=== PATIENT | male | born 1945 | race Caucasian/White ===

== ENCOUNTER → 2019-05-20 12:19 | Outpatient (BNVA) | payer MEDICARE, OTHER, SELFPAY | PROVIDERS: Family Provider Physician Assistant; PCP Physician Assistant; Visit Provider Orthopaedic Surgery | DX: M11.262 Other chondrocalcinosis, left knee (principal); M25.562 Pain in left knee | CPT/HCPCS: 73560; 73565 ==

== ENCOUNTER 2019-05-29 08:54 | Outpatient (CLI) | payer MEDICARE, OTHER, SELFPAY ==
--- NOTE | 2019-05-29 09:30 | MR_ITS ---
WS: [id number] MRI LEFT KNEE NONCONTRAST TECHNIQUE: Axial PD, coronal PD fat sat, coronal PD, sagittal PD, and sagittal PD fat-sat images obta ined. CLINICAL INFORMATION: pain, positive Thesaley's exam COMPARISON: None. FINDINGS: Distal quadriceps and patella tendons are intact. Small amount of prepatellar soft tissue edema. Ante rior and posterior cruciate ligaments are intact. Acute appearing horizontal tear involving the poste rior horn medial meniscus extending to the articular surface. Anterior horn is better preserved. Norm al lateral meniscus. Mild chondromalacia patella. Medial and lateral patellar retinaculum are intact. Normal popliteal fos sa. Edema along the superficial fibers medial collateral ligament and patellar retinaculum consistent with ligamentous strain. MCL appears grossly intact. Normal lateral collateral ligament. Small amoun t of edema involving the posterior medial femoral condyle likely due to reactive edema or contusion. Mild chondromalacia involving the medial and lateral joint compartments. MR/MR knee LT wo con* [id number] IMPRESSION: 1. Acute appearing horizontal tear involving the posterior horn medial meniscu s extending to the articular surface. 2. Small amount of edema involving the medial femoral condyle along the outer margin articular surface. Adjacent edema in the overlying soft tissues. 3. Small amount of edema involving the proximal superficial fibers of the MCL insertion which appears grossly intact. Small amount of edema along the medial patellar retinaculum. 4. Anterior and posterior cruciate ligaments are intact. 5. Mild chondromalacia patella.
== END 2019-05-29 08:55 | disposition home or self-care (01) ==
LOC: RADSHAW 08:58
PROVIDERS: Family Provider Physician Assistant; PCP Physician Assistant; Visit Provider Orthopaedic Surgery
DX: S83.242A Other tear of medial meniscus, current injury, left knee, initial encounter (principal); M25.562 Pain in left knee; X58.XXXA Exposure to other specified factors, initial encounter; M22.42 Chondromalacia patellae, left knee; R60.1 Generalized edema
CPT/HCPCS: 73721

== ENCOUNTER 2019-06-04 10:19 | Day surgery (SDC) | payer MEDICARE, OTHER, SELFPAY ==
[2019-06-03 15:44] VITALS: BMI 25.5
[2019-06-04] VITALS (7 sets, daily range): BP systolic 139–168; BP diastolic 73–100; PULSE 65–93; RESP 16–18; TEMP 36.2–37; O2SAT 96–100
[2019-06-04] MEDS: sodium chloride 0.9% 1,000 ML 30 ML IV (10:59)
--- NOTE | 2019-06-04 11:12 | ANES.PREANES ---
Pre-Anesthetic Assessment Pre-Anesthetic Assessment: Height/Weight: Height 1.8 m Weight 83.007 kg Temp Pulse Resp BP Pulse Ox 98.6 F 93 18 163/100 98 06/04/19 10:46 06/04/19 10:46 06/04/19 10:46 06/04/19 10:46 06/04/19 10:46 Preop Diagnosis: left knee medial meniscal tear Proposed Procedure: Operation Date: 06/04/19 12:00 Proposed Procedures p Knee Arthroscopy with meniscectomy 40341 S83.207A(Left) - Singh Zabala DO Last intake: Intake Last Liquid Date 06/03/19 Last Liquid Time 18:00 Last Solid Date 06/03/19 Last Solid Time 18:00 Social: Packs per day: 1 Pack years: 4 Comment: quit 50 y Exam: Pre-Anes Outpt Exam: alert, oriented x 3, clear to auscultation bilaterally and regular rate & rhythm Airway: Submandibular: WNL Cervical ROM: Other MP: 2 CV/HEM: CV/HEM: HTN Comments: off meds 6y ago GI: Comments: s/p ulcerative colitis s/p colectomy Metabolic: Metabolic: DM Comments: off meds post 64# x 3 months Musc/skel: Musc/skel: Lower Back Pain Comments: nonradiculopahty Meds/Allergies Current Medications: Current Medications Generic Name Dose Route Start Last Admin Trade Name Freq PRN Reason Stop Dose Admin Sodium Chloride 1,000 mls @ 30 ml s/hr 06/04/19 10:45 06/04/19 10:59 Sodium Chloride 0.9% IV 06/05/19 10:44 30 mls/hr .Q24H SUNSHINE Administration PFSH Anesthesia PFSH: Family History (Updated 06/03/19 @ 15:42 by Chitra Levy) Other Diabetes Lung cancer Social History Smoking and tobacco status: never smoked Alcohol intake: never Data Anesthesia Cardiac Studies: No Data to Display
--- NOTE | 2019-06-04 12:38 | PM.HPUD ---
H&P update H&P Update: DATE OF SURGERY/PROCEDURE: 06/04/19 DATE H&P PERFORMED: 06/02/19 H&P UPDATE INFORMATION: H&P completed within last 30 days PREOP DIAGNOSIS: left knee medial meniscal tear PRIMARY INDICATION FOR PROCEDURE: left knee arthroscopy with med meniscectomy PLANNED PROCEDURE: Operation Date: 06/04/19 12:00 Proposed Procedures p Knee Arthroscopy with meniscectomy 27766 S83.207A(Left) - Singh Zabala, DO Full H&P Medications/Allergies: Current Medications: Current Medications Generic Name Dose Route Start Last Admin Trade Name Freq PRN Reason Stop Dose Admin Sodium Chloride 1,000 mls @ 30 ml s/hr 06/04/19 10:45 06/04/19 10:59 Sodium Chloride 0.9% IV 06/05/19 10:44 30 mls/hr .Q24H SUNSHINE Administration Perinent History: Family History: Family History (Updated 06/03/19 @ 15:42 by Chitra Levy) Other Diabetes Lung cancer Social History: Social History Smoking and tobacco status: never smoked Alcohol intake: never
[2019-06-04] MEDS: EPINEPHrine 1 mg/mL INJ 3 MG XX (13:06)
[2019-06-04] MEDS: neomycin-poly-bacitracin oint 28 gm 1 APPLIC TOPICAL (13:27)
[2019-06-04] MEDS: triamcinolone 40 mg/mL SDV IM (13:27)
--- NOTE | 2019-06-04 13:37 | P.OP_ITS ---
Operative Report Date of procedure: 06/04/19 Pre-op Diagnosis: left knee medial meniscal tear Post-op diagnosis: other Post-op Diagnosis: Left knee medial parapatellar plica Degenerative tear left lateral meniscus Procedure Done: Diagnostic arthroscopy of the left knee with resection of lateral meniscal tear and resection of medial parapatellar plica Implants: Not applicable Specimens removed/disposition: synovium, plica and lateral meniscus removed in operating room and disposed of in operating room Pathology: none sent Surgeon: Singh Zabala Anesthesia: General Estimated blood loss (mL): 5 Tourniquet time (min): 20 (At 300 mmHg pressure) Complications: None Findings: Mild chondromalacia patella No pathology noted in medial lateral gutters Thickened medial parapatellar plica with a flap of tissue that was displacing into the medial joint line. Changes suggestive of chondrocalcinosis in the m edial lateral compartments of the knee. No tearing of the medial meniscus noted Degenerative fraying with chondral calcinosis noted within the degenerative tearing areas of the lateral meniscus. Softening of the articular cartilage of the tibial plateau with early grade 2 changes. Anterior and posterior cruciate ligaments are intact both visually endoprobe Condition: stable Disposition: PACU Brief History: 73-year-old white male with persistent complaints of medial joint pain of the left knee. X-ray show mild interim changes but not [id number] changes. Findings suggestive of chondrocalcinosis. The patient underwent MRI examination which showed increased signal in the medial meniscus possibly suggestive of medial meniscal tear. Risk, benefits financial complications of surgery is cussed with the patient. Risks of surgery include are not limited to failure to relieve all pain, nerve/blood vessel/injury, infection. There is a potential he could require more surgery at a later date. Medical complications can include blood clots, heart attack, stroke risk up to including . All questions were answered patient was agreeable to proceed with surgery. Procedure: Patient identified. Surgical site was signed. Surgical permit was signed. The patient received 1.5 g of Zinacef intravenously for surgical prophylaxis. He was taken to the operating. He was placed supine on the operating room table. He was then placed under general anesthesia without difficulty. A tourniquet is placed about the upper aspect left thigh. The left lower extremities and sterilely prepped and draped in usual fashion. A timeout was performed. The operative limb was exsanguinated using Esmarch bandage tourniquet inflated to 300 mmHg pressure. Standard anteromedial anterolateral portals were made. The arthroscope was inserted through the anterolateral portal. The knee was distended using arthroscopic pump with sterile saline and dilute epinephrine solution. Arthroscopic probe was placed through the anteromedial portal. See the above findings. Using a motorized shaver resected the thickened plica band that was flipping into the medial joint. We visualize the lateral compartment using a meniscal biters motorized shaver resected the free edge fraying of the midportion to the anterior horn of the lateral meniscus. The knee was irrigated with sterile saline from the arthroscopic pump. The knee was injected with 10 cc of half percent ropivacaine and 40 mg of Kenalog. The 2 portal sites were closed with 4-0 nylon. Antibiotic ointment followed by sterile dressings and an Harpreet wrap from ankle to mid thigh was applied. Tourniquet was deflated during application of dressings. The patient was aroused from general anesthesia. He was taken to recovery. He tolerated surgery well. All counts are correct.
== END 2019-06-04 15:00 | disposition home or self-care (01) ==
PROVIDERS: Family Provider Physician Assistant; PCP Physician Assistant; Visit Provider Orthopaedic Surgery
PROC: (CPT 29870; principal; 2019-06-04 12:00)
DX: S83.242A Other tear of medial meniscus, current injury, left knee, initial encounter (principal); X58.XXXA Exposure to other specified factors, initial encounter; Z83.3 Family history of diabetes mellitus; I10 Essential (primary) hypertension; E11.9 Type 2 diabetes mellitus without complications; Z87.891 Personal history of nicotine dependence
CPT/HCPCS: 29881; 12345; 96365; J0171; J0697; J1885; J2001; J2250; J2704; J2795; J3010; J3301; J7030; J7050

== ENCOUNTER 2019-06-23 09:38 | Outpatient (CLI) | payer MEDICARE, OTHER, SELFPAY ==
[2019-06-23 10:37] LABS: Basophils % 0.5 %; Eosinophils # 0.1 10^3/uL (0.0-0.8); Eosinophils % 1.1 %; Hematocrit 38.3 % (42.0-52.0); Hemoglobin 12.4 g/dL (11.7-16.6); Lymphocytes # 0.9 10^3/uL (0.8-4.8); Lymphocytes % 16.7 %; Mean Corpuscular HGB Conc 32.4 g/dL (30.0-36.0); Mean Corpuscular Hemoglobin 30.5 pg (28.0-34.0); Mean Corpuscular Volume 94.3 fL (80-94); Mean Platelet Volume 9.1 fL (7.4-10.4); Monocytes # 0.7 10^3/uL (0.2-0.9); Monocytes % 11.6 %; Neutrophils # 3.9 10^3/uL (1.8-7.7); Neutrophils % 69.9 %; Nucleated Red Blood Cells % 0 %; Platelet Count 166 10^3/cmm (130-400); Red Blood Count 4.06 10^6/uL (4.1-5.3); Red Cell Distribution Width 14.1 % (12.1-15.1); White Blood Count 5.6 10^3/uL (4.0-10.0)
[2019-06-23 10:57] LABS: Alanine Aminotransferase 12 U/L (0-41); Albumin Level 3.9 g/dL (3.5-5.2); Alkaline Phosphatase 85 IU/L (40-130); Anion Gap 19.2 (5-19); Aspartate Amino Transferase 18 U/L (0-40); Blood Urea Nitrogen 16 mg/dL (8-23); Calcium 10.1 mg/dL (8.5-10.5); Carbon Dioxide 26 mmol/L (22-29); Chloride 102 mmol/L (98-107); Globulin 4.6 g/dL (1.3-4.6); Glucose 109 mg/dL (65-115); Potassium 4.2 mmol/L (3.5-5.1); Sodium 143 mmol/L (136-145); Total Bilirubin 0.4 mg/dL (0.15-1.2); Total Protein 8.5 g/dL (6.6-8.7)
[2019-06-23 11:25] LABS: Lactate Dehydrogenase 144 U/L (135-225)
[2019-06-23 11:32] LABS: Erythrocyte Sedimentation Rate 66 mm/hr (0-10)
== END 2019-06-23 09:39 | disposition home or self-care (01) ==
LOC: CT 09:39
PROVIDERS: Family Provider Physician Assistant; PCP Physician Assistant; Visit Provider Internal Medicine Medical Oncology
DX: R59.0 Localized enlarged lymph nodes (principal); K51.90 Ulcerative colitis, unspecified, without complications; R59.1 Generalized enlarged lymph nodes; I71.9 Aortic aneurysm of unspecified site, without rupture; R91.8 Other nonspecific abnormal finding of lung field
CPT/HCPCS: 36415; 80053; 83615; 85025; 85651; 86141

== ENCOUNTER 2019-06-23 09:40 | Outpatient (CLI) | payer MEDICARE, OTHER, SELFPAY ==
--- NOTE | 2019-06-23 10:00 | CT_ITS ---
WS: [id number] CT CHEST, ABDOMEN AND PELVIS WITH CONTRAST HISTORY: NODULE OF R LUNG/ LYMPHADENOPATHY TECHNIQUE: Contiguous 5 mm axial imaging performed through the chest, abdomen and pelvis with IV cont rast, oral contrast has been provided. Coronal and sagittal reformats chest. Coronal and sagittal ref ormats through the abdomen and pelvis. All CT scans at [facility] use at least one of the se dose optimization techniques: automated exposure control; mA and/or kV adjustment per patient size (includes targeted exams where dose is matched to clinical indication); or iterative reconstruction. CONTRAST: Omnipaque 300; 95 mL IV. DLP: 1605.74 mGy.cm COMPARISON: 02/27/2019, 12/19/2018 and 09/21/[address]: Lungs are well-aerated. No change in the RIGHT lower lobe 4 mm pulmonary nodule since 2018. New RIGHT middle lobe nodule measures 4.1 mm. There are several new ill-defined opacifications in the RIGHT middle lobe adjacent to the superior fissure which may be inflammatory. No pericardial o r pleural effusions. Mild atherosclerosis aorta. Normal size pulmonary artery. No adenopathy. Moderat e coronary artery calcifications. Small hiatal hernia. Abdomen CT: Liver, spleen and pancreas are negative. No acute process. Gallbladder is normally disten ded without adjacent inflammation. Normal adrenal glands. Mild perinephric stranding around each kidn ey with no obstruction. Dilatation of the mid infrarenal abdominal aorta with a maximum diameter of 3 .6 cm. Probably a saccular aneurysm with no change or increase. Calcification continues into the prox imal iliac arteries. Multiple lymph nodes are reidentified at the mesenteric root. Overall these lymp h nodes continue to decrease slightly in size since 02/27/2019. There are a few retroperitoneal lymph nodes which are stable. The largest lymph node anterior to the IVC below the duodenum measures 5.0 x 3.1 cm with slight decrease in size. Overall no new or increasing size of lymphadenopathy. No ascite s. Pelvic CT: No free fluid in the pelvis. Significant artifact through the pelvis secondary to patient' s bilateral hip prostheses. This is obscuring detail at the anastomotic site near the rectum. No recu rrent lesions are identified. No obstructive pattern. Biconcave L2 fracture is stable. Severe degenerative changes at L5-S1. Bilateral hip arthroplasties. CT/CT chest abd pel w con* IMPRESSION: 1. Prior colectomy. No obstructive pattern or new mass identified. 2. Mesenteric and retroperitoneal adenopathy is still identified but there has been a decrease in size of the lymph nodes overall with no new or increasing a denopathy. 3. Stable aortic aneurysm. 4. New RIGHT middle lobe nodules and probable postinflammatory opacifications. Recommend follow-up chest CT in 3 months.
[2019-06-23] MEDS: iohexol 300 mg/mL 100 mL Btl IV (12:01)
[2019-06-23] MEDS: iohexol 300 mg/mL 50 mL Btl PO (12:02)
== END 2019-06-23 09:41 | disposition home or self-care (01) ==
LOC: RAD 09:43
PROVIDERS: Family Provider Physician Assistant; PCP Physician Assistant; Visit Provider Physician Assistant
DX: R91.1 Solitary pulmonary nodule (principal); R59.9 Enlarged lymph nodes, unspecified; I71.9 Aortic aneurysm of unspecified site, without rupture; R91.8 Other nonspecific abnormal finding of lung field
CPT/HCPCS: 71260; 74177

== ENCOUNTER 2019-06-25 06:00 | Outpatient (CLI) | payer MEDICARE, OTHER, SELFPAY ==
--- NOTE | 2019-06-25 18:52 | ONC FU_ITS ---
Dr. Haq Patient Follow-Up Note Patient: Donta Gomes Unit #: [id number]: [id number] Dicatated By: Jason Haq M.D.Date of Visit:Jun 25, 2019 Onc Med Follow-up/Prog Note Chief Complaint: Lymphadenopathy. History of Present Illness: This is a 73 year-old man with retroperitoneal lymphadenopathy. He has a history of ulcerative colitis, initially diagnosed in 1991. He underwent total colectomy in 1994. He is currently not on any medication for it. He also has significant degenerative arthritis, for which he had undergone bilateral total hip arthroplasty. The procedure on the right was complicated by loosening of the femoral stem, requiring a revision procedure in August 2010. It was then further complicated by a periprosthetic right femur fracture which required bone grafting in March 2011. On 09/21/2018 he presented to the emergency room after he had fallen at home and injured his back. He apparently also sustained a head injury with loss of consciousness. His evaluation included a CT pulmonary angiogram, which showed no evidence for pulmonary embolus or other acute findings. There was evidence, though, of vangie hepatis and retroperitoneal lymphadenopathy, consisting of predominantly subcentimeter lymph nodes. He continued to have back pain, and the lumbar spine x-ray on 11/03/2018 showed evidence of a 25% anterior superior compression fracture at L2. Also noted were degenerative changes at L3-L4, L4-L5, and L5-S1. Further evaluation with CT abdomen/pelvis on 11/12/2018 showed lymphadenopathy around the celiac axis, retroperitoneum, and pancreatic head, with the largest soft tissue mass measuring 3.4 x 5.5 cm just inferior to the pancreatic head into the right of the midline. Numerous additional smaller lymph nodes were noted around the celiac axis, pancreas, and retroperitoneum. Also noted were right iliac lymph nodes, the largest measuring 1.5 cm. There was mild right-sided colonic wall thickening consistent with inflammatory or neoplastic change. There is age indeterminate compression fracture at L2. There were additional mixed lytic and sclerotic changes at L3 and L4. Head MRI showed no acute infarct, hemorrhage, or mass effect. A DEXA scan showed normal bone mineral density. On 12/19/[address] directed needle biopsy of the right retroperitoneal lymph node. The procedure was abandoned, as a safe window for the biopsy could not be identified. It was noted that the right retroperitoneal lymph node appeared stable from the November 2018 study, measuring 5.6 x 3.5 cm. I had seen him initially on 12/29/2018. He had limited activity due to his chronic right hip/femur issues, and he also reported having a long-standing problem with loose stools. He was otherwise not symptomatic. We discussed the fact that based on the size of the retroperitoneal lymph nodes, the CT findings were suspicious for a neoplastic process. However, as there has been no significant interval change between the November CT and the attempted needle biopsy procedure in December, he opted to just continue on close observation/expectant management. His medical illnesses, in addition to ulcerative colitis, include hypertension, hyperlipidemia, type II diabetes with peripheral neuropathy, chronic kidney disease, degenerative arthritis, benign prostatic hypertrophy, and macular degeneration. He also has vitamin B 12 deficiency. He has a history of smoking 1 pack of cigarettes daily, but only for 6 years. He quit smoking in 1972. He averages 1-2 alcoholic beverages 6 days a week. Interim History: Repeat CT abdomen/pelvis on 02/27/2019 showed stable retroperitoneal and mesenteric adenopathy since 11/12/2018. The largest lymph node on the right measured 5.4 x 3.6 cm. An abdominal aortic aneurysm appeared stable at 3.6 cm. In the absence of any evidence of disease progression, he continued on observation/expectant management. His CT scans of the chest, abdomen, and pelvis on 06/23/2019 showed no change in the right lower lobe pulmonary nodule measuring 4 mm. There is a new right middle lobe nodule measuring 4.1 mm. Also noted were several new ill-defined opacifications in the right middle lobe adjacent to the superior fissure, felt to be most likely inflammatory. There was mild perinephric stranding around each kidney, with no evidence of obstruction. The abdominal aortic aneurysm. Stable at 3.6 cm. Multiple lymph nodes at the mesenteric root continue to show slight decrease in size. A few retroperitoneal lymph nodes appeared stable. The largest node anterior to the IVC below the duodenum measured 5.0 x 3.1 cm with slight decrease in size. There was no new or increasing lymphadenopathy noted. He is seen for a followup visit. He has been feeling good generally. He says his energy is not bad. He had arthroscopic left knee surgery 3 weeks ago, and he still has somewhat restricted activity. He says he is walking, though. ECOG score is 1. He has good appetite. He has no fever or night sweats. He has no shortness of breath, cough, or chest pain. He has no GI or complaints. His left knee is still a little sore. He has no other joint or bone pain. He has neuropathy in his feet. Medications: Amoxicillin 1 Tablet (of 500 mg) Oral PRN, Aspirin 1 Tablet (of 81 mg) Oral daily, Atorvastatin Calcium 0.5 Tablet (of 80 mg) Oral at bedtime, B Complex 1 Tablet Oral daily, Flonase 1 spray(s) (of 50 mcg/act) Suspension Nasal at bedtime, Lomotil 2 Tablet (of 2.5-0.025 mg) Oral t.i.d. PRN, Norvasc 0.5 Tablet (of 10 mg) Oral daily Allergies: BRUCE Inhibitors, Lisinopril, and Morphine Sulfate. Review of Systems: Constitutional - He is feeling pretty good and he has good energy. He had arthroscopic surgery on his left knee about 3 weeks ago. His activity has declined somewhat. His appetite is good and his weight is up slightly. No fever, chills, hot flashes, or night sweats. ECOG score is 1, ENMT - No sinus congestion/drainage. No mouth sores. No sore throat or difficulty swallowing, Hematologic/Lymphatic - He bruises easily, Respiratory - No shortness of breath. No cough. No pleuritic pain or hemoptysis, Cardiovascular - No angina pain. No palpitations, Gastrointestinal - No nausea or vomiting. No heartburn or acid reflux. No diarrhea or constipation. No blood in the stool or black stools, Genitourinary (M) - No dysuria or hematuria. No urinary frequency. No urgency or incontinence, Musculoskeletal - His left knee is still sore from his surgery. He has no other joint or bone pain, Integumentary - No skin complications, Neurologic - No headache or dizziness. He has neuropathy in his feet, Psychiatric - No anxiety or depression. No insomnia. Vital Signs: Performed on Jun 25, 2019 08:57 Height - 71.00 in Weight - 193.2 lbs (HIGH) BSA - 2.08 sq.m BMI - 26.95 Temperature - 98.6 F Pulse - 93 /min Respiration - 20 /min BP - 150/80 mm(hg) (HIGH) O2 Sat - 96 % Pain - 2 Physical Examination: Constitutional - He looks good generally, Eyes - Sclerae nonicteric. Conjunctivae clear, ENMT - No lesions noted in the oral cavity, Hematologic/Lymphatic - No cervical, clavicular, or axillary adenopathy, Respiratory - Lungs are clear with good air movement bilaterally, Cardiovascular - Heart rhythm is regular. There is no murmur, gallop, or rub noted, Abdomen - Soft. Liver and spleen are not enlarged. There is no abdominal mass or ascites noted and there is no inguinal adenopathy, Extremities - No edema. Pedal pulses are palpable bilaterally, Neurologic - No focal neurologic deficits noted. Lab/Imaging: CBC shows hemoglobin 12.4 g, white blood cell count 5600,and platelet count 166,000. Sed rate is moderately elevated at 66 mm/hour. CRP is mildly elevated at 1.770 mg/dL. Comprehensive metabolic profile is unremarkable. Impression: 1. Patient with significant retroperitoneal lymphadenopathy, with the largest node just inferior to the pancreatic head into the right of the midline measuring 5.6 x 3.5 cm. By size criteria, it was suspected to be malignant. 2. CT directed needle biopsy was attempted 12/19/2018, but the procedure was abandoned for safety reasons. There was, however, no interval increase in the adenopathy compared to the prior CT scan from 11/12/2018. 3. He has had persistent low back pain following a fall and back injury in September 2018, presumably due to L2 vertebral compression fracture. 4. He has known history of ulcerative colitis, for which she underwent total colectomy 1994. He is currently not on medication for it. His other medical illnesses include: 5. Hypertension. 6. Hyperlipidemia. 7. Type II diabetes. 8. Chronic kidney disease. 9. Peripheral neuropathy. 10. Benign prostatic hypertrophy. 10. Degenerative arthritis/degenerative disease of the spine. 11. He had complications following previous right total hip arthroplasty resulting in periprosthetic fracture of the right femur and requiring bone grafting in March 2011. 12. He has B12 deficiency associated with the total colectomy. 13. He has macular degeneration of the right eye. Based on the size of the retroperitoneal lymph nodes, the CT findings were felt to be suspicious for a neoplastic process. However, he was not symptomatic with it, and thus far during followup there has been progression of the adenopathy or other fndings of malignancy. Plan: In the absence of any evidence of disease progression, he will continue on on observation/expectant management. I will see him again with a repeat CT scans in 3 months. If the findings are stable, I will then increase the interval of his surveillance to 6 months. Signed By: Jason Haq M.D. <<Signature on File>>
== END 2019-06-25 06:01 | disposition home or self-care (01) ==
LOC: ONCMED 15:13
PROVIDERS: Family Provider Physician Assistant; PCP Physician Assistant; Visit Provider Internal Medicine Medical Oncology
DX: R59.0 Localized enlarged lymph nodes (principal); E11.22 Type 2 diabetes mellitus with diabetic chronic kidney disease; I12.9 Hypertensive chronic kidney disease with stage 1 through stage 4 chronic kidney disease, or unspecified chronic kidney disease; N18.9 Chronic kidney disease, unspecified; E11.42 Type 2 diabetes mellitus with diabetic polyneuropathy; N40.0 Benign prostatic hyperplasia without lower urinary tract symptoms; M46.80 Other specified inflammatory spondylopathies, site unspecified; E53.8 Deficiency of other specified B group vitamins; Z90.49 Acquired absence of other specified parts of digestive tract
CPT/HCPCS: G0463

== ENCOUNTER 2019-09-29 07:33 | Outpatient (CLI) | payer MEDICARE, OTHER, SELFPAY ==
[2019-09-29 08:04] LABS: Basophils % 0.4 %; Eosinophils # 0.2 10^3/uL (0.0-0.8); Eosinophils % 2.2 %; Hematocrit 40.4 % (42.0-52.0); Hemoglobin 13.1 g/dL (11.7-16.6); Lymphocytes # 1.2 10^3/uL (0.8-4.8); Lymphocytes % 18.1 %; Mean Corpuscular HGB Conc 32.4 g/dL (30.0-36.0); Mean Corpuscular Volume 95.5 fL (80-94); Mean Platelet Volume 8.7 fL (7.4-10.4); Monocytes # 0.8 10^3/uL (0.2-0.9); Monocytes % 11.1 %; Neutrophils # 4.6 10^3/uL (1.8-7.7); Neutrophils % 67.9 %; Nucleated Red Blood Cells % 0 %; Platelet Count 205 10^3/cmm (130-400); Red Blood Count 4.23 10^6/uL (4.1-5.3); Red Cell Distribution Width 13.8 % (12.1-15.1); White Blood Count 6.7 10^3/uL (4.0-10.0)
--- NOTE | 2019-09-29 08:10 | CT_ITS ---
WS: [id number] CT CHEST, ABDOMEN, AND PELVIS TECHNIQUE: Contrast-enhanced CT of the chest, abdomen, and pelvis with coronal and sagittal reformatt ed images. CLINICAL INFORMATION: PULMONARY NODULE/LYMPHADENOPATHY COMPARISON: CT June 23, 2019, February 27, 2019, December 19, 2018, November 12, 2018. DLP: 1580.[address] scans at [facility] use at least one of these dose optimization techniques: automat ed exposure control; mA and/or kV adjustment per patient size (includes targeted exams where dose is matched to clinical indication); or iterative reconstruction. CT CHEST: Moderate chronic emphysematous changes. No acute pulmonary infiltrates. Slight bibasilar atelectasis. Stable noncalcified right lower lobe 4 mm pulmonary nodule. Stable right middle lobe 4 mm pulmonary nodule. No acute pulmonary infiltrates today. Coronary calcification. Small esophageal hiatal hernia. No mediastinal or hilar lymphadenopathy. No axillary lymphadenopathy. CT ABDOMEN AND PELVIS: Normal liver. Normal gallbladder. Normal spleen. Small esophageal hiatal herni a. Normal pancreas. Adrenal glands are normal. No hydronephrosis. Mild renal cortical atrophy. Stable shotty periaortic and retroperitoneal lymph nodes. These are stable in appearance since the prior ex amination.Largest lymph node in the aortocaval region and today measures 4.5 x 2.6 cm decrease in siz e from previous. Stable prominent lymph nodes along the mesenteric root. Stable infrarenal abdominal aortic aneurysm. This is unchanged in appearance. This measures 3.6 x 3.2 CM. Bilateral THAs degrade images in the pelvis. Postoperative changes prior colectomy. Stable saccular infrarenal abdominal aortic aneurysm measuring 3.6 CM by 3.2 cm. Moderate aortic athe romatous disease with biiliac calcification. CT/CT chest abd pel w con* IMPRESSION: 1. 1 or 2 stable tiny 4 mm noncalcified pulmonary nodules described above. No new pulmonary opacities. 2. Previously described nodular infiltrate in the right middle lobe has resolv ed. 3. No mediastinal or hilar lymphadenopathy. 4. No evidence of progressive disease in the abdomen or pelvis. 5. Improved aortocaval lymph node is decreased in size today measuring 4.5 x 2 .6 cm. 6. Stable shotty periaortic and retroperitoneal lymph nodes. Stable prominent lymph nodes along the mesenteric root. 7. Prior colectomy. 8. Bilateral THAs degrade images in the pelvis. 9. Stable abdominal aortic aneurysm measuring 3.6 x 3.2 CM. 10. Stable biconcave compression at L2.
[2019-09-29] MEDS: iohexol 300 mg/mL 50 mL Btl PO (08:12)
[2019-09-29 08:14] LABS: Alanine Aminotransferase 13 U/L (0-41); Albumin Level 4.2 g/dL (3.5-5.2); Alkaline Phosphatase 83 IU/L (40-130); Anion Gap 17.2 (5-19); Aspartate Amino Transferase 19 U/L (0-40); Blood Urea Nitrogen 13 mg/dL (8-23); Calcium 10.3 mg/dL (8.5-10.5); Carbon Dioxide 28 mmol/L (22-29); Chloride 100 mmol/L (98-107); Globulin 4.5 g/dL (1.3-4.6); Glucose 125 mg/dL (65-115); Lactate Dehydrogenase 121 U/L (135-225); Osmolality Calculated 290 mOsm/kg (285-295); Potassium 4.2 mmol/L (3.5-5.1); Sodium 141 mmol/L (136-145); Total Bilirubin 0.3 mg/dL (0.15-1.2); Total Protein 8.7 g/dL (6.6-8.7)
[2019-09-29 09:01] LABS: Erythrocyte Sedimentation Rate 57 mm/hr (0-10)
[2019-09-29] MEDS: iohexol 300 mg/mL 100 mL Btl IV (09:05)
== END 2019-09-29 07:34 | disposition home or self-care (01) ==
PROVIDERS: Family Provider Physician Assistant; PCP Physician Assistant; Visit Provider Internal Medicine Medical Oncology
DX: R91.8 Other nonspecific abnormal finding of lung field (principal); R59.1 Generalized enlarged lymph nodes; I71.4 Abdominal aortic aneurysm, without rupture; M48.56XA Collapsed vertebra, not elsewhere classified, lumbar region, initial encounter for fracture
CPT/HCPCS: 36415; 71260; 74177; 80053; 83615; 85025; 85651; 86141

== ENCOUNTER 2019-10-01 08:54 | Outpatient (CLI) | payer MEDICARE, OTHER, SELFPAY ==
--- NOTE | 2019-10-04 13:48 | ONC FU_ITS ---
Dr. Haq Patient Follow-Up Note Patient: Donta Gomes Unit #: [id number]: [id number] Dicatated By: Jason Haq M.D.Date of Visit:October 01, 2019 Onc Med Follow-up/Prog Note Chief Complaint: Lymphadenopathy. History of Present Illness: This is a 73 year-old man with retroperitoneal lymphadenopathy. He has a history of ulcerative colitis, initially diagnosed in 1991. He underwent total colectomy in 1994. He is currently not on any medication for it. He also has significant degenerative arthritis, for which he had undergone bilateral total hip arthroplasty. The procedure on the right was complicated by loosening of the femoral stem, requiring a revision procedure in August 2010. It was then further complicated by a periprosthetic right femur fracture which required bone grafting in March 2011. On 09/21/2018 he presented to the emergency room after he had fallen at home and injured his back. He apparently also sustained a head injury with loss of consciousness. His evaluation included a CT pulmonary angiogram, which showed no evidence for pulmonary embolus or other acute findings. There was evidence, though, of vangie hepatis and retroperitoneal lymphadenopathy, consisting of predominantly subcentimeter lymph nodes. He continued to have back pain, and the lumbar spine x-ray on 11/03/2018 showed evidence of a 25% anterior superior compression fracture at L2. Also noted were degenerative changes at L3-L4, L4-L5, and L5-S1. Further evaluation with CT abdomen/pelvis on 11/12/2018 showed lymphadenopathy around the celiac axis, retroperitoneum, and pancreatic head, with the largest soft tissue mass measuring 3.4 x 5.5 cm just inferior to the pancreatic head into the right of the midline. Numerous additional smaller lymph nodes were noted around the celiac axis, pancreas, and retroperitoneum. Also noted were right iliac lymph nodes, the largest measuring 1.5 cm. There was mild right-sided colonic wall thickening consistent with inflammatory or neoplastic change. There is age indeterminate compression fracture at L2. There were additional mixed lytic and sclerotic changes at L3 and L4. Head MRI showed no acute infarct, hemorrhage, or mass effect. A DEXA scan showed normal bone mineral density. On 12/19/[address] directed needle biopsy of the right retroperitoneal lymph node. The procedure was abandoned, as a safe window for the biopsy could not be identified. It was noted that the right retroperitoneal lymph node appeared stable from the November 2018 study, measuring 5.6 x 3.5 cm. I had seen him initially on 12/29/2018. He had limited activity due to his chronic right hip/femur issues, and he also reported having a long-standing problem with loose stools. He was otherwise not symptomatic. We discussed the fact that based on the size of the retroperitoneal lymph nodes, the CT findings were suspicious for a neoplastic process. However, as there has been no significant interval change between the November CT and the attempted needle biopsy procedure in December, he opted to just continue on close observation/expectant management. His medical illnesses, in addition to ulcerative colitis, include hypertension, hyperlipidemia, type II diabetes with peripheral neuropathy, chronic kidney disease, degenerative arthritis, benign prostatic hypertrophy, and macular degeneration. He also has vitamin B 12 deficiency. He has a history of smoking 1 pack of cigarettes daily, but only for 6 years. He quit smoking in 1972. He averages 1-2 alcoholic beverages 6 days a week. Interim History: Repeat CT abdomen/pelvis on 02/27/2019 showed stable retroperitoneal and mesenteric adenopathy since 11/12/2018. The largest lymph node on the right measured 5.4 x 3.6 cm. An abdominal aortic aneurysm appeared stable at 3.6 cm. In the absence of any evidence of disease progression, he continued on observation/expectant management. His CT scans of the chest, abdomen, and pelvis on 06/23/2019 showed no change in the right lower lobe pulmonary nodule measuring 4 mm. There is a new right middle lobe nodule measuring 4.1 mm. Also noted were several new ill-defined opacifications in the right middle lobe adjacent to the superior fissure, felt to be most likely inflammatory. There was mild perinephric stranding around each kidney, with no evidence of obstruction. The abdominal aortic aneurysm. Stable at 3.6 cm. Multiple lymph nodes at the mesenteric root continue to show slight decrease in size. A few retroperitoneal lymph nodes appeared stable. The largest node anterior to the IVC below the duodenum measured 5.0 x 3.1 cm with slight decrease in size. There was no new or increasing lymphadenopathy noted. With those findings he continued on observation/expectant. His repeat CT abdomen/pelvis on 09/29/2019 showed slight improvement in the aortocaval lymph node measuring 4.5 x 2.6 cm. Small noncalcified pulmonary nodules appeared stable. There was no mediastinal or hilar adenopathy noted. A previously described nodular infiltrate in the right middle lobe had resolved. Shotty periaortic and retroperitoneal lymph nodes appeared stable as did prominent lymph nodes along the mesenteric root. The abdominal aortic aneurysm appeared stable measuring 3.6 x 3.2 cm. He is seen for a followup visit. He has been feeling good generally. He has somewhat limited activity due to his leg muscles and to torn rotator cuffs. ECOG score is 1. He has good appetite. He has no fever or night sweats. He has no shortness of breath, cough, or chest pain. He has no GI or complaints other than he has been voiding a little more frequently. He has pain in his shoulders and back. He has neuropathy in his feet. His neuropathy pain, though, has improved somewhat with an [id number] preparation (Nerve Shield Plus). Medications: Amoxicillin 1 Tablet (of 500 mg) Oral PRN, Aspirin 1 Tablet (of 81 mg) Oral daily, Atorvastatin Calcium 0.5 Tablet (of 80 mg) Oral at bedtime, B Complex 1 Tablet Oral daily, Calcium 1 Tablet (of 500 mg) Oral daily, Cinnamon Bark 1 Capsule (of 2000 mg) daily, Flonase 1 spray(s) (of 50 mcg/act) Suspension Nasal at bedtime, Lomotil 2 Tablet (of 2.5-0.025 mg) Oral t.i.d. PRN, Norvasc 0.5 Tablet (of 10 mg) Oral daily, Vitamin D3 1 Capsule (of 1000 Units) Oral daily Allergies: BRUCE Inhibitors, Lisinopril, and Morphine Sulfate. Review of Systems: Constitutional - He has pretty good energy, but his activity is somewhat limited. His appetite is good. His weight is up a few pounds. No fever, chills, hot flashes, or night sweats. ECOG score is 1, ENMT - No sinus congestion/drainage. No mouth sores. No sore throat or difficulty swallowing, Hematologic/Lymphatic - He bruises easily, Respiratory - No shortness of breath. No cough. No pleuritic pain or hemoptysis, Cardiovascular - No angina pain. No palpitations, Gastrointestinal - No nausea or vomiting. No heartburn or acid reflux. No diarrhea or constipation. No blood in the stool or black stools, Genitourinary (M) - No dysuria or hematuria. He has been voiding more frequently. No urgency or incontinence, Musculoskeletal - He has pain in both shoulders due to rotator cuff injuries. He has pain in his leg muscles. He also has back pain, Integumentary - No skin complications, Neurologic - No headache or dizziness. He has neuropathy in his feet, Psychiatric - No anxiety or depression. No insomnia. Vital Signs: Performed on October 01, 2019 09:15 Height - 71.00 in Weight - 196.0 lbs (HIGH) BSA - 2.09 sq.m BMI - 27.34 Temperature - 98.5 F Pulse - 82 /min Respiration - 18 /min BP - 127/70 mm(hg) O2 Sat - 96 % Pain - 0 Physical Examination: Constitutional - He looks good generally, Eyes - Sclerae nonicteric. Conjunctivae clear, ENMT - No lesions noted in the oral cavity, Hematologic/Lymphatic - No cervical, clavicular, or axillary adenopathy, Respiratory - Lungs are clear with good air movement bilaterally, Cardiovascular - Heart rhythm is regular. There is no murmur, gallop, or rub noted, Abdomen - Soft. Liver and spleen are not enlarged. There is no abdominal mass or ascites noted and there is no inguinal adenopathy, Extremities - No edema. Dorsalis pedis pulses are palpable bilaterally, Neurologic - No focal neurologic deficits noted. Lab/Imaging: CBC shows hemoglobin 13.1 g, white blood cell count 6700, and platelet count 205,000. Comprehensive metabolic profile is unremarkable. LDH is normal at 121 U/L. Impression: 1. Patient with significant retroperitoneal lymphadenopathy, with the largest node just inferior to the pancreatic head into the right of the midline measuring 5.6 x 3.5 cm. By size criteria, it was suspected to be malignant. 2. CT directed needle biopsy was attempted 12/19/2018, but the procedure was abandoned for safety reasons. There was, however, no interval increase in the adenopathy compared to the prior CT scan from 11/12/2018. 3. He has had persistent low back pain following a fall and back injury in September 2018, presumably due to L2 vertebral compression fracture. 4. He has known history of ulcerative colitis, for which she underwent total colectomy 1994. He is currently not on medication for it. His other medical illnesses include: 5. Hypertension. 6. Hyperlipidemia. 7. Type II diabetes. 8. Chronic kidney disease. 9. Peripheral neuropathy. 10. Benign prostatic hypertrophy. 10. Degenerative arthritis/degenerative disease of the spine. 11. He had complications following previous right total hip arthroplasty resulting in periprosthetic fracture of the right femur and requiring bone grafting in March 2011. 12. He has B12 deficiency associated with the total colectomy. 13. He has macular degeneration of the right eye. Based on the size of the retroperitoneal lymph nodes, the CT findings were felt to be suspicious for a neoplastic process. However, he was not symptomatic with it, and thus far during followup there has been no progression of the adenopathy or other fndings of malignancy on surveillance CT scans. His overall clinical status also remained stable. Plan: He remains on observation/expectant management. Based on the size of the adenopathy, he will require ongoing surveillance, but I will now extend the interval of his CT scans to every 6 months for the next year. Signed By: Jason Haq M.D. <<Signature on File>>
== END 2019-10-01 08:55 | disposition home or self-care (01) ==
LOC: ONCMED 08:55
PROVIDERS: PCP Physician Assistant; Visit Provider Internal Medicine Medical Oncology
DX: R59.0 Localized enlarged lymph nodes (principal); M54.5 Low back pain; E78.5 Hyperlipidemia, unspecified; E11.22 Type 2 diabetes mellitus with diabetic chronic kidney disease; I12.9 Hypertensive chronic kidney disease with stage 1 through stage 4 chronic kidney disease, or unspecified chronic kidney disease; N18.9 Chronic kidney disease, unspecified; E11.42 Type 2 diabetes mellitus with diabetic polyneuropathy; N40.0 Benign prostatic hyperplasia without lower urinary tract symptoms; M19.90 Unspecified osteoarthritis, unspecified site; M48.9 Spondylopathy, unspecified; H35.30 Unspecified macular degeneration; E55.9 Vitamin D deficiency, unspecified; K51.90 Ulcerative colitis, unspecified, without complications; Z90.49 Acquired absence of other specified parts of digestive tract; Z96.641 Presence of right artificial hip joint
CPT/HCPCS: G0463

== ENCOUNTER 2020-04-12 09:19 | Outpatient (CLI) | payer MEDICARE, OTHER, SELFPAY ==
--- NOTE | 2020-04-12 09:36 | CT_ITS ---
WS: [id number] CT CHEST, ABDOMEN AND PELVIS WITH CONTRAST. HISTORY: LOCALIZED ENLARGED LYMPH NODES TECHNIQUE: Contiguous 5 mm axial imaging performed through the chest, abdomen and pelvis with IV cont rast, oral contrast has been provided. Coronal and sagittal reformats chest. Coronal and sagittal ref ormats through the abdomen and pelvis. All CT scans at [facility] use at least one of the se dose optimization techniques: automated exposure control; mA and/or kV adjustment per patient size (includes targeted exams where dose is matched to clinical indication); or iterative reconstruction. CONTRAST: Omnipaque 300; 95 mL IV. DLP: 2265.21 mGycm COMPARISON: 09/29/2019, 06/23/2019 and 02/27/[address]: Hyperinflated lungs from emphysema. No new nodules are identified. Small nodule along the d iaphragmatic surface of the LEFT lower lobe is stable and probably a scar. No pneumonia. No mediastin al or hilar lymph nodes. Very mild atherosclerosis aorta and [place] coronary arteries. Heart size is normal. No pericardial or pleural effusions. Pleural-based calcification RIGHT upper thorax is stable . Subcentimeter LEFT thyroid nodule. Mild straightening of the normal thoracic kyphosis. Abdomen CT: Liver, gallbladder, spleen and pancreas and adrenal glands are negative. No metastatic di sease. No renal mass or obstruction. Moderate atherosclerosis abdominal aorta. Abdominal aortic aneur ysm measures 3.7 cm and is stable. No ascites. GI tract demonstrates no obstruction or colitis. Anast omotic site to the sigmoid and rectum. Significant decrease in size of the largest mesenteric lymph node since 09/29/2019. Lymph node now mayank sures 14 x 29 mm as compared to 26 x 45 mm. There are additional small mesenteric and retroperitoneal lymph nodes. [place] of small bowel in the central abdomen. These loops are nondistended with ora l contrast but I believe these are small bowel loops and not lymph nodes. Pelvic CT: Surgical sutures are noted in the presacral fat. No recurrent adenopathy or mass identifie d. This area is obscured by artifact from the bilateral hip prostheses. Marked straightening of the normal lumbar lordosis. Biconcave compression fracture at L2. Severe disc space narrowing and desiccation at L5-S1. CT/CT chest abd pel w con* IMPRESSION: 1. Moderate improvement in the largest central mesenteric lymph node since 09/10. Lymph node has decreased from 26 x 45 mm to 14 x 29 mm. There are umer nued additional smaller mesenteric and retroperitoneal lymph nodes. 2. Stable saccular aneurysm infrarenal aorta 3.7 cm. 3. No metastatic disease to the lungs, adrenal glands or liver. 4. Stable anastomotic site near the sigmoid/rectum.
[2020-04-12] MEDS: iohexol 300 mg/mL 50 mL Btl PO (09:38)
[2020-04-12] MEDS: iohexol 300 mg/mL 100 mL Btl IV (11:10)
== END 2020-04-12 09:20 | disposition home or self-care (01) ==
LOC: RADWPI 09:26
PROVIDERS: PCP Physician Assistant; Visit Provider Internal Medicine Medical Oncology
DX: R59.0 Localized enlarged lymph nodes (principal); I71.9 Aortic aneurysm of unspecified site, without rupture
CPT/HCPCS: 71260; 74177; Q9967

== ENCOUNTER 2020-04-14 08:45 | Outpatient (CLI) | payer MEDICARE, OTHER, SELFPAY ==
--- NOTE | 2020-04-14 10:07 | ONC FU_ITS ---
Dr. Haq Patient Follow-Up Note Patient: Donta Gomes Unit #: [id number]: [id number] Dicatated By: Jason Haq M.D.Date of Visit:Apr 14, 2020 Onc Med Follow-up/Prog Note Chief Complaint: Lymphadenopathy. History of Present Illness: This is a 74 year-old man with retroperitoneal lymphadenopathy. He has a history of ulcerative colitis, initially diagnosed in 1991. He underwent total colectomy in 1994. He is currently not on any medication for it. He also has significant degenerative arthritis, for which he had undergone bilateral total hip arthroplasty. The procedure on the right was complicated by loosening of the femoral stem, requiring a revision procedure in August 2010. It was then further complicated by a periprosthetic right femur fracture which required bone grafting in March 2011. On 09/21/2018 he presented to the emergency room after he had fallen at home and injured his back. He apparently also sustained a head injury with loss of consciousness. His evaluation included a CT pulmonary angiogram, which showed no evidence for pulmonary embolus or other acute findings. There was evidence, though, of vangie hepatis and retroperitoneal lymphadenopathy, consisting of predominantly subcentimeter lymph nodes. He continued to have back pain, and the lumbar spine x-ray on 11/03/2018 showed evidence of a 25% anterior superior compression fracture at L2. Also noted were degenerative changes at L3-L4, L4-L5, and L5-S1. Further evaluation with CT abdomen/pelvis on 11/12/2018 showed lymphadenopathy around the celiac axis, retroperitoneum, and pancreatic head, with the largest soft tissue mass measuring 3.4 x 5.5 cm just inferior to the pancreatic head into the right of the midline. Numerous additional smaller lymph nodes were noted around the celiac axis, pancreas, and retroperitoneum. Also noted were right iliac lymph nodes, the largest measuring 1.5 cm. There was mild right-sided colonic wall thickening consistent with inflammatory or neoplastic change. There is age indeterminate compression fracture at L2. There were additional mixed lytic and sclerotic changes at L3 and L4. Head MRI showed no acute infarct, hemorrhage, or mass effect. A DEXA scan showed normal bone mineral density. On 12/19/[address] directed needle biopsy of the right retroperitoneal lymph node. The procedure was abandoned, as a safe window for the biopsy could not be identified. It was noted that the right retroperitoneal lymph node appeared stable from the November 2018 study, measuring 5.6 x 3.5 cm. I had seen him initially on 12/29/2018. He had limited activity due to his chronic right hip/femur issues, and he also reported having a long-standing problem with loose stools. He was otherwise not symptomatic. We discussed the fact that based on the size of the retroperitoneal lymph nodes, the CT findings were suspicious for a neoplastic process. However, as there has been no significant interval change between the November CT and the attempted needle biopsy procedure in December, he opted to just continue on close observation/expectant management. His medical illnesses, in addition to ulcerative colitis, include hypertension, hyperlipidemia, type II diabetes with peripheral neuropathy, chronic kidney disease, degenerative arthritis, benign prostatic hypertrophy, and macular degeneration. He also has vitamin B 12 deficiency. He has a history of smoking 1 pack of cigarettes daily, but only for 6 years. He quit smoking in 1972. He averages 1-2 alcoholic beverages 6 days a week. Interim History: Repeat CT abdomen/pelvis on 02/27/2019 showed stable retroperitoneal and mesenteric adenopathy since 11/12/2018. The largest lymph node on the right measured 5.4 x 3.6 cm. An abdominal aortic aneurysm appeared stable at 3.6 cm. In the absence of any evidence of disease progression, he continued on observation/expectant management. His CT scans of the chest, abdomen, and pelvis on 06/23/2019 showed no change in the right lower lobe pulmonary nodule measuring 4 mm. There is a new right middle lobe nodule measuring 4.1 mm. Also noted were several new ill-defined opacifications in the right middle lobe adjacent to the superior fissure, felt to be most likely inflammatory. There was mild perinephric stranding around each kidney, with no evidence of obstruction. The abdominal aortic aneurysm. Stable at 3.6 cm. Multiple lymph nodes at the mesenteric root continued to show slight decrease in size. A few retroperitoneal lymph nodes appeared stable. The largest node anterior to the IVC below the duodenum measured 5.0 x 3.1 cm with slight decrease in size. There was no new or increasing lymphadenopathy noted. His repeat CT abdomen/pelvis on 09/29/2019 showed slight improvement in the aortocaval lymph node measuring 4.5 x 2.6 cm. Small noncalcified pulmonary nodules appeared stable. There was no mediastinal or hilar adenopathy noted. A previously described nodular infiltrate in the right middle lobe had resolved. Shotty periaortic and retroperitoneal lymph nodes appeared stable as did prominent lymph nodes along the mesenteric root. The abdominal aortic aneurysm appeared stable measuring 3.6 x 3.2 cm. With those findings he continued on observation/expectant. His repeat CT scans of the chest, abdomen, and pelvis on 04/12/2020 showed stable left lower lobe pulmonary nodule along the diaphragmatic surface. There was no mediastinal or hilar adenopathy noted. There was significant decrease in the largest mesenteric lymph node measuring 14 x 29 mm compared to 26 x 45 mm on the September 2019 study. There were additional small mesenteric and retroperitoneal lymph nodes without evidence of progression. There were no other findings of metastatic disease. A saccular aneurysm of the infrarenal aorta appeared stable at 3.7 cm. He is seen for a followup visit. He has been feeling good generally. He has good energy and activity tolerance. ECOG score is 0. Appetite also is good. He has no fever or night sweats. He has arthritis pain, mainly in the hands, elbows and shoulders. He says it is a little worse, but still not bad. He also has some numbness/tingling in his feet. He has no other complaints at this time. Medications: Amoxicillin 1 Tablet (of 500 mg) Oral PRN, Aspirin 1 Tablet (of 81 mg) Oral daily, Atorvastatin Calcium 0.5 Tablet (of 80 mg) Oral at bedtime, B Complex 1 Tablet Oral daily, Calcium 1 Tablet (of 500 mg) Oral daily, Cinnamon Bark 1 Capsule (of 2000 mg) daily, Flonase 1 spray(s) (of 50 mcg/act) Suspension Nasal at bedtime, Lomotil 2 Tablet (of 2.5-0.025 mg) Oral t.i.d. PRN, Norvasc 0.5 Tablet (of 10 mg) Oral daily, Vitamin D3 1 Capsule (of 1000 Units) Oral daily, Zinc 1 Tablet (of 50 mg) Oral daily Allergies: BRUCE Inhibitors, Lisinopril, and Morphine Sulfate. Review of Systems: Constitutional - He has good energy and he has normal activity. Appetite is good and weight is stable. He has no fever or night sweats. ECOG score is 0, ENMT - No sinus congestion/drainage. No mouth sores. No sore throat or difficulty swallowing, Hematologic/Lymphatic - He has some bruising, Respiratory - No shortness of breath. No cough. No pleuritic pain or hemoptysis, Cardiovascular - No angina pain. No palpitations, Gastrointestinal - No nausea or vomiting. No heartburn or acid reflux. No diarrhea or constipation. No blood in the stool or black stools, Genitourinary (M) - No dysuria or hematuria. No urinary frequency. No urgency or incontinence, Musculoskeletal - He has arthritis pain, mainly in the hands, elbows, and shoulders. He feels like it is getting a little worse, but it still is not bad, Integumentary - No skin rash, Neurologic - No headache or dizziness. He has numbness/tingling in his feet. No other focal neurologic symptoms, Psychiatric - No anxiety or depression. No insomnia. Vital Signs: Performed on Apr 14, 2020 09:21 Height - 71.00 in Weight - 198.8 lbs (HIGH) BSA - 2.10 sq.m BMI - 27.73 Temperature - 98.6 F Pulse - 79 /min Respiration - 20 /min BP - 146/71 mm(hg) (HIGH) O2 Sat - 97 % Pain - 0 Physical Examination: Constitutional - He looks good generally, Eyes - Sclerae nonicteric. Conjunctivae clear, ENMT - No lesions noted in the oral cavity, Hematologic/Lymphatic - No cervical, clavicular, or axillary adenopathy, Respiratory - Lungs are clear with good air movement bilaterally, Cardiovascular - Heart rhythm is regular. There is no murmur, gallop, or rub noted, Abdomen - Soft. Liver and spleen are not enlarged. There is no abdominal mass or ascites noted and there is no inguinal adenopathy, Extremities - No edema. Pedal pulses are palpable bilaterally, Neurologic - No focal neurologic deficits noted. Impression: 1. Patient with significant retroperitoneal lymphadenopathy, with the largest node just inferior to the pancreatic head into the right of the midline measuring 5.6 x 3.5 cm. By size criteria, it was suspected to be malignant. 2. CT directed needle biopsy was attempted 12/19/2018, but the procedure was abandoned for safety reasons. There was, however, no interval increase in the adenopathy compared to the prior CT scan from 11/12/2018. 3. He has had persistent low back pain following a fall and back injury in September 2018, presumably due to L2 vertebral compression fracture. 4. He has known history of ulcerative colitis, for which he underwent total colectomy 1994. He is currently not on medication for it. His other medical illnesses include: 5. Hypertension. 6. Hyperlipidemia. 7. Type II diabetes. 8. Chronic kidney disease. 9. Peripheral neuropathy. 10. Benign prostatic hypertrophy. 10. Degenerative arthritis/degenerative disease of the spine. 11. He had complications following previous right total hip arthroplasty resulting in periprosthetic fracture of the right femur and requiring bone grafting in March 2011. 12. He has B12 deficiency associated with the total colectomy. 13. He has macular degeneration of the right eye. Based on the size of the retroperitoneal lymph nodes, the CT findings were felt to be suspicious for a neoplastic process. However, he was not symptomatic with it, and during initial followup there was no progression of the adenopathy or there were no other fndings of malignancy on repeat CT scans. As of September [address] scan did show some decrease in the largest mesenteric lymph node, and on the current study it has further decreased, now to 14 x 29 mm compared to 34 x 55 mm on the November 2018 study. He continues to do well clinically. Overall, it appears now that the likelihood of malignancy is very low. Plan: He remains on observation/expectant management. With continued decrease in the adenopathy, I am just going to see him again in 1 year. Signed By: Jason Haq M.D. <<Signature on File>>
== END 2020-04-14 08:46 | disposition home or self-care (01) ==
LOC: ONCMED 08:49
PROVIDERS: PCP Physician Assistant; Visit Provider Internal Medicine Medical Oncology
DX: R59.0 Localized enlarged lymph nodes (principal); M54.5 Low back pain; I10 Essential (primary) hypertension; E78.5 Hyperlipidemia, unspecified; E11.22 Type 2 diabetes mellitus with diabetic chronic kidney disease; N18.9 Chronic kidney disease, unspecified; E11.42 Type 2 diabetes mellitus with diabetic polyneuropathy; N40.0 Benign prostatic hyperplasia without lower urinary tract symptoms; M47.9 Spondylosis, unspecified; D51.9 Vitamin B12 deficiency anemia, unspecified; H35.30 Unspecified macular degeneration; Z79.899 Other long term (current) drug therapy
CPT/HCPCS: G0463

== ENCOUNTER 2020-10-26 13:37 | Outpatient (CLI) | payer MEDICARE, OTHER, SELFPAY ==
--- NOTE | 2020-10-26 13:40 | CT_ITS ---
WS: [id number] CT CHEST AND ABDOMEN WITH CONTRAST HISTORY: Mesenteric lymphadenopathy. TECHNIQUE: Axial imaging is performed through the chest and abdomen with IV and oral contrast.. Sagit rubina and coronal reformats. All CT scans at [facility] use at least one of these dose opti mization techniques: automated exposure control; mA and/or kV adjustment per patient size (includes t argeted exams where dose is matched to clinical indication); or iterative reconstruction. CONTRAST: Omnipaque 300; 95 mL IV. DLP: 2047.85 mGy-cm. COMPARISON: 04/12/[address]: Stable nodule along the LEFT inferior major fissure measures 8 mm. This nodule has been present since at least 2018. No new pulmonary nodules or pneumonia. Mild pleural thickening with focal calcified p laque in anterior RIGHT thorax. Normal-sized thoracic aorta. Pulmonary artery size is equal to the ao rta. No mediastinal or hilar adenopathy. Very mild LEFT heart enlargement. No hiatal hernia. No significant lymphadenopathy. Abdomen CT: Normal size liver and spleen. Gallbladder is contracted without adjacent inflammation. No pancreatic mass or inflammation. Moderate atherosclerosis of aorta. There is a saccular aneurysm in the level of the renal arteries with a maximum diameter of 3.9 cm. Very similar to the prior examination. Appeara nce of this aneurysm is similar over multiple prior years. Mild ectasia of the common iliac arteries. Several mesenteric lymph nodes are clustered within the RIGHT abdomen. The largest lymph node is ovoi d measuring 3.5 x 1.8 cm which is very similar to the prior examination. There are additional smaller adjacent lymph nodes within the mesentery. Celiac axis lymph node millimeters is stable. No obvious progression of adenopathy. Gastrointestinal tract: Visualized GI tract is negative for obstruction or inflammation. Osseous structures: Straightening of the normal thoracic kyphosis. Biconcave fracture involving L2. S chmorl's node at L3. Variable marrow signal within L4 and L5. These changes are stable since at least 11/12/2018. CT/CT chest abdomen w con* IMPRESSION: 1. No new or increasing size of pulmonary nodules or masses. No adenopathy. 2. Chronic emphysema. 3. 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 This abdominal aneurysm is been stable over multiple prior years. 4. Cluster of lymph nodes in the mesentery just to the RIGHT of midline with t he largest measuring 3.5 x 1.8 cm. No increase in size since the most recent ex amination of 04/12/2020. 5. Stable biconcave fracture L2.
[2020-10-26] MEDS: iohexol 300 mg/mL 50 mL Btl PO (13:59)
[2020-10-26] MEDS: iohexol 300 mg/mL 100 mL Btl IV (14:31)
== END 2020-10-26 13:38 | disposition home or self-care (01) ==
PROVIDERS: PCP Physician Assistant; Visit Provider Physician Assistant
DX: R59.0 Localized enlarged lymph nodes (principal); J43.9 Emphysema, unspecified; I71.4 Abdominal aortic aneurysm, without rupture; S32.028A Other fracture of second lumbar vertebra, initial encounter for closed fracture; X58.XXXA Exposure to other specified factors, initial encounter
CPT/HCPCS: 71260; 74160; Q9967

== ENCOUNTER 2020-10-27 08:38 | Outpatient (CLI) | payer MEDICARE, OTHER, SELFPAY ==
--- NOTE | 2020-10-27 08:47 | XR_ITS ---
WS: [id number] DEXA (DUAL ENERGY X-RAY ABSORPTIOMETRY) Bone mineral density was performed using a [employer] machine. HISTORY: SENIOR CARE USE OF SYSTEMIC STEROIDS COMPARISON: 12/03/2018 Lumbar spine BMD (L1-L4): 1.437 g/cm2 T score: 1.8 Z score: 2.1 Left forearm BMD: 0.924 g/cm2. T score: -0.7 Z score: 0.2 Compared to the prior study from 12/03/2018. Lumbar spine bone mineral density has increased by 2.9%. Bilateral hips bone mineral density has decreased by 3.1%. XR/XR DEXA axial skeleton* [id number] IMPRESSION: Normal bone mineral density. Significant decrease in bone mineral density withi n the LEFT forearm as compared to the prior study. Bone mineral density within the lumbar spine has increased.
== END 2020-10-27 08:39 | disposition home or self-care (01) ==
LOC: RADWPI 08:41
PROVIDERS: PCP Physician Assistant; Visit Provider Physician Assistant
DX: Z79.899 Other long term (current) drug therapy (principal); Z79.52 Long term (current) use of systemic steroids
CPT/HCPCS: 77080

== ENCOUNTER 2020-12-21 22:43 | Day surgery (SDC) | payer MEDICARE, OTHER, SELFPAY ==
[2020-12-21 22:50] VITALS: BP 128/72; PULSE 71; RESP 16; TEMP 36.6; O2SAT 96; BMI 26.4
--- NOTE | 2020-12-21 23:05 | ED_ITS ---
HPI - General Adult General: Chief complaint: Fall Stated complaint: LEFT SHOULDER PAIN POST FALL Time Seen by Provider: 12/21/20 22:45 History of Present Illness: HPI narrative: Patient is a 75-year-old male with history of bilateral prosthetic hips presenting to the emergency room after an episode of mechanical fall w/ complaints of L hip and L shoulder pain x 1 hr. Patient states that he was walking at home when he slipped and fell onto his left side. Denies any head injury, LOC, any use of anticoagulation. Patient complains of left-sided shoulder and left hip pain. Patient says that he has been unable to ambulate since the fall. Patient called EMS and was brought to the emergency room for evaluation. Patient reports that he is unable to range his left shoulder and L hip. He denies any other injuries today. Onset:1 hr ago Duration:1 hr Location:home Severity:moderate Review of Systems Narrative: Constitutional: No fever, no chills. HEENT: No vision changes CV: No chest pain, no palpitations PULM: no cough, no dyspnea. GI: No abdominal pain, no N/V/D. : No dysuria MSKEL: +L hip and +L shoulder pain SKIN: No new rashes, no lesions. NEURO: No headache, no focal weakness. 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, of the knee Diabetes High cholesterol Hypertension Surgical History H/O arthroscopic knee surgery Status post resection of medial plica and lateral meniscal tear History of total replacement of both hip joints Hx of arthroscopy of right knee Hx of shoulder surgery Family History Other Diabetes Lung cancer Social History Smoking and tobacco status: never smoked Alcohol intake: never Physical Exam Narrative: EXAM NARRATIVE: Head: Atraumatic Eyes: PERRL, conjunctiva without injection ENT: Mucous membrane moist NECK: Supple, ROM intact LUNGS: LCTAB, no crackles/rhonchi CV: RRR ABDOMEN: Soft, nontender in all quadrants EXTREMITY: Inability to range the left shoulder due to pain, no gross dislocation or deformity, ROM of the hip also limited by pain, no obvious signs of malrotation, displacement, or shortening of the hip. Patient over the median/radial/ulnar distribution of the left upper extremity intact. Patient is able to perform okay/thumbs up/scissor/fist sign with the left hand, 2+ radial pulses in the left hand, 2+DP/PT pulses in the LLE, cap refill in the LLE intact, L ankle/knee flexions and extensions 5/5 SKIN: No rash or erythema NEURO: Awake and alert, no focal motor deficits PSYCH: Normal mood and affect Procedures Procedural Sedation Indication: fracture/dislocation reduction ASA Class: II Time of Last PO Intake: 18:00 Preparation: library monitor applied Ketamine: IV Ketamine dose (mg): 130 IV Propofol dose (mg): 60 Patient Tolerated Procedure: well Complications: Respiratory Depression-Repositioning Required Interventions: oxygen applied and assist by BVM Course Vital Signs: Vital signs: Vital Signs Temperature 97.9 F 12/21/20 22:50 Pulse Rate 83 12/22/20 02:25 Respiratory Rate 16 12/22/20 02:25 Blood Pressure 127/75 12/22/20 02:25 Pulse Oximetry 98 12/22/20 02:25 MDM - General Adult MDM Narrative: Medical decision making narrative: 75-year-old male status post mechanical fall presenting to the emergency room with complaints of hip and left shoulder pain. X-rays consistent with L proximal humerus fracture and left prosthetic hip dislocation. Was discussed with Dr. Corona with recommendation for bedside reduction and sling for the left shoulder. Please refer to procedural sedation and hip reduction notes. However after 40 minutes of multiple attempts at hip reduction, we were unable to reduce the hip usccessfuly. Case was then discussed with Dr. Corona with plans for OR in the morning. Disposition: Admission for floor for elective OR in the AM. Discharge Plan Discharge Patient Disposition: Admitted As Inpatient Admit Provider: Suzette Wu Clinical Impression: Acute hip pain, Acute shoulder pain, Dislocation, hip, Proximal humeral fracture Condition: Stable Coding Level of Care Code ED Efficiency Engineer for Harris Terrell
--- NOTE | 2020-12-21 23:12 | XRR_ITS ---
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 Pain in left hip; Prior surgery; Surgery type: Bilateral hips TECHNIQUE: Imaging protocol: XR Left hip. Views: 2 or 3 views hip with pelvis when performed. COMPARISON: CT chest abd pel w con* 04/12/2020 11:06 AM FINDINGS: Bones/joints: Anterior dislocation of the left hip arthroplasty. Negative for acute periprosthetic fracture. Right hip arthroplasty alignment is unremarkable. Diffuse osseous demineralization. Soft tissues: Unremarkable. Intraperitoneal space: Numerous surgical clips within the pelvis. XR/XR hip LT 2-3V wo/w pel* [id number] IMPRESSION: Anterior left hip arthroplasty dislocation injury.
--- NOTE | 2020-12-21 23:12 | XRR_ITS ---
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 Views: 2 or more views. COMPARISON: [place] [id number] 12/21/2020 11:00 PM FINDINGS: Bones/joints: Comminuted fracture pattern in the proximal humeral neck. Significant displacement. Humeral head aligned with glenoid. Acromioclavicular alignment is unremarkable. Moderate severity joint space osteoarthritis. Surgical anchor within the proximal left humerus may represent prior rotator cuff repair. Soft tissues: Normal. XR/XR shoulder LT min 2V* [id number] IMPRESSION: Acute displaced left proximal humeral neck fracture.
--- NOTE | 2020-12-21 23:12 | XRR_ITS ---
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 Pain in left shoulder; Prior surgery; Surgery type: Rotator cuff surgery TECHNIQUE: Imaging protocol: XR Left humerus. Views: 2 or more views. COMPARISON: CT chest abdomen w con* 10/26/2020 2:27 PM FINDINGS: Bones/joints: Comminuted significantly displaced fracture lucencies in the proximal humeral neck. Moderate severity osteoarthritis of the joint spaces. Humeral head aligned with glenoid. Surgical anchor in the proximal humerus. Soft tissues: Unremarkable periarticular soft tissues. XR/[place] [id number] IMPRESSION: Acute proximal humeral neck fracture.
[2020-12-21] MEDS: fentaNYL 50 mcg/mL INJ 2mL IVP (23:45)
[2020-12-21 23:46] VITALS: BP 127/68; PULSE 80; RESP 18; O2SAT 96
[2020-12-22] VITALS (23 sets, daily range): BP systolic 114–181; BP diastolic 68–103; PULSE 74–160; RESP 14–22; TEMP 36.4–36.9; O2SAT 3–100
--- NOTE | 2020-12-22 | XR_ITS ---
WS: [id number] Left hip, C-arm fluoroscopy view, 12/22/2020 Clinical Data: DAVID PICS Comparison: Left hip, 12/22/2020. Findings: The left femoral head portion of the arthroplasty has been relocated into the acetabulum. XR/XR hip LT 2-3V wo/w pel* [id number] Impression: Relocation of left femoral head portion of the prosthesis into the acetabulum.
--- NOTE | 2020-12-22 | SCC_ITS ---
Procedure Done: Closed reduction left prosthetic hip dislocation 29.2 seconds of fluoroscopic guidance, for a cumulative dose of 11.25 mGy, was provided to Dr. Wu by the radiology department. C-arm images of the LEFT hip were saved for the patient's permanent record. GLORY
[2020-12-22] MEDS: propofol 10 mg/mL SDV 20 mL 40 MG IVP ×2 (00:40→01:00)
--- NOTE | 2020-12-22 01:19 | XRR_ITS ---
PROCEDURE INFORMATION: Exam: XR Left Hip Exam date and time: 12/22/2020 1:19 AM Age: 75 years old Clinical indication: Injury or trauma; Fall; Blunt trauma (contusions or hematomas); Left; Hip; Prior surgery; Surgery type: Thr; Patient HX: S/P attempted reduction. TECHNIQUE: Imaging protocol: XR Left hip. Views: 1 view hip with pelvis when performed. COMPARISON: CR (PELVIS, ) 12/21/2020 11:11 PM FINDINGS: Bones/joints: Persistent dislocation of the left hip arthroplasty. Negative for acute periprosthetic fracture. Soft tissues: Unremarkable. Intraperitoneal space: Surgical clips in the pelvis. XR/XR hip LT 1V wo/w pel [id number] IMPRESSION: Left hip arthroplasty remains dislocated.
[2020-12-22 03:36] LABS: SARS Covid-2 Antigen Negative (Negative)
--- NOTE | 2020-12-22 03:51 | PM.CONSULT ---
Providers/Reason For Consult Consulting Physician/Specialty*: Naomi Villalta MD/ Hospitalist Reason for Consult*: medical comorbidity management Attending Physician: Suzette Wu MD Primary Care Provider: Amirah Mckeon History of Present Illness History of Present Illness Donta Gomes is a 75 year old male With a past medical history of ulcerative colitis, not on any biologicals or steroids, hypertension, hyperlipidemia, type 2 diabetes, however not on any medication, reports this is well controlled, BPH, vitamin B12 deficiency presenting to the hospital today with a mechanical fall resulting in a humerus fracture and displacement at the hip joint. Patient is planned for OR tomorrow with Dr. Wu. Medicine service is consulted for management of medical comorbidities. Patient denies any complaints of fever, chest pain, dyspnea, palpitations, syncope, abdominal pain, nausea, vomiting, diarrhea. Denies any recent changes in exercise capacity. He is followed from oncology for history of retroperitoneal lymphadenopathy of uncertain significance, improving over several years, low suspicion for malignancy, followed annually. No past history of CAD or other cardiac history. Patient is alert awake oriented at the time of exam. He is afebrile, blood pressure is 127/85, heart rate 78, saturating 93% on room air. Review of Systems General: Reports: 10 or more systems reviewed and unremarkable except in HPI and below Const: Denies: fever(s), chills or body aches Eyes: Denies: change in vision, blurry vision or photophobia ENMT: Reports: hoarseness; Denies: throat pain, enlarged tonsils, odynophagia or nasal congestion Card: Denies: chest pain, palpitations, irregular heart rhythm, edema, swelling of feet/ankles, lightheadedness, pre-syncope, dyspnea on exertion or orthopnea Resp: Denies: dyspnea, productive cough, non-productive cough, wheezing, stridor, pain on inspiration, change in phlegm color, hemoptysis or chest congestion GI: Denies: abdominal pain, nausea, vomiting, hematemesis, coffee ground emesis, dysphagia, heartburn, diarrhea, constipation, GI cramping, change in stool character, hematochezia or melena : Denies: flank pain, dysuria, urinary frequency, urinary urgency, urinary hesitancy or hematuria Musc: Denies: neck pain, back pain, extremity pain, joint swelling, joint warmth or deformity Neuro: Denies: headache(s), numbness in extremities, weakness in extremities, sensory changes, difficulty walking, frequent falls, dizziness, vertigo, behavioral changes, Slurred speech present or seizure-like activity Psych: Denies: anxiety, depression, suicidal ideation or homicidal ideation Endo: Denies: polyuria, polydipsia, tired all the time, cold intolerance or hot flashes Roney/Lymph: Denies: easy bruising or easy bleeding Meds/Allergies Home Medications and Allergies Home Medications Medication Instructions Recorded Confirmed Last Taken Type aspirin 81 mg tablet,delayed 81 mg PO ONCE 05/20/19 09/27/20 06/02/19 History release atorvastatin 40 mg tablet 40 mg PO ONCE 05/20/19 09/27/20 1 Day Ago History ~06/03/19 calcium carbonate 500 mg calcium 500 mg PO ONCE tab 05/20/19 09/27/20 1 Day Ago History (1,250 mg) tablet ~06/03/19 cholecalciferol (vitamin D3) 25 1,000 unit PO ONCE 05/20/19 09/27/20 1 Day Ago History mcg (1,000 unit) capsule ~06/03/19 cinnamon bark 500 mg capsule 2,000 mg PO ONCE cap 05/20/19 09/27/20 1 Day Ago History ~06/03/19 cyanocobalamin (vitamin B-12) 1,000 mcg PO ONCE 05/20/19 09/27/20 1 Day Ago History 1,000 mcg capsule ~06/03/19 diphenoxylate-atropine 2.5 2 tab PO TID 05/20/19 09/27/20 06/04/19 09:00 History mg-0.025 mg tablet fluticasone propionate 50 1 spray INTRANASAL BID 05/20/19 09/27/20 1 Day Ago History mcg/actuation nasal ~06/03/19 spray,suspension multivitamin,lk-vmco-omzrnryd 1 tab PO ONCE 05/20/19 09/27/20 1 Day Ago History ~06/03/19 hydrocodone-acetaminophen 1 tab PO Q4H #30 tab 06/04/19 09/27/20 Unknown Rx nerve shield 1,000 mg PO 12/15/19 09/27/20 Unknown History zinc 50 mg tablet 50 mg PO DAILY 12/15/19 09/27/20 Unknown History Allergies Allergy/AdvReac Type Severity Reaction Status Date / Time lisinopril Allergy ALGY-Anaphy Verified 12/21/20 23:05 laxis metformin Allergy Unknown Verified 12/21/20 23:05 morphine Allergy ADR-Halluci Verified 12/21/20 23:05 nating PFSH Acute PFSH: Medical History 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, of the knee Diabetes High cholesterol Hypertension Surgical History H/O arthroscopic knee surgery Status post resection of medial plica and lateral meniscal tear History of total replacement of both hip joints Hx of arthroscopy of right knee Hx of shoulder surgery Family History Other Diabetes Lung cancer Social History Smoking and tobacco status: never smoked Alcohol intake: never Vitals/I&O/Wt Last Vital Signs Temp 97.9 F 12/21/20 22:50 Pulse 78 12/22/20 03:15 Resp 17 12/22/20 03:15 BP 127/75 12/22/20 03:15 Pulse Ox 92 12/22/20 03:15 Weight last 48 hrs Weight 86.183 kg A&P Assessment and plan (1) Dislocation, hip: Status: Acute (2) Proximal humeral fracture: Status: Acute Additional A&P Information Patient presenting today with mechanical fall resulting in hip dislocation and proximal humeral fracture. Surgical plan per orthopedics. Has a prior history of hypertension, however no antihypertensives on his home meds at this present time. Blood pressure is currently well controlled. Reports also a history of diabetes, controlled with lifestyle modification. Can check CBC, CMP including glucose. History of ulcerative colitis, not currently active, takes loperamide occasionally at home which can be continued in case of diarrhea. History of retroperitoneal lymphadenopathy followed by oncology, low suspicion for malignancy, only on observation, not currently an acute issue. No prior history of CAD or other cardiac abnormalities. Patient does not appear to be at higher risk for adverse cardiac events periprocedure. As such no contraindication to proceed with surgery from a medicine standpoint. We will follow peripherally in case of any acute medical issues should they arise during the hospitalization. Thank you for this consult Coding Level of Care Code Acute Sample Patternmaker for Harris Terrell Diagnoses Dislocation, hip S73.006A Proximal humeral fracture S42.209A
[2020-12-22 03:53] LABS: INR 0.93 (0.8-1.2)
[2020-12-22 03:57] LABS: Basophils % 0.4 %; Eosinophils % 0.3 %; Hematocrit 36.4 % (42.0-52.0); Hemoglobin 11.9 g/dL (11.7-16.6); Lymphocytes # 0.7 10^3/uL (0.8-4.8); Lymphocytes % 6.6 %; Mean Corpuscular HGB Conc 32.7 g/dL (30.0-36.0); Mean Corpuscular Volume 97.8 fL (80-94); Monocytes # 0.7 10^3/uL (0.2-0.9); Monocytes % 7.1 %; Neutrophils # 8.82 10^3/uL (1.8-7.7); Neutrophils % 85.3 %; Nucleated Red Blood Cells % 0 %; Platelet Count 177 10^3/cmm (130-400); Red Blood Count 3.72 10^6/uL (4.1-5.3); White Blood Count 10.3 10^3/uL (4.0-10.0)
[2020-12-22 04:05] LABS: Alanine Aminotransferase 15 U/L (0-41); Albumin Level 3.3 g/dL (3.5-5.2); Alkaline Phosphatase 84 IU/L (40-130); Anion Gap 17.4 (5-19); Aspartate Amino Transferase 16 U/L (0-40); Blood Urea Nitrogen 12 mg/dL (8-23); Calcium 8.3 mg/dL (8.5-10.5); Carbon Dioxide 20 mmol/L (22-29); Chloride 105 mmol/L (98-107); Globulin 3.6 g/dL (1.3-4.6); Glucose 127 mg/dL (65-115); Osmolality Calculated 289 mOsm/kg (285-295); Potassium 3.4 mmol/L (3.5-5.1); Sodium 139 mmol/L (136-145); Total Bilirubin 0.2 mg/dL (0.15-1.2); Total Protein 6.9 g/dL (6.6-8.7)
[2020-12-22] MEDS: sodium chloride 0.9% 1,000 ML 75 ML IV (04:52)
[2020-12-22] MEDS: HYDROcodone-acetaminophen 7.5-325 mg Tablet 1 TAB PO ×3 (04:52→15:39)
--- NOTE | 2020-12-22 10:24 | W.PM.OPSFHP ---
Same Day Surgery H&P Indication for Procedure/HPI DATE OF PROCEDURE: December 22, 2020 CHIEF COMPLAINT/INDICATIONFOR SURGICAL PROCEDURE: Dislocation left total hip arthroplasty, with associated left proximal humeral fracture through the surgical neck PREOP DIAGNOSIS: Left prosthetic hip dislocation PLANNED PROCEDRUE: Operation Date: 12/22/20 12:10 Proposed Procedures p Closed, possible open reduction, Hip(Left) - Suzette Wu MD This 75-year-old gentleman was in his usual state of health which includes a history of ulcerative colitis hypertension, hyperlipidemia, type 2 diabetes as well as a history of bilateral total hip arthroplasty. He describes a mechanical fall onto his left side when he tripped in his home. He lives there with his . He denied any other reason for his fall. Upon admission to the emergency department, the patient was found to have a humeral neck fracture as well as a prosthetic hip dislocation both on the left side. Medicine was consulted to optimize for surgery. The patient was deemed to be safe for general anesthetic and surgical intervention. He was scheduled for outpatient hip reduction. Medications/Allergies* Home Medications Medication Instructions Recorded Confirmed Type aspirin 81 mg tablet,delayed 81 mg PO DAILY 05/20/19 12/22/20 History release atorvastatin 40 mg tablet 40 mg PO DAILY 05/20/19 12/22/20 History calcium carbonate 500 mg calcium 500 mg PO DAILY tab 05/20/19 12/22/20 History (1,250 mg) tablet cholecalciferol (vitamin D3) 25 1,000 unit PO DAILY 05/20/19 12/22/20 History mcg (1,000 unit) capsule cinnamon bark 500 mg capsule 2,000 mg PO DAILY cap 05/20/19 12/22/20 History diphenoxylate-atropine 2.5 2 tab PO TID 05/20/19 12/22/20 History mg-0.025 mg tablet fluticasone propionate 50 1 spray INTRANASAL BID 05/20/19 12/22/20 History mcg/actuation nasal spray,suspension nerve shield 1,000 mg PO DAILY 12/15/19 12/22/20 History zinc 50 mg tablet 50 mg PO DAILY 12/15/19 12/22/20 History amlodipine [Norvasc] 5 mg PO DAILY 12/22/20 12/22/20 History cyanocobalamin (vitamin B-12) 1,000 mcg IM Q42D 12/22/20 12/22/20 History multivitamin 1 tab PO DAILY 12/22/20 12/22/20 History Allergies/Adverse Reactions Allergy/AdvReac Type Severity Reaction Status Date / Time lisinopril Allergy ALGY-Anaphy Verified 12/21/20 23:05 laxis metformin Allergy Unknown Verified 12/21/20 23:05 morphine Allergy ADR-Halluci Verified 12/21/20 23:05 nating Current Medications: Generic Name Dose Route Start Last Admin Trade Name Joselin PRN Reason Stop Dose Admin Hydrocodone Bitart/Acetaminophen 1 tab 12/22/20 04:00 12/22/20 09:19 Hydrocodone-Acetaminophen 7.5-325 Mg Tablet PO 1 tab Q4H SUNSHINE Administration Atorvastatin Calcium 40 mg 12/22/20 09:00 12/22/20 09:19 Atorvastatin 40 Mg Tablet PO Not Given DAILY SUNSHINE Sodium Chloride 1,000 mls @ 75 mls/hr 12/22/20 03:45 12/22/20 04:52 Sodium Chloride 0.9% IV 75 mls/hr .[id number] SUNSHINE Administration Pertinent History/Comorbid Conditions* Medical History (Updated 12/22/20 @ 03:06 by Shirley Pepe MD) 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, of the knee Diabetes High cholesterol Hypertension Surgical History (Updated 12/15/19 @ 09:45 by Tirso Love DPM) H/O arthroscopic knee surgery Status post resection of medial plica and lateral meniscal tear History of total replacement of both hip joints Hx of arthroscopy of right knee Hx of shoulder surgery Family History (Updated 06/03/19 @ 15:42 by Chitra Levy) Diabetes Lung cancer Social History Smoking and tobacco status: never smoked Alcohol intake: never Pertinent Exam Findings alert, oriented x 3, clear to auscultation bilaterally, regular rate & rhythm, operative site marked and procedure specific exam findings (Neuropathy left lower extremity, intact as is normal for patient) Related Problem List Diagnoses (1) Dislocation of internal left hip prosthesis, initial encounter: (2) Closed fracture of neck of left humerus: Qualifiers: Encounter type: initial encounter Qualified Code(s): S42.212A - Unspecified displaced fracture of surgical neck of left humerus, initial encounter for closed fracture Recommendations Surgery/Procedure today Coding Level of Care Code Acute Genetic Engineer for g Fwd Diagnoses Dislocation of internal left hip prosthesis, initial encounter T84.021A Closed fracture of neck of left humerus S42.212A Encounter type: initial encounter
--- NOTE | 2020-12-22 11:20 | PC.NURSE ---
Taken to pre op by JONI Wallace
[2020-12-22] MEDS: acetaminophen 1,000 MG/100 ML PIGGYBACK 400 MG IV (12:19)
[2020-12-22] MEDS: CELEcoxib 200 mg Capsule 400 MG PO (12:19)
--- NOTE | 2020-12-22 12:26 | ANES.PREANE2 ---
Pre-Anesthetic Assessment Pre-Anesthetic Assessment: Height/Weight: Height 1.8 m Weight 86.183 kg Temp Pulse Resp BP Pulse Ox 97.8 F 92 18 164/85 94 12/22/20 12:00 12/22/20 12:00 12/22/20 12:00 12/22/20 12:00 12/22/20 12:00 Preop Diagnosis: Left prosthetic hip dislocation Proposed Procedure: Operation Date: 12/22/20 12:10 Proposed Procedures p Closed Reduction Hip(Left) - Suzette Wu MD Was Beta Ke taken within 24 hours: N/A Was Clonidine taken within 24 hours: N/A Social: Social History: No alcohol and No tobacco Exam: Pre-Anes Outpt Exam: alert, oriented x 3, clear to auscultation bilaterally and regular rate & rhythm Airway: Submandibular: WNL Cervical ROM: WNL MP: 2 Dentition: Chipped CV/HEM: CV/HEM: HTN Metabolic: Metabolic: DM and Hyperlipidemia Musc/skel: Musc/skel: OA/DJD Anesthetic Plan: ASA status: 3 Anesthesia: General Risk of > 500 ml blood loss (7ml/kg in children): No Meds/Allergies Current Medications: Current Medications Generic Name Dose Route Start Last Admin Trade Name Freq PRN Reason Stop Dose Admin Hydrocodone Bitart /Acetaminophen 1 tab 12/22/20 04:00 12/22/20 09:19 Hydrocodone-Acet aminophen 7.5-325 Mg Tablet PO 1 tab Q4H SUNSHINE Administration Atorvastatin Calci um 40 mg 12/22/20 09:00 12/22/20 09:19 Atorvastatin 40 Mg Tablet PO Not Given DAILY SUNSHINE Sodium Chloride 1,000 mls @ 75 ml s/hr 12/22/20 03:45 12/22/20 04:52 Sodium Chloride 0.9% IV 75 mls/hr .[id number] SUNSHINE Administration Acetaminophen 1,000 mg in 100 m ls @ 400 mls/hr 12/22/20 12:15 12/22/20 12:19 Acetaminophen IV 12/22/20 12:29 400 mls/hr ONCE ONE Administration PFSH Anesthesia PFSH: Medical History (Updated 12/22/20 @ 10:30 by Suzette Wu MD) 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, of the knee Diabetes High cholesterol Hypertension Surgical History H/O arthroscopic knee surgery Status post resection of medial plica and lateral meniscal tear History of total replacement of both hip joints Hx of arthroscopy of right knee Hx of shoulder surgery Family History Other Diabetes Lung cancer Social History Smoking and tobacco status: never smoked Alcohol intake: never Data Anesthesia CBC & Chem 7: 12/22/20 03:22 12/22/20 03:22 Other Labs: Laboratory Results - last 48 hr 12/22/20 12/22/20 12/22/20 03:00 03:22 03:22 WBC RBC Hgb Hct MCV MCH MCHC RDW Plt Count MPV Neut % (Auto) Lymph % (Auto) [place] % (Auto) Eos % (Auto) Baso % (Auto) Neut # (Auto) Lymph # (Auto) [place] # (Auto) Eos # (Auto) Baso # (Auto) Nucleated RBC % (auto) Nucleated RBCs # PT 12.80 INR 0.93 APTT Sodium Potassium Chloride Carbon Dioxide Anion Gap BUN Creatinine GFR Calculation Glucose Calculated Osmolality Calcium Total Bilirubin AST ALT Alkaline Phosphatase Total Protein Albumin Globulin SARS-CoV-2 Ag (Rapid) Negative Blood Type A Positive Rho(D) Type Positive / 4+ Antibody Screen Negative 12/22/20 12/22/20 12/22/20 03:22 03:22 03:22 WBC 10.3 H RBC 3.72 L Hgb 11.9 Hct 36.4 L MCV 97.8 H MCH 32.0 MCHC 32.7 RDW 14.0 Plt Count 177 MPV 9.0 Neut % (Auto) 85.3 Lymph % (Auto) 6.6 [place] % (Auto) 7.1 Eos % (Auto) 0.3 Baso % (Auto) 0.4 Neut # (Auto) 8.82 H Lymph # (Auto) 0.7 L [place] # (Auto) 0.7 Eos # (Auto) 0.0 Baso # (Auto) 0.0 Nucleated RBC % (auto) 0 Nucleated RBCs # 0.0 PT INR APTT 27.0 Sodium 139 Potassium 3.4 L Chloride 105 Carbon Dioxide 20 L Anion Gap 17.4 BUN 12 Creatinine 0.9 GFR Calculation Not Reportable Glucose 127 H Calculated Osmolality 289 Calcium 8.3 L Total Bilirubin 0.2 AST 16 ALT 15 Alkaline Phosphatase 84 Total Protein 6.9 Albumin 3.3 L Globulin 3.6 SARS-CoV-2 Ag (Rapid) Blood Type Rho(D) Type Antibody Screen Cardiac Studies: No Data to Display
[2020-12-22] MEDS: clindamycin 600 MG/50 ML PREMIX 100 MG IV (12:45)
--- NOTE | 2020-12-22 13:30 | PM.OP ---
Operative Report Date of procedure: December 22, 2020 Pre-op Diagnosis: Left prosthetic hip dislocation Post-op diagnosis: same Procedure Done: Closed reduction left prosthetic hip dislocation Implants: None Specimens removed/disposition: None Pathology: none sent Surgeon: Suzette Wu Anesthesia: General (Intubated, ASA 3) Estimated blood loss (mL): 0 IV fluids (mL): 200 Urine output (mL): 0 Complications: None Condition: stable Disposition: PACU (Then to floor for subsequent discharge to home) Brief History: This 75-year-old gentleman was in his usual state of health when he tripped in his home and fell onto his left side. This fall resulted in a proximal humerus fracture through the surgical neck as well as a dislocation of the patient's prosthetic hip replacement. The patient denies any other previous issues with this hip and has not had prior dislocation. After discussion, we elected to take him to the operating room as it was unable to be reduced in the emergency department by the emergency room physician. Risks and complications were discussed, and consents were signed. Procedure: Patient is brought to the operating theater. After undergoing adequate general anesthesia with intubation, ASA 3, the patient was transferred to the [place] table, positioned on the table and fluoroscopic guidance obtained throughout the surgical procedure. Prior to the commencement of the surgical procedure, a surgical pause was performed. At the time of the surgical pause, we confirmed the site and side of surgery as well as preoperative surgical markings and appropriate and timely administration of IV antibiotics, clindamycin 600 mg. Fluoroscopy was used throughout the surgical procedure during the closed reduction. Traction was placed and manipulation was accomplished. Fluoroscopy was used to confirm that the dislocation was reduced. We visualized AP and frog-lateral. There were no specimens obtained. After reduction, the patient was transferred back to his bed and returned to the recovery room. The patient will be discharged to the floor for pending discharge to home. He will follow up with me as scheduled. In the recovery room, x-rays were obtained of the shoulder fracture, and it was an improved position from preop. He was in an immobilizer. There were no specimens obtained. Associated Problem List Diagnoses (1) Dislocation of internal left hip prosthesis, initial encounter: (2) Closed fracture of neck of left humerus: Qualifiers: Encounter type: initial encounter Qualified Code(s): S42.212A - Unspecified displaced fracture of surgical neck of left humerus, initial encounter for closed fracture
--- NOTE | 2020-12-22 13:41 | XR_ITS ---
WS: [id number] Left shoulder, 3 views, 12/22/2020 Clinical Data: Fracture Comparison: Left shoulder, 12/21/2020 Findings: The comminuted fracture of the left humeral head with impaction of the left humeral shaft remains the same. There is an orthopedic anchor in the humeral head. The AC joint shows mild osteoarthritis. The adjacent left ribs and left scapular are unremarkable. XR/XR shoulder LT min 2V* [id number] Impression: No change in comminuted fracture of left humeral head with impaction of the lef t humeral shaft.
--- NOTE | 2020-12-22 14:28 | PM.MISC ---
Miscellaneous Note Purpose of Documentation: Postop Note: Patient was admitted as outpatient in a bed. He came to surgery had his hip reduced and returns to the floor for discharge to home from there. There were no complications and the patient was more comfortable in the recovery room.
--- NOTE | 2020-12-22 14:42 | ANE.PACU2 ---
Inpatient post-anesthesia follow up: Airway intact: Yes Vital signs: Temperature 98.5 F Pulse Rate [Left R adial] 71 Pulse Rate 77 Respiratory Rate 17 Blood Pressure [Ri ght Arm] 128/72 Blood Pressure 114/68 Pulse Oximetry 95 Oxygen Delivery Me thod Room Air Oxygen Flow Rate 3 Fraction of Inspir ed Oxygen Hydration adequate: Yes Nausea and vomiting: No Pain level: 2 Mental status: Baseline
[2020-12-22] MEDS: diphenoxylate/atropine Tablet 2 TAB PO (15:39)
[2020-12-22 15:47] LABS: Coronavirus Test Green County Not Detected
== END 2020-12-22 16:00 | disposition home or self-care (01) ==
LOC: ER 12-22 01:33 → MEDSURG 12-22 02:58 → ER 12-30 08:52 → OPS 12-30 09:59 → CSU 12-30 10:00
PROVIDERS: Student in an Organized Health Care Education/Training Program; Emergency Provider Emergency Medicine; PCP Physician Assistant; Visit Provider Specialist
PROC: (CPT 27266; principal; 2020-12-22 12:00)
DX: T84.021A Dislocation of internal left hip prosthesis, initial encounter (principal); S42.212A Unspecified displaced fracture of surgical neck of left humerus, initial encounter for closed fracture; W01.0XXA Fall on same level from slipping, tripping and stumbling without subsequent striking against object, initial encounter; I10 Essential (primary) hypertension; E11.9 Type 2 diabetes mellitus without complications; E78.5 Hyperlipidemia, unspecified; M19.90 Unspecified osteoarthritis, unspecified site; Z79.84 Long term (current) use of oral hypoglycemic drugs
CPT/HCPCS: 27266; 27250; 73030; 73060; 73501; 73502; 76000; 80053; 85025; 85610; 85730; 86850; 86900; 87426; 87635; 96365; 96375; 97165; J2704; J3010; J3490; J7030; L3670

== ENCOUNTER → 2021-01-11 09:12 | Outpatient (BNVA) | payer MEDICARE, OTHER, SELFPAY | PROVIDERS: PCP Physician Assistant; Visit Provider Specialist | DX: S42.212A Unspecified displaced fracture of surgical neck of left humerus, initial encounter for closed fracture (principal); T84.021A Dislocation of internal left hip prosthesis, initial encounter; X58.XXXA Exposure to other specified factors, initial encounter; Z96.642 Presence of left artificial hip joint; Y79.2 Prosthetic and other implants, materials and accessory orthopedic devices associated with adverse incidents | CPT/HCPCS: 73030; 73502 ==

== ENCOUNTER 2021-01-18 06:00 | Outpatient (RCR) | payer MEDICARE, OTHER, SELFPAY | END 2021-02-01 23:59 | disposition home or self-care (01) | LOC: SPT 06:00 | PROVIDERS: PCP Physician Assistant; Referring Provider Specialist; Visit Provider Specialist | DX: T84.021D Dislocation of internal left hip prosthesis, subsequent encounter (principal); X58.XXXD Exposure to other specified factors, subsequent encounter; Z96.641 Presence of right artificial hip joint; Y79.2 Prosthetic and other implants, materials and accessory orthopedic devices associated with adverse incidents | CPT/HCPCS: 97110; 97161 ==

== ENCOUNTER → 2021-02-22 09:42 | Outpatient (BNVA) | payer MEDICARE, OTHER, SELFPAY | PROVIDERS: PCP Physician Assistant; Visit Provider Specialist | DX: S42.212A Unspecified displaced fracture of surgical neck of left humerus, initial encounter for closed fracture (principal); Z98.890 Other specified postprocedural states; M11.269 Other chondrocalcinosis, unspecified knee; T84.021A Dislocation of internal left hip prosthesis, initial encounter; X58.XXXA Exposure to other specified factors, initial encounter | CPT/HCPCS: 73030; 73502 ==

== ENCOUNTER 2021-04-11 08:19 | Outpatient (CLI) | payer MEDICARE, OTHER, SELFPAY ==
--- NOTE | 2021-04-11 | CT_ITS ---
WS: [id number] CT CHEST, ABDOMEN AND PELVIS WITH CONTRAST HISTORY: LYMPH NODE ENLARGEMENT TECHNIQUE: Contiguous 5 mm axial imaging performed through the chest, abdomen and pelvis with IV cont rast, oral contrast has been provided. Coronal and sagittal reformats chest. Coronal and sagittal ref ormats through the abdomen and pelvis. All CT scans at [facility] use at least one of these d ose optimization techniques: automated exposure control; mA and/or kV adjustment per patient size (in cludes targeted exams where dose is matched to clinical indication); or iterative reconstruction. CONTRAST: Omnipaque 300; 95 mL IV. DLP: 2616.14 mGycm COMPARISON: 10/26/2020 and 04/12/[address]: No new or increasing size of pulmonary nodules. There are very small pulmonary nodules with mild dependent changes posteriorly in the lower lung donnelly. No pneumonia. Stable pleural thickening adjacent to the inferior LEFT major fissure. No pericardial or pleural effusions. Mild atheroscleros is aorta. Normal size pulmonary artery. Mild enlargement of the LEFT heart chambers. No enlarging or new mediastinal or hilar lymph nodes. Small hiatal hernia. Abdomen CT: Mild hepatic steatosis. Liver is mildly enlarged. Normal gallbladder. Normal size spleen. No adrenal mass. Kidneys are normal size bilaterally with no obstruction. Normal pancreas. Abdominal aorta: Moderate calcification is noted throughout the abdominal aorta. There is a lobulated dilatation of the infrarenal aorta with a maximum diameter 4.2 cm x 2.7 cm. Aneurysmal dilatation messina s been previously described. There are some concerning features of this aneurysm. Extending beyond th e calcification of the wall is enhancement within the thrombus. Discontinuity within the calcificatio n. There is additional calcification developing within the wall of the aneurysmal dilatation. This an eurysm is saccular in appearance and has slightly increased in size since 2019. Dilatation continues into the RIGHT iliac artery. Ectatic RIGHT common iliac artery measures up to 18 mm in diameter. Lymph nodes: New 0.8 cm retrocrural lymph node at the GE junction. Several small lymph nodes are note d near the celiac axis. Enlarging lymph nodes within the mesentery just to the RIGHT of midline. Ther e is a lymph node measuring 2.6 x 2.7 cm. There is an additional lymph node measuring 3.8 x 1.8 cm. L EFT periaortic lymph node measures 3.0 x 2.1 cm and has increased in size. There are additional small er subcentimeter lymph nodes in the retroperitoneum. Several small but increasing lymph nodes are not ed along the RIGHT common iliac artery. No GI tract obstruction. Mild fluid distention of the small bowel. Patient is status post colectomy. Anastomotic site at the rectum is difficult to visualize as there is extensive edema hardening artifa ct from patient's bilateral hip prostheses. Near the anastomosis within the pelvis there is enhanceme nt and hyperemia and luminal narrowing involving the distal segment of the small bowel prior to the a nastomosis. Proximal to this small bowel thickening is moderate fluid distention. Similar pattern was seen on prior studies. Pelvic CT: There is a large amount of artifact through the pelvis and the bilateral hip prostheses. T he anastomotic site is very difficult to visualize that is deep within the pelvis. Biconcave fracture at L2. Schmorl's nodes at L3 and L4. CT/CT chest abd pel w con* IMPRESSION: 1. Moderate progression in size and number of the mediastinal and retroperiton eal lymph nodes as described above. Additional retrocrural lymph node at the GE junction is new. 2. Mild fluid distention of the small bowel with a focal area of narrowing and hyperemia involving the distal small bowel just proximal to the anastomosis de ep within the pelvis. 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 3. Increase in size of the saccular abdominal aortic aneurysm. There is also m ild enhancement beyond the central calcification. 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 Due to its slight increase in size and concerning features of possible pseudoa neurysm consider follow-up with cardiovascular surgery for possible repair. 4. No suspicious pulmonary mass or nodule.
[2021-04-11 10:04] LABS: Blood Urea Nitrogen 19 mg/dL (8-23)
[2021-04-11] MEDS: iohexol 300 mg/mL 100 mL Btl IV (10:33)
[2021-04-11] MEDS: iohexol 300 mg/mL 50 mL Btl PO (10:33)
== END 2021-04-11 08:20 | disposition home or self-care (01) ==
PROVIDERS: Radiology Diagnostic Radiology; PCP Physician Assistant; Visit Provider Internal Medicine Medical Oncology
DX: R59.0 Localized enlarged lymph nodes (principal)
CPT/HCPCS: 71260; 74177; 82565; 84520; Q9967

== ENCOUNTER 2021-04-14 08:52 | Outpatient (CLI) | payer MEDICARE, OTHER, SELFPAY ==
--- NOTE | 2021-04-19 13:06 | ONC FU_ITS ---
Dr. Haq Patient Follow-Up Note Patient: Donta Gomes Unit #: [id number]: [id number] Dicatated By: Jason Haq M.D.Date of Visit:Apr 14, 2021 Onc Med Follow-up/Prog Note Chief Complaint: Lymphadenopathy. History of Present Illness: This is a 75 year-old man with retroperitoneal lymphadenopathy. He has a history of ulcerative colitis, initially diagnosed in 1991. He underwent total colectomy in 1994. He is currently not on any medication for it. He also has significant degenerative arthritis, for which he had undergone bilateral total hip arthroplasty. The procedure on the right was complicated by loosening of the femoral stem, requiring a revision procedure in August 2010. It was then further complicated by a periprosthetic right femur fracture which required bone grafting in March 2011. On 09/21/2018 he presented to the emergency room after he had fallen at home and injured his back. He apparently also sustained a head injury with loss of consciousness. His evaluation included a CT pulmonary angiogram, which showed no evidence for pulmonary embolus or other acute findings. There was evidence, though, of vangie hepatis and retroperitoneal lymphadenopathy, consisting of predominantly subcentimeter lymph nodes. He continued to have back pain, and the lumbar spine x-ray on 11/03/2018 showed evidence of a 25% anterior superior compression fracture at L2. Also noted were degenerative changes at L3-L4, L4-L5, and L5-S1. Further evaluation with CT abdomen/pelvis on 11/12/2018 showed lymphadenopathy around the celiac axis, retroperitoneum, and pancreatic head, with the largest soft tissue mass measuring 3.4 x 5.5 cm just inferior to the pancreatic head into the right of the midline. Numerous additional smaller lymph nodes were noted around the celiac axis, pancreas, and retroperitoneum. Also noted were right iliac lymph nodes, the largest measuring 1.5 cm. There was mild right-sided colonic wall thickening consistent with inflammatory or neoplastic change. There is age indeterminate compression fracture at L2. There were additional mixed lytic and sclerotic changes at L3 and L4. Head MRI showed no acute infarct, hemorrhage, or mass effect. A DEXA scan showed normal bone mineral density. On 12/19/[address] directed needle biopsy of the right retroperitoneal lymph node. The procedure was abandoned, as a safe window for the biopsy could not be identified. It was noted that the right retroperitoneal lymph node appeared stable from the November 2018 study, measuring 5.6 x 3.5 cm. I had seen him initially on 12/29/2018. He had limited activity due to his chronic right hip/femur issues, and he also reported having a long-standing problem with loose stools. He was otherwise not symptomatic. We discussed the fact that based on the size of the retroperitoneal lymph nodes, the CT findings were suspicious for a neoplastic process. However, as there has been no significant interval change between the November CT and the attempted needle biopsy procedure in December, he opted to just continue on close observation/expectant management. His medical illnesses, in addition to ulcerative colitis, include hypertension, hyperlipidemia, type II diabetes with peripheral neuropathy, chronic kidney disease, degenerative arthritis, benign prostatic hypertrophy, and macular degeneration. He also has vitamin B 12 deficiency. He has a history of smoking 1 pack of cigarettes daily, but only for 6 years. He quit smoking in 1972. He averages 1-2 alcoholic beverages 6 days a week. Interim History: Repeat CT abdomen/pelvis on 02/27/2019 showed stable retroperitoneal and mesenteric adenopathy since 11/12/2018. The largest lymph node on the right measured 5.4 x 3.6 cm. An abdominal aortic aneurysm appeared stable at 3.6 cm. In the absence of any evidence of disease progression, he continued on observation/expectant management. His CT scans of the chest, abdomen, and pelvis on 06/23/2019 showed no change in the right lower lobe pulmonary nodule measuring 4 mm. There is a new right middle lobe nodule measuring 4.1 mm. Also noted were several new ill-defined opacifications in the right middle lobe adjacent to the superior fissure, felt to be most likely inflammatory. There was mild perinephric stranding around each kidney, with no evidence of obstruction. The abdominal aortic aneurysm. Stable at 3.6 cm. Multiple lymph nodes at the mesenteric root continued to show slight decrease in size. A few retroperitoneal lymph nodes appeared stable. The largest node anterior to the IVC below the duodenum measured 5.0 x 3.1 cm with slight decrease in size. There was no new or increasing lymphadenopathy noted. CT abdomen/pelvis on 09/29/2019 showed slight improvement in the aortocaval lymph node measuring 4.5 x 2.6 cm. Small noncalcified pulmonary nodules appeared stable. There was no mediastinal or hilar adenopathy noted. A previously described nodular infiltrate in the right middle lobe had resolved. Shotty periaortic and retroperitoneal lymph nodes appeared stable as did prominent lymph nodes along the mesenteric root. The abdominal aortic aneurysm appeared stable measuring 3.6 x 3.[address] scans of the chest, abdomen, and pelvis on 04/12/2020 showed stable left lower lobe pulmonary nodule along the diaphragmatic surface. There was no mediastinal or hilar adenopathy noted. There was significant decrease in the largest mesenteric lymph node measuring 14 x 29 mm compared to 26 x 45 mm on the September 2019 study. There were additional small mesenteric and retroperitoneal lymph nodes without evidence of progression. There were no other findings of metastatic disease. A saccular aneurysm of the infrarenal aorta appeared stable at 3.7 cm. He continued expectant management. Repeat CT scans on 04/11/2021 showed no new or increasing size of pulmonary nodules. There was mild hepatic steatosis, the liver was noted to be mildly enlarged. Spleen was normal size. A new 0.8 cm retrocrural lymph node was noted at the GE junction. Several small nodes were noted near the celiac axis. Enlarging lymph nodes were noted within the mesentery just to the right of the midline, one measuring 2.6 x 2.7 cm and another measuring 3.8 x 1.8 cm. A left periaortic lymph node measured 3.0 x 2.1 cm, and it was noted to have increased in size. Additional smaller subcentimeter nodes were noted in the retroperitoneum and several small but increasing lymph nodes were noted along the right common iliac artery. Overall, there was felt to be moderate progression in size and number of mediastinal and retroperitoneal lymph nodes and an additional retrocrural lymph node at the GE junction was new. Also noted on that study was increased in size of the saccular abdominal aortic aneurysm measuring 4.2 x 2.7 cm. Dilatation was noted to continue into the right iliac artery. In addition, mild enhancement was noted beyond the central calcification, possibly representing pseudoaneurysm. He is seen for a followup visit. He has been feeling good generally. He has good energy and he has normal activity. ECOG score is 0. Appetite also is good. He has no fever or night sweats. He has not had sore mouth or throat. He does not complain of cough, and he has not been having shortness of breath or chest pain. He has no GI/ complaints other than loose stools, which is chronic, and occasional pain in the left lower quadrant area. He has joint pain, mainly in his wrists and hands, and also sometimes in the right elbow. He does not complain of headache or dizziness. He has some numbness/tingling in his feet. Medications: Amoxicillin 1 Tablet (of 500 mg) Oral PRN, Aspirin 1 Tablet (of 81 mg) Oral daily, Atorvastatin Calcium 0.5 Tablet (of 80 mg) Oral at bedtime, B-12 1 Tablet (of 1000 mcg) Capsule Oral daily, Calcium 1 Tablet (of 500 mg) Oral daily, Cinnamon Bark 1 Capsule (of 2000 mg) daily, Daily Vitamin 1 Tablet Oral daily, Flonase 1 spray(s) (of 50 mcg/act) Suspension Nasal at bedtime, Lomotil 2 Tablet (of 2.5-0.025 mg) Oral t.i.d. PRN, nerve shield 1 Tablet daily, Norvasc 0.5 Tablet (of 10 mg) Oral daily, Vitamin D3 1 Capsule (of 1000 Units) Oral daily, Zinc 1 Tablet (of 50 mg) Oral daily Allergies: BRUCE Inhibitors, Lisinopril, and Morphine Sulfate. Vital Signs: Performed on Apr 14, 2021 11:14 Height - 71.00 in Weight - 204.2 lbs (HIGH) BSA - 2.13 sq.m BMI - 28.48 Temperature - 97.9 F (LOW) Pulse - 85 /min Respiration - 18 /min BP - 138/77 mm(hg) O2 Sat - 96 % Pain - 0 Fatigue - 2 Physical Examination: Constitutional - He looks good generally, Eyes - Sclerae nonicteric. Conjunctivae clear, ENMT - No lesions noted in the oral cavity, Hematologic/Lymphatic - No cervical, clavicular, or axillary adenopathy, Respiratory - Lungs are clear with good air movement bilaterally, Cardiovascular - Heart rhythm is regular. There is no murmur, gallop, or rub noted, Abdomen - Soft. Liver and spleen are not enlarged. There is no abdominal mass or ascites noted and there is no inguinal adenopathy, Extremities - No edema, Neurologic - No focal neurologic deficits noted. Lab/Imaging: CBC shows hemoglobin 13.4 g, white blood cell count 6900, and platelet count 196,000. Comprehensive metabolic profile shows stable renal function with BUN 20 and creatinine 1.2 mg/dL. Bilirubin and liver enzymes are normal. The LDH is normal at 107 U/L. Problem List: 1. Patient with CT evidence of retroperitoneal lymphadenopathy, with the largest node just inferior to the pancreatic head into the right of the midline measuring 5.6 x 3.5 cm. By size criteria, it was suspected to be malignant. 2. He has known history of ulcerative colitis, for which he underwent total colectomy 1994. 3. Hypertension. 4. Hyperlipidemia. 5. Type II diabetes, diet controlled. 6. Chronic kidney disease. 7. Peripheral neuropathy. 8. Benign prostatic hypertrophy. 9. Degenerative arthritis/degenerative disease of the spine. 10. He had complications following previous right total hip arthroplasty resulting in periprosthetic fracture of the right femur and requiring bone grafting in March 2011. 11. He has B12 deficiency associated with the total colectomy. 12. He has macular degeneration of the right eye. Problems Addressed with this Encounter and Plan: 1. Patient with significant retroperitoneal lymphadenopathy, with the largest node just inferior to the pancreatic head into the right of the midline measuring 5.6 x 3.5 cm. By size criteria, it was suspected to be malignant. CT directed needle biopsy was attempted 12/19/2018, but the procedure was abandoned for safety reasons. There was, however, no interval increase in the adenopathy compared to the prior CT scan from 11/12/2018. As such, he opted to manage it expectantly. During follow-up, there was gradual decrease in the retroperitoneal lymphadenopathy, and he continued expectant management. His current CT does show some increase in mediastinal and retroperitoneal adenopathy and there was noted to be a new retrocrural lymph node measuring 0.8 cm. Given the increase in size, low-grade malignancy, in particular a low-grade lymphoma cannot be excluded. However, as the largest nodes are still decreased in size compared to the initial studies from 2019 and he is not overtly symptomatic, he will continue on expectant management. I will plan to see him again with repeat CT scans in 6 months. 2. There is also CT evidence of a saccular infrarenal abdominal aortic aneurysm. The current CT shows a slight increase in size compared to October 2020. As such, I will arrange for referral to Dr. Bryan. Signed By: Jason Haq M.D. <<Signature on File>>
== END 2021-04-14 08:53 | disposition home or self-care (01) ==
LOC: ONCMED 04-19 08:52
PROVIDERS: PCP Physician Assistant; Visit Provider Internal Medicine Medical Oncology
DX: R59.0 Localized enlarged lymph nodes (principal); I71.4 Abdominal aortic aneurysm, without rupture; I12.9 Hypertensive chronic kidney disease with stage 1 through stage 4 chronic kidney disease, or unspecified chronic kidney disease; E11.22 Type 2 diabetes mellitus with diabetic chronic kidney disease; N18.9 Chronic kidney disease, unspecified; E11.42 Type 2 diabetes mellitus with diabetic polyneuropathy; E53.8 Deficiency of other specified B group vitamins; E78.5 Hyperlipidemia, unspecified; N40.0 Benign prostatic hyperplasia without lower urinary tract symptoms; Z79.82 Long term (current) use of aspirin; Z87.891 Personal history of nicotine dependence
CPT/HCPCS: 99214

== ENCOUNTER 2021-07-04 08:21 | Outpatient (CLI) | payer MEDICARE, OTHER, SELFPAY ==
--- NOTE | 2021-07-04 09:00 | CT_ITS ---
WS: [id number] CTA ABDOMEN TECHNIQUE: Noncontrast plus contrast enhanced CTA of the abdominal aorta with coronal and sagittal re formatted images and additional MIP Images. CLINICAL INFORMATION: I71.4 - Abdominal aortic aneurysm, without rupture COMPARISON: CT 04/11/2021 and 10/26/2020 DLP: 1034.[address] scans at [facility] use at least one of these dose optimization techniques: automated e xposure control; mA and/or kV adjustment per patient size (includes targeted exams where dose is matc hed to clinical indication); or iterative reconstruction. FINDINGS: Again seen is the infrarenal abdominal aortic aneurysm with irregular surrounding neural thrombus. In frarenal abdominal aortic aneurysm measures approximately 3.0 x 4.0 cm not significantly changed from previous. Small lobulated pseudoaneurysm is similar in appearance measuring 1.2 CCM. Mild stenosis at the celiac origin. Moderate stenosis at the SMA origin which remains patent. Moderat e bilateral renal ostial narrowing with calcification. Renal arteries are patent. Normal renal parenc hymal enhancement. Mild renal cortical atrophy. No hydronephrosis. Bibasilar atelectasis. Small subpl eural opacity in the lingula is stable measuring 5 mm. Noncalcified nodule or opacity along the LEFT fissure measuring 8 mm is stable. Bibasilar atelectasis. Previously described central mesenteric and periaortic lymphadenopathy is stable. LEFT periaortic lym ph node measuring 2.1 CM. Central mesenteric lymph node 2.6 cm. RIGHT pericentral mesenteric lymphade nopathy measuring 2.4 cm stable. Additional prominent peripancreatic and upper abdominal lymph nodes. Stable prominent lymph nodes along the RIGHT iliac chain. Mild hepatomegaly. Gallbladder is contract ed. Normal spleen. Adrenal glands are normal. Normal renal parenchymal enhancement. No hydronephrosis. Bilateral THAs de grade images in the pelvis. Prior colectomy with rectal anastomosis. Prior sigmoid anastomosis. Addit ional small bowel anastomosis is similar in appearance. Tiny fat-containing umbilical hernia. Advance d spondylitic changes lumbar spine. Stable biconcave compression at L2. CT/CT angio abdomen pelvis [id number] IMPRESSION: 1. Stable lobulated infrarenal abdominal aortic aneurysm measuring 3.0 x 4.0 C M. 2. 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 3. Mild to moderate stenosis at the celiac and SMA origins which remain patent . Moderate bilateral renal artery stenosis which remain patent. DAVE is patent. 4. Slightly aneurysmal RIGHT common iliac artery measuring 1.8 cm is unchanged . 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 5. Prior colectomy with rectal anastomosis. Small bowel anastomosis is similar to previous. No evidence of high-grade small bowel obstruction. 6. Stable peripancreatic, central mesenteric, and LEFT periaortic lymphadenopa thy unchanged from previous.
[2021-07-04 09:30] LABS: Blood Urea Nitrogen 13 mg/dL (8-23)
[2021-07-04] MEDS: iohexol 350 mg/mL 100 mL Btl IV (09:51)
== END 2021-07-04 08:22 | disposition home or self-care (01) ==
PROVIDERS: PCP Physician Assistant; Visit Provider Thoracic Surgery (Cardiothoracic Vascular Surgery)
DX: I71.4 Abdominal aortic aneurysm, without rupture (principal); I70.8 Atherosclerosis of other arteries; K63.89 Other specified diseases of intestine; R59.1 Generalized enlarged lymph nodes; Z90.49 Acquired absence of other specified parts of digestive tract
CPT/HCPCS: 74174; 82565; 84520

== ENCOUNTER → 2021-07-21 09:20 | Outpatient (BNVA) | payer MEDICARE, OTHER, SELFPAY | PROVIDERS: PCP Physician Assistant; Visit Provider Thoracic Surgery (Cardiothoracic Vascular Surgery) | DX: I71.4 Abdominal aortic aneurysm, without rupture (principal); Z87.891 Personal history of nicotine dependence ==

== ENCOUNTER → 2021-08-29 08:13 | Outpatient (BNVA) | payer MEDICARE, OTHER, SELFPAY | PROVIDERS: PCP Physician Assistant; Referring Provider Physician Assistant; Visit Provider Orthopaedic Surgery | DX: M48.062 Spinal stenosis, lumbar region with neurogenic claudication (principal) | CPT/HCPCS: 72100; 99204 ==

== ENCOUNTER 2021-09-04 06:00 | Outpatient (RCR) | payer MEDICARE, OTHER, SELFPAY | END 2021-09-09 23:59 | disposition home or self-care (01) | LOC: SPT 06:00 | PROVIDERS: PCP Physician Assistant; Referring Provider Orthopaedic Surgery; Visit Provider Orthopaedic Surgery | DX: M54.50 Low back pain, unspecified (principal); M48.061 Spinal stenosis, lumbar region without neurogenic claudication | CPT/HCPCS: 97110; 97161; G0283 ==

== ENCOUNTER 2021-09-10 06:00 | Outpatient (RCR) | payer MEDICARE, OTHER, SELFPAY | END 2021-09-21 23:59 | disposition home or self-care (01) | LOC: SPT 06:00 | PROVIDERS: PCP Physician Assistant; Referring Provider Orthopaedic Surgery; Visit Provider Orthopaedic Surgery | DX: M54.50 Low back pain, unspecified (principal); M48.061 Spinal stenosis, lumbar region without neurogenic claudication | CPT/HCPCS: 97110; G0283 ==

== ENCOUNTER 2021-10-12 09:24 | Outpatient (CLI) | payer MEDICARE, OTHER, SELFPAY ==
--- NOTE | 2021-10-12 09:30 | MR_ITS ---
WS: [id number] MRI LUMBAR SPINE NONCONTRAST TECHNIQUE: Sagittal T1, T2 and STIR imaging. Axial T1 and T2 imaging. CLINICAL INFORMATION: pain COMPARISON: August 29, 2021 radiograph FINDINGS: Mild lumbar curve. Chronic appearing biconcave compression of the L2 vertebral body. Mild retropulsio n posterior superior cortex with moderate central canal stenosis. Diffuse edema involving the L4 inferior endplate and L5 superior endplates with T2 signal abnormality in the disc space. Small amount paravertebral edema. Differential considerations include discitis ve rsus inflammatory degenerative changes. Recommend clinical correlation for infection. No evidence of epidural or paravertebral abscess. L1-L2: Mild disc bulging with osteophytic ridging. Slight effacement of ventral thecal sac. Moderate central canal stenosis. Slight impingement subarticular recess bilaterally. Mild bilateral foraminal narrowing RIGHT greater than LEFT. Moderate facet arthropathy. L2-L3: Mild disc bulging with slight effacement of ventral thecal sac. Moderate facet arthropathy. Sp inal canal and foramen are patent. L3-L4: Shallow central disc protrusion with mild central canal stenosis. Slight impingement traversin g L4 nerve roots bilaterally. Moderate facet arthropathy. Mild RIGHT greater than LEFT foraminal narr owing. Moderate facet arthropathy. L4-L5: Mild disc bulging with osteophytic ridging. Moderate central canal stenosis. Impingement trave rsing L5 nerve roots bilaterally. Moderate LEFT and mild RIGHT foraminal narrowing. L5-S1: Disc desiccation. Mild disc bulging with osteophytic ridging. Tiny central protrusion. Mild fa cet arthropathy. Mild LEFT greater than RIGHT bony foraminal narrowing. Mild facet arthropathy. Lobulated infrarenal abdominal aortic aneurysm is stable since July 04, 2021.Enlarged LEFT retrop eritoneal lymph nodes also similar in appearance to the prior CT. MR/MR lumbar spine wo con* [id number] IMPRESSION: 1. Chronic biconcave compression L2 vertebral body with mild chronic retropuls ion posterior superior cortex. This results in moderate central canal stenosis with impingement subarticular recess. 2. Diffuse edema involving the inferior L4 and superior L5 abutting endplates with T2 signal in the disc space. Paravertebral edema. Differential considerati ons include discitis versus inflammatory degenerative changes. Recommend correl ation for infection. 3. No evidence of paravertebral abscess or epidural abscess. 4. Mild central canal stenosis L3-L4 with a small central protrusion. Impingem ent traversing L4 nerve roots bilaterally. 5. Moderate central canal stenosis L4-L5 with impingement traversing L5 nerve roots. 6. Multilevel foraminal narrowing described above worse at LEFT L4-L5. 7. Lobulated infrarenal abdominal aortic aneurysm is stable since July 04, 2021. 8. Enlarged LEFT retroperitoneal lymph nodes also similar in appearance to the prior CT.
== END 2021-10-12 09:25 | disposition home or self-care (01) ==
LOC: RAD 09:25
PROVIDERS: PCP Physician Assistant; Visit Provider Orthopaedic Surgery
DX: M54.50 Low back pain, unspecified (principal)
CPT/HCPCS: 72148

== ENCOUNTER → 2021-10-31 08:10 | Outpatient (BNVA) | payer MEDICARE, OTHER, SELFPAY | PROVIDERS: PCP Physician Assistant; Visit Provider Orthopaedic Surgery | DX: M48.062 Spinal stenosis, lumbar region with neurogenic claudication (principal) | CPT/HCPCS: 99213; 99214 ==

== ENCOUNTER 2021-11-16 09:10 | Outpatient (CLI) | payer MEDICARE, OTHER, SELFPAY ==
--- NOTE | 2021-11-16 11:00 | CT_ITS ---
WS: [id number] CT CHEST, ABDOMEN AND PELVIS WITH CONTRAST HISTORY: lymphadenopathy TECHNIQUE: Contiguous 5 mm axial imaging performed through the chest, abdomen and pelvis with IV cont rast, oral contrast has been provided. Coronal and sagittal reformats chest. Coronal and sagittal ref ormats through the abdomen and pelvis. All CT scans at [facility] use at least one of these d ose optimization techniques: automated exposure control; mA and/or kV adjustment per patient size (in cludes targeted exams where dose is matched to clinical indication); or iterative reconstruction. CONTRAST: Omnipaque 350; 95 mL IV. DLP: 1777.01 mGy.cm COMPARISON: 07/04/2021, 04/11/2021 and 10/26/[address]: Lungs are clear. No pulmonary nodule or mass. No pericardial or pleural effusion. Cardiac c hambers are normal size. Mild atherosclerotic plaque throughout the aorta. There is also pleural plaq ue in the anterior RIGHT upper thorax. Normal size pulmonary artery. No mediastinal or hilar lymphade nopathy. Small hiatal hernia. Abdomen CT: Normal size liver and spleen. Normally enhancing portal vein. Normal gallbladder and panc reas. No adrenal mass. Normal size kidneys bilaterally. No obstruction or mass. Abdominal aorta: Again noted is the infrarenal abdominal aortic aneurysmal dilatation measuring 3.3 x 4.2 cm with very slight increase in size. Saccular versus pseudoaneurysm. Of concern is contrast ext ending beyond the calcified lumen into the thrombus the surrounds the plaque. This was identified on prior studies and may represent an ulcerated plaque. No significant increase in size. This has been p reviously described and evaluated. Atherosclerotic plaque continues into the iliac arteries. Densely calcified plaque at the origins of the celiac axis and SMA and renal arteries. No occlusions. No ascites. Small lymph nodes around the celiac axis and pancreas and SMA are stable. No increase in size of lymp hadenopathy. Mesenteric lymph node just to the RIGHT of midline measures 1.8 cm. There is an addition al LEFT retroperitoneal lymph node just below the level of the renal artery measuring 2.3 cm. No new or increasing size of lymph nodes. No GI tract obstruction. Partial colectomy. Anastomosis at the rectum is reidentified. There is no ob struction at the anastomosis. There is some very mild wall thickening with submucosal edema noted inv olving the distal small bowel in the RIGHT lower quadrant. Probably also present on the prior study b ut better seen today. There is mild wall thickening. No obstruction. Pelvic CT: Moderately distended urinary bladder. No adenopathy the pelvis. Portions of the pelvis are being obscured by the patient's bilateral hip prostheses. L2 biconcave compression fracture. Advanced degenerative changes and spondylosis. CT/CT chest abd pel w con* IMPRESSION: 1. Continued improvement in the size and number of the mesenteric and LEFT ret roperitoneal lymph nodes. Largest lymph node within the LEFT retroperitoneal me asuring 2.3 cm. Significant improvement. Largest lymph node 2.3 cm LEFT retrope ritoneum. 2. No mediastinal or hilar adenopathy. 3. Status post near complete colectomy with anastomotic sutures near the rectu m. Distal anastomotic small bowel loop is thickened with a luminal narrowing bu t no obstruction. Suspect involvement with ulcerative colitis. 4. Aneurysmal dilatation of the infrarenal aorta with minimal progression. Ane urysm measures 3.3 x 4.2 cm. Contrast extends beyond the calcified wall of the aneurysm into the mural thrombus. This is probably a focal ulceration. Seen on the prior studies. 5. Moderate atherosclerotic changes at the origin of the great vessels and lico al arteries.
[2021-11-16 11:14] LABS: Blood Urea Nitrogen 13 mg/dL (8-23)
[2021-11-16] MEDS: iohexol 350 mg/mL 100 mL Btl IV (11:41)
[2021-11-16] MEDS: barium sulfate 450 mL Oral Susp PO (11:42)
== END 2021-11-16 09:11 | disposition home or self-care (01) ==
PROVIDERS: Radiology Diagnostic Radiology; PCP Physician Assistant; Visit Provider Nurse Practitioner
DX: R59.1 Generalized enlarged lymph nodes (principal)
CPT/HCPCS: 71260; 74177; 82565; 84520

== ENCOUNTER 2021-11-21 12:19 | Oncology outpatient (recurring) (ONCR) | payer MEDICARE, OTHER, SELFPAY | END 2021-11-21 23:59 | disposition home or self-care (01) | PROVIDERS: PCP Physician Assistant; Visit Provider Internal Medicine Medical Oncology | DX: R59.0 Localized enlarged lymph nodes (principal); I71.4 Abdominal aortic aneurysm, without rupture | CPT/HCPCS: 99214; G0463 ==

== ENCOUNTER → 2021-11-27 08:11 | Outpatient (BNVA) | payer MEDICARE, OTHER, SELFPAY | PROVIDERS: PCP Physician Assistant; Visit Provider Anesthesiology Pain Medicine | DX: M48.062 Spinal stenosis, lumbar region with neurogenic claudication (principal); M47.816 Spondylosis without myelopathy or radiculopathy, lumbar region; M51.36 Other intervertebral disc degeneration, lumbar region; M51.16 Intervertebral disc disorders with radiculopathy, lumbar region; M79.604 Pain in right leg; M79.605 Pain in left leg; Z87.891 Personal history of nicotine dependence | CPT/HCPCS: 99204 ==

== ENCOUNTER → 2021-12-13 12:50 | Outpatient (BNVA) | payer MEDICARE, OTHER, SELFPAY | PROVIDERS: PCP Physician Assistant; Visit Provider Anesthesiology Pain Medicine | DX: Z87.891 Personal history of nicotine dependence (principal); M47.816 Spondylosis without myelopathy or radiculopathy, lumbar region; M48.062 Spinal stenosis, lumbar region with neurogenic claudication | CPT/HCPCS: 64493; 64494; 64495; J3490 ==

== ENCOUNTER → 2021-12-27 09:40 | Outpatient (BNVA) | payer MEDICARE, OTHER, SELFPAY | PROVIDERS: PCP Physician Assistant; Visit Provider Anesthesiology Pain Medicine | DX: M79.604 Pain in right leg (principal); M79.605 Pain in left leg; Z87.891 Personal history of nicotine dependence; M48.062 Spinal stenosis, lumbar region with neurogenic claudication; M47.816 Spondylosis without myelopathy or radiculopathy, lumbar region; M51.36 Other intervertebral disc degeneration, lumbar region; M51.16 Intervertebral disc disorders with radiculopathy, lumbar region | CPT/HCPCS: 99214 ==

== ENCOUNTER → 2022-01-09 13:32 | Outpatient (BNVA) | payer MEDICARE, OTHER, SELFPAY | PROVIDERS: PCP Physician Assistant; Visit Provider Anesthesiology Pain Medicine | DX: M47.816 Spondylosis without myelopathy or radiculopathy, lumbar region (principal); E11.9 Type 2 diabetes mellitus without complications; M48.062 Spinal stenosis, lumbar region with neurogenic claudication | CPT/HCPCS: 36416; 64635; 64636; 82962; J1030 ==

== ENCOUNTER → 2022-01-24 09:32 | Outpatient (BNVA) | payer MEDICARE, OTHER, SELFPAY | PROVIDERS: PCP Physician Assistant; Visit Provider Anesthesiology Pain Medicine | DX: M48.062 Spinal stenosis, lumbar region with neurogenic claudication (principal); M47.816 Spondylosis without myelopathy or radiculopathy, lumbar region; M51.36 Other intervertebral disc degeneration, lumbar region; M51.16 Intervertebral disc disorders with radiculopathy, lumbar region; M79.604 Pain in right leg; M79.605 Pain in left leg; Z87.891 Personal history of nicotine dependence | CPT/HCPCS: 99213 ==

== ENCOUNTER → 2022-03-07 13:45 | Outpatient (BNVA) | payer MEDICARE, OTHER, SELFPAY | PROVIDERS: PCP Physician Assistant; Visit Provider Anesthesiology Pain Medicine | DX: M48.062 Spinal stenosis, lumbar region with neurogenic claudication (principal); M47.816 Spondylosis without myelopathy or radiculopathy, lumbar region; M51.36 Other intervertebral disc degeneration, lumbar region; M51.16 Intervertebral disc disorders with radiculopathy, lumbar region; M79.604 Pain in right leg; M79.605 Pain in left leg; Z87.891 Personal history of nicotine dependence | CPT/HCPCS: 99214 ==

== ENCOUNTER → 2022-03-26 14:22 | Outpatient (BNVA) | payer MEDICARE, OTHER, SELFPAY | PROVIDERS: PCP Physician Assistant; Visit Provider Anesthesiology Pain Medicine | DX: M54.16 Radiculopathy, lumbar region (principal); E11.9 Type 2 diabetes mellitus without complications | CPT/HCPCS: 36416; 62323; 82962; J1030; J3490 ==

== ENCOUNTER 2022-04-04 22:28 | Emergency (ER) | payer MEDICARE, OTHER, SELFPAY ==
[2022-04-04] VITALS (8 sets, daily range): BP systolic 91–134; BP diastolic 46–79; PULSE 62–78; RESP 14–28; TEMP 36.3–36.9; O2SAT 93–99; BMI 25.7
--- NOTE | 2022-04-04 22:30 | XRR_ITS ---
PROCEDURE INFORMATION: Exam: XR Left Hip Exam date and time: 04/04/2022 11:55 PM Age: 76 years old Clinical indication: Hip pain; Left hip; Prior surgery; Surgery date: 6+ months; Additional info: Injury TECHNIQUE: Imaging protocol: Radiologic exam of the Left hip. Views: 2 or 3 views hip with pelvis when performed. COMPARISON: CT chest abd pel w con* 11/16/2021 11:18 AM FINDINGS: Bones/joints: There is a left total hip arthroplasty without signs of loosening or fracture. There is a anterior superior dislocation of the femoral component from the acetabular component with lateral rotation. Soft tissues: Unremarkable. Intraperitoneal space: Surgical clips throughout the pelvis. XR/XR hip LT 2-3V wo/w pel* [id number] IMPRESSION: Dislocation of left total hip arthroplasty. No fractures.
--- NOTE | 2022-04-04 22:38 | ED_ITS ---
HPI - Extremity Problem General: Chief complaint: Extremity Injury, Lower Stated complaint: LEFT HIP PAIN Time Seen by Provider: 04/04/22 22:29 Source: patient and EMS Mode of arrival: EMS Limitations: no limitations History of Present Illness: 76-year-old male states he has has a history of a hip replacement to the left side. He states that he is standing in his bathroom and felt a sudden pop in his left hip and fell to the ground. He states he is not tempted to stand since and has been having left hip pain especially range of motion he rates his pain a 3 out of 10 currently denies any other injuries. Denies any radiation of his pain. Associated symptoms: Deny chest pain, fever(s) or rash Review of Systems Const: Denies: fever(s), chills, body aches or change in appetite Eyes: Denies: blurry vision or eye discomfort ENMT: Denies: throat pain or dental pain Card: Denies: chest pain Resp: Denies: dyspnea GI: Denies: abdominal pain, nausea, vomiting or diarrhea : Denies: dysuria Musc: Reports: extremity pain; Denies: neck pain or back pain Skin/Breast: Denies: rash Neuro: Denies: headache(s) Psych: Denies: depression Roney/Lymph: Denies: easy bruising All/Imm: Denies: urticaria PFSH ED PFSH: Medical History AAA (abdominal aortic aneurysm) Benign prostatic hyperplasia 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, of the knee Chronic kidney disease Degenerative arthritis Hyperlipidemia Hypertension Lumbar stenosis with neurogenic claudication Macular degeneration Peripheral neuropathy Retroperitoneal lymphadenopathy Type 2 diabetes mellitus Ulcerative colitis Vitamin B12 deficiency Surgical History History of arthroscopic knee surgery History of revision of total replacement of hip joint Revision of right total hip arthroplasty History of total colectomy History of total replacement of both hip joints Hx of arthroscopy of right knee Hx of shoulder surgery Arthroscopic right shoulder surgery Hx of tonsillectomy Family History Other Diabetes Lung cancer Social History Smoking and tobacco status: former smoker Quit status (tobacco): has quit using tobacco Year quit tobacco: 1972 Former quit date comment: 1 pack per day for 5 years Alcohol intake: never Lives independently: Yes Household members: spouse Marital status: Number of children: 3 Pets and animals: No Physical Exam Const: COMMON NORMALS: no acute distress, patient oriented x3 and healthy appearing HENMT: COMMON NORMALS: normocephalic and atraumatic HEAD & SCALP: normocephalic and atraumatic Eye: COMMON NORMALS: Equal, round and reactive pupils present and EOMs intact bilaterally PUPIL: Yes Equal, round and reactive pupils present Neck/C-Spine: COMMON NORMALS: full ROM and supple Chest: COMMONS NORMALS: normal inspection of the chest and normal palpation of entire chest wall Resp: COMMON NORMALS: normal respiratory effort, No retractions, No use of accessory muscles and clear to auscultation bilaterally AUSCULTATION: clear to auscultation bilaterally Cardio: COMMON NORMALS: regular rate, regular rhythm and No murmurs present (Cardio) RATE: regular rate RHYTHM: regular rhythm GI: COMMON NORMALS: Normal to inspection, nondistended, normoactive bowel sounds present, Soft to palpation, non-tender and no masses PALPATION: Yes Soft to palpation Extremity: NARRATIVE EXTREMITY EXAM: Some slight tenderness to left hip along with pain with range of motion distal pulses intact no obvious deformity Neuro: COMMON NORMALS: patient oriented x3, moves all extremities and no focal motor deficits Psych: COMMON NORMALS: mental status grossly normal, Normal thought process present and cooperative THOUGHT PROCESS: Normal thought process present Skin: COMMON NORMALS: no rashes or lesions noted and no wounds GENERAL SKIN EXAM: no rashes or lesions noted Procedures Orthopedic Joint Reduction Joint #1: Time Out Performed: Yes Side: left Joint Reduction Location: hip Analgesia: procedural sedation Technique used: traction/counter-traction Post-reduction neuro exam: intact Post-reduction vascular: intact Post Reduction X-Ray Obtained: Yes Post Reduction X-Ray Results: reduced Splint Applied: Yes Patient Tolerated Procedure: well Procedural Sedation Indication: fracture/dislocation reduction ASA Class: I Time of Last PO Intake: 14:00 Preparation: air sampling and monitoring applied and pulse oximeter IV Propofol dose (mg): 100 Patient Tolerated Procedure: well Complications: none Course Vital Signs: Vital signs: Vital Signs Temperature 98.5 F 04/04/22 22:56 Pulse Rate 63 04/05/22 00:00 Respiratory Rate 15 04/05/22 00:00 Blood Pressure 106/60 04/05/22 00:00 Pulse Oximetry 97 04/05/22 00:00 Oxygen Delivery Me thod 04/05/22 00:00 Oxygen Flow Rate 2 04/05/22 00:00 MDM - Extremity (Nontraumatic) Medical Decision Making Patient presents here with left hip dislocation was able to reduce it here in the ER he is now awake and alert he stable for discharge he is to follow-up orthopedics he is return if worsening he understands agrees to plan. Lab Data Radiology Impressions Hip/Pelvis X-Ray 04/04/22 22:30 IMPRESSION: Dislocation of left total hip arthroplasty. No fractures. Discharge Plan Discharge Patient Disposition: Home Clinical Impression: Dislocation, hip Qualifiers: Encounter type: initial encounter Laterality: left Qualified Code(s): S73.005A - Unspecified dislocation of left hip, initial encounter Condition: Stable Prescriptions: No Action diphenoxylate-atropine [Lomotil] 2.5-0.025 mg tablet 2 tab PO TID atorvastatin 40 mg tablet 40 mg PO DAILY aspirin [Adult Low Dose Aspirin] 81 mg tablet,delayed release (DR/EC) 81 mg PO DAILY fluticasone propionate [Flonase Allergy Relief] 50 mcg/actuation spray,suspension 1 spray INTRANASAL BID cinnamon bark [Cinnamon] 500 mg capsule 2,000 mg PO DAILY calcium carbonate [Calcium 500] 500 mg calcium (1,250 mg) tablet 500 mg PO DAILY cholecalciferol (vitamin D3) 1,000 unit capsule 1,000 unit PO DAILY zinc 50 mg tablet 50 mg PO DAILY amlodipine [Norvasc] 5 mg tablet 5 mg PO DAILY methylprednisolone acetate [Depo-Medrol] 40 mg/mL suspension 40 mg Infiltration ONCE Qty: 1 0RF methylprednisolone acetate [Depo-Medrol] 80 mg/mL suspension 80 mg Infiltration ONCE Qty: 1 0RF bupivacaine (PF) 0.25 % (2.5 mg/mL) solution 2 ml Infiltration ONCE Qty: 1 0RF multivitamin Tablet 1 tab PO DAILY cyanocobalamin (vitamin B-12) 1,000 mcg/mL solution 1,000 mcg IM Q42D Rx Instructions: 1 ml IM every 6 weeks Discharge Orders: Discharge ED (Routine); Ordered 04/05/22 Ordered By: Venus Chapman Referrals: Suzette Wu MD [Physician] - 1-3 days Amirah Mckeon PA [Primary Care Provider] - Discharge Diet: Advance as tolerated Discharge Activity: Increase activity as tolerated Patient Instructions: Hip Dislocation (ED) Coding Level of Care Code ED Silverware Cleaner for Chg Fwd Exam Comprehensive
[2022-04-04] MEDS: HYDROcodone-acetaminophen 5-325 mg Tablet 1 TAB PO (23:18)
[2022-04-04] MEDS: propofol 10 mg/mL SDV 20 mL 100 MG IVP (23:35)
--- NOTE | 2022-04-04 23:41 | XRR_ITS ---
PROCEDURE INFORMATION: Exam: XR Left Hip Exam date and time: 04/05/2022 12:35 AM Age: 76 years old Clinical indication: Injury or trauma; Fall; Dislocation; Hip; Prior surgery; Surgery type: Left krissy; Patient HX: Check S/P reduction; Additional info: Post reduction TECHNIQUE: Imaging protocol: Radiologic exam of the Left hip. Views: 1 view hip with pelvis when performed. COMPARISON: CR (PELVIS, ) 04/04/2022 11:55 PM FINDINGS: Bones/joints: There has been reduction of the previous dislocation of the left total hip arthroplasty. Alignment is anatomic. No fractures. Soft tissues: Unremarkable. Intraperitoneal space: There are surgical clips throughout the pelvis. XR/XR hip LT 1V wo/w pel [id number] IMPRESSION: Reduction of previously seen dislocation of the left total hip arthroplasty.
[2022-04-05] VITALS: BP 106/60; PULSE 63; RESP 15; O2SAT 97
[2022-04-05 02:22] VITALS: BP 106/60; PULSE 63; RESP 15; O2SAT 97
--- NOTE | 2022-04-05 04:57 | DCPLANNER ---
Addendum entered by Mirian Chaidez 04/26/22 15:09: residential mortgage manager received the following message from the ortho clinic regarding follow up appointment: attempt made to contact patient - left vm and will mail letter. pt will be scheduled with Dr. Wu as she did his previous surgery. per dr wu can schedule within the next couple weeks. Original Note: residential mortgage manager had message to schedule a follow up appointment for patient with ortho. residential mortgage manager sent patients information to the front office staff at ortho. Patients information will be printed and reviewed. Clinic will call patient with appointment information.
== END 2022-04-05 01:37 | disposition home or self-care (01) ==
PROVIDERS: Emergency Provider Emergency Medicine; PCP Physician Assistant
DX: T84.021A Dislocation of internal left hip prosthesis, initial encounter (principal); Z79.82 Long term (current) use of aspirin; E78.5 Hyperlipidemia, unspecified; I10 Essential (primary) hypertension; H35.30 Unspecified macular degeneration; E11.9 Type 2 diabetes mellitus without complications; Z87.891 Personal history of nicotine dependence; Z96.642 Presence of left artificial hip joint
CPT/HCPCS: 27265; 73501; 73502; 99285; J2704

== ENCOUNTER → 2022-04-25 09:45 | Outpatient (BNVA) | payer MEDICARE, OTHER, SELFPAY | PROVIDERS: PCP Physician Assistant; Visit Provider Anesthesiology Pain Medicine | DX: M48.062 Spinal stenosis, lumbar region with neurogenic claudication (principal); M47.816 Spondylosis without myelopathy or radiculopathy, lumbar region; M51.36 Other intervertebral disc degeneration, lumbar region; M51.16 Intervertebral disc disorders with radiculopathy, lumbar region; M79.604 Pain in right leg; M79.605 Pain in left leg | CPT/HCPCS: 99212 ==

== ENCOUNTER → 2022-06-04 07:34 | Outpatient (BNVA) | payer MEDICARE, SELFPAY | PROVIDERS: PCP Physician Assistant; Visit Provider Student in an Organized Health Care Education/Training Program | DX: M18.11 Unilateral primary osteoarthritis of first carpometacarpal joint, right hand (principal) | CPT/HCPCS: 20550; 73130; 99204; J3301 ==

== ENCOUNTER → 2022-06-19 07:57 | Outpatient (BNVA) | payer MEDICARE, SELFPAY | PROVIDERS: PCP Physician Assistant; Visit Provider Podiatrist Foot & Ankle Surgery | DX: E11.8 Type 2 diabetes mellitus with unspecified complications (principal); E11.42 Type 2 diabetes mellitus with diabetic polyneuropathy; L60.3 Nail dystrophy; L84 Corns and callosities; I73.9 Peripheral vascular disease, unspecified | CPT/HCPCS: 11056; 11721 ==

== ENCOUNTER 2022-07-11 06:38 | Outpatient (CLI) | payer MEDICARE, SELFPAY ==
--- NOTE | 2022-07-11 07:00 | USCV_ITS ---
Donta Gomes Age: 76 Gender: M : 1945 Exam Date: 07/11/2022 07:07 Ordering Phys: Nathan Bryan MD (Andy) ([email or web address]) Technologist: VALENTIN [place] [facility] [place]: F/U KNOWN AAA SEEN ON CT HISTORY: Diameter (cm) AP x Transverse x Length Velocity (cm/s) Waveform Prox Aorta: 2.43 x 2.43 x 68.00 Triphasic Mid Aorta: 2.23 x 1.88 x 71.00 Triphasic Distal Aorta: 3.00 x 3.97 x 70.40 Triphasic Right Iliac Prox: 1.31 x 1.31 x 136.40 Triphasic Left Iliac Prox: 1.22 x 1.08 x 93.50 Stent Prox Landing x x Aneurysmal Sac Max x x Lt Lat Sac Dim Rt Lat Sac Dim Stent Dist Landing x x Right Iliac Stent x x Left Iliac Stent x x Right Renal Art Left Renal Art FINDINGS: Comparison: CT 11/16/21. The abdominal aorta could not be adequately visualized. A complete assessment of the abdominal aorta was not possible. Known AAA since on prior CT. This AAA is heavily calcified therefore assessment by ultrasound is very limited the exact measurement is difficult to obtain due to shadowing. There is evidence of atherosclerotic plaque no significan stenosis in the right common iliac artery. There is evidence of atherosclerotic plaque no significan stenosis in the left common iliac artery. CONCLUSIONS Very limited evaluation of the known AAA by ultrasound due to body habitus and heavy calcification in the AAA seen on the CT. For accurate evaluation of AAA CTA should be obtained. Dr. Nelly Bishop DO (Electronically Signed) Final Date: 11 July 2022 09:48 S
== END 2022-07-11 06:39 | disposition home or self-care (01) ==
LOC: RAD 06:40
PROVIDERS: PCP Physician Assistant; Visit Provider Thoracic Surgery (Cardiothoracic Vascular Surgery)
DX: I71.40 Abdominal aortic aneurysm, without rupture, unspecified (principal)
CPT/HCPCS: 93978

== ENCOUNTER → 2022-07-30 08:19 | Outpatient (BNVA) | payer MEDICARE, SELFPAY | PROVIDERS: PCP Physician Assistant; Visit Provider Student in an Organized Health Care Education/Training Program | DX: M18.11 Unilateral primary osteoarthritis of first carpometacarpal joint, right hand (principal) | CPT/HCPCS: 99213 ==

== ENCOUNTER → 2022-08-01 08:47 | Outpatient (BNVA) | payer MEDICARE, SELFPAY | PROVIDERS: PCP Physician Assistant; Visit Provider Anesthesiology Pain Medicine | DX: M48.062 Spinal stenosis, lumbar region with neurogenic claudication (principal); M47.816 Spondylosis without myelopathy or radiculopathy, lumbar region; M51.36 Other intervertebral disc degeneration, lumbar region; M51.16 Intervertebral disc disorders with radiculopathy, lumbar region | CPT/HCPCS: 99214 ==

== ENCOUNTER → 2022-08-16 10:16 | Outpatient (BNVA) | payer MEDICARE, SELFPAY | PROVIDERS: PCP Physician Assistant; Visit Provider Thoracic Surgery (Cardiothoracic Vascular Surgery) | DX: I71.43 Infrarenal abdominal aortic aneurysm, without rupture (principal); Z87.891 Personal history of nicotine dependence; Z79.82 Long term (current) use of aspirin | CPT/HCPCS: 99213 ==

== ENCOUNTER → 2022-09-20 07:50 | Outpatient (BNVA) | payer MEDICARE, SELFPAY | PROVIDERS: PCP Physician Assistant; Visit Provider Podiatrist Foot & Ankle Surgery | DX: E11.8 Type 2 diabetes mellitus with unspecified complications (principal); E11.42 Type 2 diabetes mellitus with diabetic polyneuropathy; L60.3 Nail dystrophy; L84 Corns and callosities; I73.9 Peripheral vascular disease, unspecified | CPT/HCPCS: 11055; 11721 ==

== ENCOUNTER → 2022-11-01 09:10 | Outpatient (BNVA) | payer MEDICARE, SELFPAY | PROVIDERS: PCP Physician Assistant; Visit Provider Anesthesiology Pain Medicine | DX: M48.062 Spinal stenosis, lumbar region with neurogenic claudication (principal); M47.816 Spondylosis without myelopathy or radiculopathy, lumbar region; M51.36 Other intervertebral disc degeneration, lumbar region; M51.16 Intervertebral disc disorders with radiculopathy, lumbar region | CPT/HCPCS: 99214 ==

== ENCOUNTER → 2022-11-27 07:53 | Outpatient (BNVA) | payer MEDICARE, SELFPAY | PROVIDERS: PCP Physician Assistant; Visit Provider Podiatrist Foot & Ankle Surgery | DX: E11.42 Type 2 diabetes mellitus with diabetic polyneuropathy (principal); L60.3 Nail dystrophy; L84 Corns and callosities; I73.9 Peripheral vascular disease, unspecified | CPT/HCPCS: 11056; 11721 ==

== ENCOUNTER → 2022-12-12 13:25 | Outpatient (BNVA) | payer MEDICARE, SELFPAY | PROVIDERS: PCP Physician Assistant; Visit Provider Anesthesiology Pain Medicine | DX: M47.816 Spondylosis without myelopathy or radiculopathy, lumbar region (principal); M48.062 Spinal stenosis, lumbar region with neurogenic claudication | CPT/HCPCS: 64493; 64494; 64495; J1040; J3490 ==

== ENCOUNTER → 2022-12-26 09:48 | Outpatient (BNVA) | payer MEDICARE, SELFPAY | PROVIDERS: PCP Physician Assistant; Visit Provider Anesthesiology Pain Medicine | DX: M48.062 Spinal stenosis, lumbar region with neurogenic claudication (principal) | CPT/HCPCS: 99214 ==

== ENCOUNTER → 2023-02-26 07:54 | Outpatient (BNVA) | payer MEDICARE, SELFPAY | PROVIDERS: PCP Physician Assistant; Visit Provider Podiatrist Foot & Ankle Surgery | DX: E11.42 Type 2 diabetes mellitus with diabetic polyneuropathy (principal); L60.3 Nail dystrophy; I73.9 Peripheral vascular disease, unspecified | CPT/HCPCS: 11721 ==

== ENCOUNTER → 2023-06-04 08:15 | Outpatient (BNVA) | payer MEDICARE, SELFPAY | PROVIDERS: PCP Physician Assistant; Visit Provider Podiatrist Foot & Ankle Surgery | DX: E11.42 Type 2 diabetes mellitus with diabetic polyneuropathy (principal); L60.3 Nail dystrophy; I73.9 Peripheral vascular disease, unspecified | CPT/HCPCS: 11721 ==

== ENCOUNTER 2023-07-17 07:07 | Outpatient (CLI) | payer MEDICARE, SELFPAY ==
--- NOTE | 2023-07-17 07:30 | USCV_ITS ---
Donta Gomes Age: 77 Gender: M : 1945 Exam Date: 07/17/2023 07:21 Ordering Phys: Nathan Bryan MD (Andy[email or web address] Technologist: BJ [place] [facility] [place]: AAA HISTORY: Diameter (cm) AP x Transverse x Length Velocity (cm/s) Waveform Prox Aorta: 1.78 x 2.05 x 73.40 Triphasic Mid Aorta: 1.73 x 1.76 x 75.60 Triphasic Distal Aorta: 3.86 x 4.48 x 86.60 Triphasic Right Iliac Prox: 1.03 x 1.17 x 112.50 Triphasic Left Iliac Prox: 0.90 x 1.24 x 106.70 Triphasic Stent Prox Landing x x Aneurysmal Sac Max x x Lt Lat Sac Dim Rt Lat Sac Dim Stent Dist Landing x x Right Iliac Stent x x Left Iliac Stent x x Right Renal Art Left Renal Art FINDINGS: CONCLUSIONS Distal AAA measuring 3.8 x 4.4cm with eccentric calcified ulcerated plaque. Recommend CTA in further evaluation for better anatomic detail. This measures larger today compared to previous 07/11/22 Normal iliac arteries Michael Lee MD (Electronically Signed) Final Date: 17 July 2023 09:05 S
== END 2023-07-17 07:08 | disposition home or self-care (01) ==
LOC: RAD 07:08
PROVIDERS: PCP Physician Assistant; Visit Provider Thoracic Surgery (Cardiothoracic Vascular Surgery)
DX: I71.40 Abdominal aortic aneurysm, without rupture, unspecified (principal)
CPT/HCPCS: 93978

== ENCOUNTER → 2023-09-02 14:15 | Outpatient (BNVA) | payer MEDICARE, SELFPAY | PROVIDERS: PCP Physician Assistant; Visit Provider Thoracic Surgery (Cardiothoracic Vascular Surgery) | DX: I71.43 Infrarenal abdominal aortic aneurysm, without rupture (principal) | CPT/HCPCS: 99213 ==

== ENCOUNTER → 2023-09-03 07:46 | Outpatient (BNVA) | payer MEDICARE, SELFPAY | PROVIDERS: PCP Physician Assistant; Visit Provider Podiatrist Foot & Ankle Surgery | DX: E11.42 Type 2 diabetes mellitus with diabetic polyneuropathy (principal); L60.3 Nail dystrophy; I73.9 Peripheral vascular disease, unspecified | CPT/HCPCS: 11721 ==

== ENCOUNTER 2023-10-01 07:43 | Outpatient (CLI) | payer MEDICARE, SELFPAY ==
--- NOTE | 2023-10-01 08:00 | CT_ITS ---
WS: [id number] CT ANGIOGRAPHY abdomen and pelvis HISTORY: AAA TECHNIQUE: CT angiogram is performed during IV injection. Reformation images reviewed. All CT scans a [facility] use at least one of these dose optimization techniques: automated exposure contro l; mA and/or kV adjustment per patient size (includes targeted exams where dose is matched to clinica l indication); or iterative reconstruction. CONTRAST: Omnipaque 350; 100 mL IV. DLP: 620.60 mGy.cm COMPARISON: 11/16/2021, 07/04/2021 and 04/11/2021 Chronic emphysematous changes and pleural thickening at the lung bases. Heart size is normal. Abdominal aorta: Good contrast opacification of the abdominal aorta. There is moderate calcification increasing towards the bifurcation. 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 Maximal transverse diameter of the aneurysm is 4.4 cm. There is a l arge focal ulcerated plaque versus pseudoaneurysm containing contrast extending anteriorly within the saccular aneurysm. This ulceration was been present on prior recent CT of 07/04/2021 with no change. Ulceration measures 1.3 x 1.2 cm. Aneurysm tapers to the bifurcation. Mild dilatation of the RIGHT co mmon iliac artery to 1.8 cm. Mildly ectatic but not aneurysmal LEFT common iliac artery. Calcified pl aque continues into the femoral arteries. No occlusions. Mild stenosis proximal celiac axis. Moderate stenosis SMA. No occlusions. Single RIGHT renal artery. Single LEFT renal artery with mild plaque. Early contrast opacification of the organs demonstrates no significant abnormalities. The liver and s pleen are negative. Gallbladder is contracted. Normal pancreas. No adrenal mass. Kidneys are normal s ize. Patient has retroperitoneal mesenteric lymph nodes that were described on 11/16/2021. There is a lymph node in the LEFT retroperitoneum just below the level of the LEFT renal artery which is in a slightly different location than the one previously described. This lymph node measures 1.9 x 2.4 cm. Cannot confirm this is the same lymph node previously described due to slightly different location and abutt ing the psoas muscle. Patient is status post near complete colectomy. Pelvis is difficult to evaluate accurately due to the significant beam hardening artifact from bilateral hip arthroplasties. Small umbilical hernia contai ns fat. Extensive degenerative changes in the lumbar spine as seen on 07/04/2021 also. L2 biconcave compressio n fracture. CT/CT angio abdomen pelvis [id number] IMPRESSION: 1. No significant change in the infrarenal saccular aneurysm since 11/16/2021. M aximum transverse diameter of 4.4 cm. Pseudoaneurysm versus ulcerated plaque is reidentified. 2. There are several mesenteric and retroperitoneal lymph nodes. These lymph n odes have been previously described. There is 1 single lymph node in the LEFT p eriaortic retroperitoneum that appears in a slightly different position than th e previously described on 11/16/2021. This may be a new lymph node measuring 1.9 x 2.4 cm. The position of this lymph node is slightly different than the lymph node described previously. Consider PET/CT imaging. Recurrent colon cancer elena ld be considered. 3. Mild RIGHT common iliac artery dilatation to 1.8 cm.
[2023-10-01 08:19] LABS: Blood Urea Nitrogen 11 mg/dL (8-23)
[2023-10-01] MEDS: iohexol 350 mg/mL 500 mL Btl (per mL) IV (08:28)
== END 2023-10-01 07:44 | disposition home or self-care (01) ==
LOC: RAD 07:43
PROVIDERS: PCP Physician Assistant; Visit Provider Thoracic Surgery (Cardiothoracic Vascular Surgery)
DX: I71.40 Abdominal aortic aneurysm, without rupture, unspecified (principal); J92.9 Pleural plaque without asbestos; J98.4 Other disorders of lung; I72.3 Aneurysm of iliac artery; I77.4 Celiac artery compression syndrome; I77.1 Stricture of artery; M48.56XA Collapsed vertebra, not elsewhere classified, lumbar region, initial encounter for fracture
CPT/HCPCS: 74174; 82565; 84520; Q9967

== ENCOUNTER 2023-11-07 23:24 | Emergency (ER) | payer MEDICARE, SELFPAY ==
--- NOTE | 2023-11-07 23:25 | CTR_ITS ---
PROCEDURE INFORMATION: Exam: CT Head Without Contrast Exam date and time: 11/07/2023 11:28 PM Age: 77 years old Clinical indication: Injury or trauma TECHNIQUE: Imaging protocol: Computed tomography of the head without contrast. Radiation optimization: All CT scans at this facility use at least one of these dose optimization techniques: automated exposure control; mA and/or kV adjustment per patient size (includes targeted exams where dose is matched to clinical indication); or iterative reconstruction. COMPARISON: MR head wo con* [id number] 11/12/2018 2:07 PM RADIATION DOSE METRICS: Total DLP (mGy-cm): 1128.7 FINDINGS: Brain: Moderate diffuse white matter disease likely reflecting chronic microvascular ischemic changes. Cerebral ventricles: No ventriculomegaly. Paranasal sinuses: Visualized sinuses are unremarkable. No fluid levels. Mastoid air cells: Visualized mastoid air cells are well aerated. Bones: Unremarkable. No acute fracture. Soft tissues: Unremarkable. CT/CT head wo con* [id number] IMPRESSION: 1. Negative for intracranial hemorrhage or mass effect. 2. Moderate diffuse white matter disease likely reflecting chronic microvascular ischemic changes.
--- NOTE | 2023-11-07 23:25 | CTR_ITS ---
PROCEDURE INFORMATION: Exam: CT Cervical Spine Without Contrast Exam date and time: 11/07/2023 11:28 PM Age: 77 years old Clinical indication: Injury or trauma; Fall TECHNIQUE: Imaging protocol: Computed tomography of the cervical spine without contrast. Radiation optimization: All CT scans at this facility use at least one of these dose optimization techniques: automated exposure control; mA and/or kV adjustment per patient size (includes targeted exams where dose is matched to clinical indication); or iterative reconstruction. COMPARISON: CT head wo con* [id number] 11/07/2023 11:28 PM RADIATION DOSE METRICS: Total DLP (mGy-cm): 696.4 FINDINGS: Bones/joints: Multilevel mid to lower cervical spine moderate to severe disc space narrowing. Grade 1 anterolisthesis of C3 relative to C4 of 2.5 mm. C2-C3: No significant disc bulge or herniation. No severe spinal canal stenosis. No significant neural foraminal narrowing. C3-C4: No significant disc bulge or herniation. No severe spinal canal stenosis. No significant neural foraminal narrowing. C4-C5: No significant disc bulge or herniation. No severe spinal canal stenosis. No significant neural foraminal narrowing. C5-C6: No significant disc bulge or herniation. No severe spinal canal stenosis. No significant neural foraminal narrowing. C6-C7: No significant disc bulge or herniation. No severe spinal canal stenosis. No significant neural foraminal narrowing. C7-T1: No significant disc bulge or herniation. No severe spinal canal stenosis. No significant neural foraminal narrowing. Lungs: Lung apices are normal. Vasculature: Carotid artery atherosclerotic disease. Soft tissues: Unremarkable. CT/CT cervical spin wo con* [id number] IMPRESSION: 1. Negative for fracture or dislocation. 2. Multilevel mid to lower cervical spine moderate to severe disc space narrowing. 3. Grade 1 anterolisthesis of C3 relative to C4 of 2.5 mm. 4. Carotid artery atherosclerotic disease.
--- NOTE | 2023-11-07 23:27 | XRR_ITS ---
PROCEDURE INFORMATION: Exam: XR Chest Exam date and time: 11/07/2023 11:51 PM Age: 77 years old Clinical indication: Injury or trauma; Fall; Other: Pain TECHNIQUE: Imaging protocol: Radiologic exam of the chest. Views: 1 view. COMPARISON: CT chest abdpel w/*[id number] 11/16/2021 11:18 AM FINDINGS: Lungs: Emphysematous changes. Left lower lobe atelectasis. Pleural spaces: Unremarkable. No pleural effusion. No pneumothorax. Heart/Mediastinum: Cardiomegaly. Bones/joints: Unremarkable. XR/XR chest 1V portable [id number] IMPRESSION: 1. Cardiomegaly. 2. Emphysematous changes. 3. Left lower lobe atelectasis.
--- NOTE | 2023-11-07 23:28 | ECG_ITS ---
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 Measurements Intervals Adams Rate: 66 P: -55 MO: 276 QRS: 26 QRSD: 118 T: 49 QT: 429 QTc: 452 Interpretive Statements SINUS RHYTHM WITH FIRST DEGREE AV BLOCK MODERATE INTRAVENTRICULAR CONDUCTION DELAY [110+ ms QRS DURATION] Compared to ECG 09/21/2018 11:22:14 First degree AV block now present Intraventricular conduction delay now present Electronically Signed On 11-08-2023 20:37:58 CDT by Elis Banuelos M.D. [id number]
--- NOTE | 2023-11-07 23:37 | ED_ITS ---
HPI - Fall 2 General: Chief Complaint: Fall Stated Complaint: AMS/ Fall Time Seen by Provider: 11/07/23 23:27 History of Present Illness: Patient presents to the ER after having a fall. This fall was about at 930 tonight in his bathroom. Patient does not remember the fall and claims to have no head pain or pain anywhere other than his left elbow. He does have some skin tears on his left elbow but he has good range of motion. Patient is alert and oriented but is unsure sure of the actual year otherwise alert coherent and can answer questions appropriately. 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, of the knee Surgical History History of revision of total replacement of hip joint Revision of right total hip arthroplasty History of arthroscopic knee surgery Hx of tonsillectomy History of total colectomy History of total replacement of both hip joints Hx of shoulder surgery Arthroscopic right shoulder surgery Hx of arthroscopy of right knee Family History Other Diabetes Lung cancer Social History Smoking and tobacco/nicotine status: former use of tobacco/nicotine Quit status (tobacco/nicotine): has quit using Year quit tobacco: 1972 Former quit date comment: 1 pack per day for 5 years Alcohol intake: never Substance/Drug Use: never Lives independently: Yes Household members: spouse Marital status: Number of children: 3 Pets and animals: No Physical Exam 2 Const: COMMON NORMALS: no acute distress, average body habitus, no limitations, healthy appearing, alert and well nourished HENMT: COMMON NORMALS: normocephalic, atraumatic, hearing grossly normal bilaterally, external ears normal, Normal external nose present and moist oral mucous membranes HEAD & SCALP: normocephalic and atraumatic NOSE: Normal external nose present EXTERNAL EAR: Yes external ears normal Eye: COMMON NORMALS: Equal, round and reactive pupils present, EOMs intact bilaterally, conjunctivae normal and no scleral icterus CONJUNCTIVA: Yes conjunctivae normal PUPIL: Yes Equal, round and reactive pupils present Neck/C-Spine: COMMON NORMALS: full ROM, no lymphadenopathy, supple, no meningeal signs, no JVD and Thyroid normal THYROID: Thyroid normal Chest: COMMONS NORMALS: normal inspection of the chest and normal palpation of entire chest wall Resp: COMMON NORMALS: normal respiratory effort, No retractions, No use of accessory muscles and clear to auscultation bilaterally AUSCULTATION: clear to auscultation bilaterally Cardio: COMMON NORMALS: no JVD, regular rate, regular rhythm, S1 normal heart sound present, S2 normal heart sound present, No gallops present (Cardio), No clicks present (Cardio), No murmurs present (Cardio) and No rub (Cardio) R ATE: regular rate RHYTHM: regular rhythm HEART SOUNDS: S1 normal heart sound present and S2 normal heart sound present GI: COMMON NORMALS: Normal to inspection, nondistended, normoactive bowel sounds present, Soft to palpation, non-tender, No hepatosplenomegaly present and no masses PALPATION: Yes Soft to palpation and Yes No hepatosplenomegaly present Neuro: SENSORIUM/ORIENTATION: Yes alert MENINGEAL SIGNS: Yes no meningeal signs Skin: NARRATIVE SKIN EXAM: Multiple superficial skin tears on left elbow region Course 2 Vital Signs: Vital signs: Vital Signs Pulse Rate 62 11/08/23 01:27 Respiratory Rate 16 11/08/23 01:27 Blood Pressure 104/61 11/08/23 01:27 Pulse Oximetry 90 11/08/23 01:27 Oxygen Delivery Me thod Room Air 11/08/23 01:27 MDM - Fall Medical Decision Making CT of cervical spine, head and left elbow was obtained, no fractures chest x-ray was negative for acute changes, lab work was positive for ethanol of 332, potassium 3.2, otherwise unremarkable. Patient's presented to the bedside patient stated he is ready to go home. These findings were discussed with him and patient be discharged home. Medical Records I reviewed the patient's medical records. Lab Data I reviewed the patient's lab results. 11/07/23 23:40 11/07/23 23:40 Radiology Impressions Cervical Spine CT 11/07/23 23:25 IMPRESSION: 1. Negative for fracture or dislocation. 2. Multilevel mid to lower cervical spine moderate to severe disc space narrowing. 3. Grade 1 anterolisthesis of C3 relative to C4 of 2.5 mm. 4. Carotid artery atherosclerotic disease. Head CT 11/07/23 23:25 IMPRESSION: 1. Negative for intracranial hemorrhage or mass effect. 2. Moderate diffuse white matter disease likely reflecting chronic microvascular ischemic changes. Chest X-Ray 11/07/23 23:27 IMPRESSION: 1. Cardiomegaly. 2. Emphysematous changes. 3. Left lower lobe atelectasis. Elbow X-Ray 11/07/23 23:38 IMPRESSION: 1. Small joint effusion with a suspected lateral radial head fracture, CT could further characterize this. 2. Severe tricompartmental osteoarthritis of the elbow. 3. Distal triceps tendon degenerative calcification. Elbow CT 11/08/23 00:06 IMPRESSION: 1. Negative for fracture or dislocation, suspected fracture on comparison elbow radiograph reflects productive degenerative changes. 2. Moderate to severe osteoarthritis of the elbow. Laboratory Results WBC 5.82 10^3/uL (3.29-11.43) 11/07/23 23:40 RBC 3.77 10^6/uL (3.85-5.65) L 11/07/23 23:40 Hgb 12.10 g/dL (11.27-16.99) 11/07/23 23:40 Hct 36.2 % (37-53) L 11/07/23 23:40 MCV 96.0 fl (82-101) 11/07/23 23:40 MCH 32.1 pg (27-33) 11/07/23 23:40 MCHC 33.4 g/dL (30-55) 11/07/23 23:40 RDW 13.7 % (12.1-15.1) 11/07/23 23:40 Plt Count 145 10^3/cmm (157-399) L 11/07/23 23:40 MPV 8.9 fL (7.4-10.4) 11/07/23 23:40 Neut % (Auto) 56.8 % 11/07/23 23:40 Lymph % (Auto) 29.0 % 11/07/23 23:40 Maries % (Auto) 11.5 % 11/07/23 23:40 Eos % (Auto) 1.9 % 11/07/23 23:40 Baso % (Auto) 0.5 % 11/07/23 23:40 Neut # (Auto) 3.30 10^3/uL (1.8-7.7) 11/07/23 23:40 Lymph # (Auto) 1.7 10^3/uL (0.8-4.8) 11/07/23 23:40 Maries # (Auto) 0.7 10^3/uL (0.2-0.9) 11/07/23 23:40 Eos # (Auto) 0.1 10^3/uL (0.0-0.8) 11/07/23 23:40 Baso # (Auto) 0.0 10^3/uL (0.0-0.1) 11/07/23 23:40 Nucleated RBC % (auto) 0 % 11/07/23 23:40 Nucleated RBCs # 0.0 /100WBC 11/07/23 23:40 Sodium 142 mmol/L (136-145) 11/07/23 23:40 Potassium 3.2 mmol/L (3.5-5.1) L 11/07/23 23:40 Chloride 102 mmol/L (98-107) 11/07/23 23:40 Carbon Dioxide 23 mmol/L (22-29) 11/07/23 23:40 Anion Gap 20.2 (5-19) H 11/07/23 23:40 BUN 15 mg/dL (8-23) 11/07/23 23:40 Creatinine 1.0 mg/dL (0.7-1.2) 11/07/23 23:40 GFR Calculation Not Reportable 11/07/23 23:40 Glucose 113 mg/dL (65-115) 11/07/23 23:40 Calculated Osmolality 296 mOsm/kg (285-295) H 11/07/23 23:40 Calcium 8.5 mg/dL (8.5-10.5) 11/07/23 23:40 Total Bilirubin 0.2 mg/dL (0.15-1.2) 11/07/23 23:40 AST 21 U/L (0-40) 11/07/23 23:40 ALT 16 U/L (0-41) 11/07/23 23:40 Alkaline Phosphatase 70 U/L (40-130) 11/07/23 23:40 Troponin T Baseline 26 ng/L (0-15) H 11/07/23 23:40 Troponin T 120 Minute 24.07 ng/L (0-15) H 11/08/23 01:24 Delta Troponin T -1.93 ABS# (0-10) L 11/08/23 01:24 Total Protein 6.7 g/dL (6.6-8.7) 11/07/23 23:40 Albumin 3.8 g/dL (3.5-5.2) 11/07/23 23:40 Globulin 2.9 g/dL (1.3-4.6) 11/07/23 23:40 Urine Color Yellow (Yellow) 11/08/23 00:56 Urine Appearance Clear (CLEAR) 11/08/23 00:56 Urine pH 5 (5-7) 11/08/23 00:56 Ur Specific [place] 1.005 (1.005-1.030) 11/08/23 00:56 Urine Protein Neg (Negative) 11/08/23 00:56 Urine Glucose (UA) Norm (Normal) 11/08/23 00:56 Urine Ketones Negative (Negative) 11/08/23 00:56 Urine Blood Neg (Negative) 11/08/23 00:56 Urine Nitrate Negative 11/08/23 00:56 Urine Bilirubin Neg (Negative) 11/08/23 00:56 Urine Urobilinogen Neg mg/dL (Negative) 11/08/23 00:56 Ur Leukocyte Esterase Negative (Negative) 11/08/23 00:56 Urine Opiates Screen Negative ng/mL (Negative) 11/08/23 00:56 Ur Barbiturates Screen Negative ng/mL (Negative) 11/08/23 00:56 Ur Phencyclidine Scrn Negative ng/mL (Negative) 11/08/23 00:56 Ur Amphetamines Screen Negative ng/mL (Negative) 11/08/23 00:56 U Benzodiazepines Scrn Negative ng/mL (Negative) 11/08/23 00:56 Urine Cocaine Screen Negative ng/mL (Negative) 11/08/23 00:56 U Marijuana (THC) Screen Negative ng/mL (Negative) 11/08/23 00:56 Ethyl Alcohol 332 mg/dL (0-10) H* 11/07/23 23:40 All radiology interpretation(s) finalized by discharge Discharge Plan Discharge Patient Disposition: Home Clinical Impression: Alcohol intoxication, Fall, Contusion of elbow, left, Skin tear of left upper extremity Condition: Stable Prescriptions: No Action diphenoxylate-atropine [Lomotil] 2.5-0.025 mg tablet 2 tab PO TID atorvastatin 40 mg tablet 40 mg PO DAILY aspirin [Adult Low Dose Aspirin] 81 mg tablet,delayed release (DR/EC) 81 mg PO DAILY fluticasone propionate [Flonase Allergy Relief] 50 mcg/actuation spray,suspension 1 spray INTRANASAL BID cinnamon bark [Cinnamon] 500 mg capsule 2,000 mg PO DAILY calcium carbonate [Calcium 500] 500 mg calcium (1,250 mg) tablet 500 mg PO DAILY cholecalciferol (vitamin D3) 1,000 unit capsule 1,000 unit PO DAILY zinc 50 mg tablet 50 mg PO DAILY amlodipine [Norvasc] 5 mg tablet 7.5 mg PO DAILY methylprednisolone acetate [Depo-Medrol] 40 mg/mL suspension 40 mg Infiltration ONCE Qty: 1 0RF methylprednisolone acetate [Depo-Medrol] 80 mg/mL suspension 80 mg Infiltration ONCE Qty: 1 0RF bupivacaine (PF) 0.25 % (2.5 mg/mL) solution 2 ml Infiltration ONCE Qty: 1 0RF (DME) right cmc brace See Rx Instructions .Route .MEDSUPPLY Qty: 1 0RF Rx Instructions: As directed celecoxib [Celebrex] 200 mg capsule 200 mg PO DAILY PRN (Reason: pain) Qty: 30 0RF multivitamin Tablet 1 tab PO DAILY cyanocobalamin (vitamin B-12) 1,000 mcg/mL solution 1,000 mcg IM Q42D Rx Instructions: 1 ml IM every 6 weeks Discharge Orders: Discharge ED (Routine); Ordered 11/08/23 Ordered By: Manjinder Louis Referrals: Amirah Mckeon PA [Primary Care Provider] - 1 week Patient Instructions: Alcohol Intoxication, Skin Tear (ED) Activity Restrictions/Additional Instructions: The x-rays and CT scans were negative for acute changes, you have skin tears on your left elbow please keep the dressing clean and dry and change as needed for these. Here blood work showed you are very intoxicated and your potassium is mildly low. Please limit your alcohol intake from here on out. Coding Level of Care Code ED Computer Numerical Control Operator for Harris Terrell
--- NOTE | 2023-11-07 23:38 | XRR_ITS ---
PROCEDURE INFORMATION: Exam: XR Left Elbow Exam date and time: 11/07/2023 11:52 PM Age: 77 years old Clinical indication: Injury or trauma; Fall; Laceration; Elbow; Left; Additional info: Fall pain TECHNIQUE: Imaging protocol: Radiologic exam of the left elbow. Views: 3 or more views. COMPARISON: No relevant prior studies available. FINDINGS: Bones/joints: Small joint effusion with a suspected lateral radial head fracture, CT could further characterize this. Severe tricompartmental osteoarthritis of the elbow. Distal triceps tendon degenerative calcification. Soft tissues: Normal. XR/XR elbow LT min 3V* [id number] IMPRESSION: 1. Small joint effusion with a suspected lateral radial head fracture, CT could further characterize this. 2. Severe tricompartmental osteoarthritis of the elbow. 3. Distal triceps tendon degenerative calcification.
[2023-11-07 23:52] LABS: Basophils % 0.5 %; Eosinophils # 0.1 10^3/uL (0.0-0.8); Eosinophils % 1.9 %; Hematocrit 36.2 % (37-53); Lymphocytes # 1.7 10^3/uL (0.8-4.8); Mean Corpuscular HGB Conc 33.4 g/dL (30-55); Mean Corpuscular Hemoglobin 32.1 pg (27-33); Mean Platelet Volume 8.9 fL (7.4-10.4); Monocytes # 0.7 10^3/uL (0.2-0.9); Monocytes % 11.5 %; Neutrophils % 56.8 %; Nucleated Red Blood Cells % 0 %; Platelet Count 145 10^3/cmm (157-399); Red Blood Count 3.77 10^6/uL (3.85-5.65); Red Cell Distribution Width 13.7 % (12.1-15.1); White Blood Count 5.82 10^3/uL (3.29-11.43)
--- NOTE | 2023-11-08 00:06 | CTR_ITS ---
PROCEDURE INFORMATION: Exam: CT Left Upper Extremity Without Contrast, Elbow Exam date and time: 11/08/2023 12:13 AM Age: 77 years old Clinical indication: Abnormal findings; Abnormal imaging study of the limbs; Elbow; Additional info: Fall possible radial head FX on xray TECHNIQUE: Imaging protocol: Computed tomography of the left upper extremity without contrast. Exam focused on the elbow. Radiation optimization: All CT scans at this facility use at least one of these dose optimization techniques: automated exposure control; mA and/or kV adjustment per patient size (includes targeted exams where dose is matched to clinical indication); or iterative reconstruction. COMPARISON: CR (UP EXM, ) 11/07/2023 11:52 PM RADIATION DOSE METRICS: Total DLP (mGy-cm): 91 FINDINGS: Bones/joints: Moderate to severe osteoarthritis of the elbow. Soft tissues: Normal. CT/CT elbow LT wo con* [id number] IMPRESSION: 1. Negative for fracture or dislocation, suspected fracture on comparison elbow radiograph reflects productive degenerative changes. 2. Moderate to severe osteoarthritis of the elbow.
[2023-11-08 00:08] LABS: Troponin(5th) Baseline 26 ng/L (0-15)
[2023-11-08 00:10] LABS: Alanine Aminotransferase 16 U/L (0-41); Albumin Level 3.8 g/dL (3.5-5.2); Alkaline Phosphatase 70 U/L (40-130); Anion Gap 20.2 (5-19); Aspartate Amino Transferase 21 U/L (0-40); Blood Urea Nitrogen 15 mg/dL (8-23); Calcium 8.5 mg/dL (8.5-10.5); Carbon Dioxide 23 mmol/L (22-29); Chloride 102 mmol/L (98-107); Globulin 2.9 g/dL (1.3-4.6); Glucose 113 mg/dL (65-115); Osmolality Calculated 296 mOsm/kg (285-295); Potassium 3.2 mmol/L (3.5-5.1); Sodium 142 mmol/L (136-145); Total Bilirubin 0.2 mg/dL (0.15-1.2); Total Protein 6.7 g/dL (6.6-8.7)
[2023-11-08 00:11] LABS: Alcohol Level 332 mg/dL (0-10)
[2023-11-08 00:25] VITALS: PULSE 67; RESP 19; O2SAT 92
[2023-11-08 01:09] LABS: Add Urine Microscopic? NO; Charge for UA Resulting for Rev
[2023-11-08 01:14] LABS: Bilirubin Urine Neg (Negative); Blood Urine Neg (Negative); Glucose Urine UA Norm (Normal); Ketones Urine Negative (Negative); Leukocyte Esterase Urine Negative (Negative); Nitrate Urine Negative; Protein Urine Neg (Negative); Specific Gravity, Urine 1.005 (1.005-1.030); Urine Appearance Clear (CLEAR); Urine Color Yellow (Yellow); Urobilinogen Urine Neg (Negative); pH Urine 5 (5-7)
[2023-11-08 01:19] LABS: Amphetamines Screen Urine Negative (Negative); Barbiturates Screen Urine Negative (Negative); Benzodiazepines Screen Urine Negative (Negative); Cocaine Screen Urine Negative (Negative); Opiate Screen Urine Negative (Negative); PCP Screen Urine Negative (Negative); THC Screen Urine Negative (Negative)
[2023-11-08 01:27] VITALS: BP 104/61; PULSE 62; RESP 16; O2SAT 90
[2023-11-08 01:57] LABS: Troponin 5 2HR 24.07 ng/L (0-15)
[2023-11-08 01:58] LABS: Troponin 5 2HR Delta -1.93 ABS# (0-10)
[2023-11-08 02:33] VITALS: BP 104/61; PULSE 62; RESP 16; TEMP 37; O2SAT 90
== END 2023-11-08 02:35 | disposition home or self-care (01) ==
PROVIDERS: Emergency Provider Emergency Medicine; PCP Physician Assistant
DX: S50.02XA Contusion of left elbow, initial encounter (principal); S51.012A Laceration without foreign body of left elbow, initial encounter; F10.129 Alcohol abuse with intoxication, unspecified; Y90.8 Blood alcohol level of 240 mg/100 ml or more; Z79.82 Long term (current) use of aspirin; Z87.891 Personal history of nicotine dependence; E11.22 Type 2 diabetes mellitus with diabetic chronic kidney disease; I12.9 Hypertensive chronic kidney disease with stage 1 through stage 4 chronic kidney disease, or unspecified chronic kidney disease; N18.9 Chronic kidney disease, unspecified; H35.30 Unspecified macular degeneration; E78.5 Hyperlipidemia, unspecified; W19.XXXA Unspecified fall, initial encounter; Y92.002 Bathroom of unspecified non-institutional (private) residence as the place of occurrence of the external cause
CPT/HCPCS: 70450; 71045; 72125; 73080; 73200; 80053; 80306; 80307; 81003; 84484; 85025; 93005; 99285

== ENCOUNTER → 2023-12-03 08:04 | Outpatient (BNVA) | payer MEDICARE, SELFPAY | PROVIDERS: PCP Physician Assistant; Visit Provider Podiatrist Foot & Ankle Surgery | DX: E11.42 Type 2 diabetes mellitus with diabetic polyneuropathy (principal); L60.3 Nail dystrophy; I73.9 Peripheral vascular disease, unspecified; Z79.84 Long term (current) use of oral hypoglycemic drugs | CPT/HCPCS: 11721 ==

== ENCOUNTER 2024-02-20 12:37 | Emergency (ER) | payer MEDICARE, SELFPAY ==
[2024-02-20] VITALS (20 sets, daily range): BP systolic 108–149; BP diastolic 56–79; PULSE 55–82; RESP 12–25; TEMP 36.2–36.8; O2SAT 92–99; BMI 26.6
--- NOTE | 2024-02-20 | XR_ITS ---
WS: [id number] XR hip LT 2-3V wo/w pel* [id number] REASON FOR EXAM: DAVID PICS FINDINGS: The dislocated femoral component of the total left hip arthroplasty was reduced to normal position in the acetabular cup. XR/XR hip LT 2-3V wo/w pel* [id number] IMPRESSION: Reduction of left hip prosthesis dislocation.
--- NOTE | 2024-02-20 12:40 | XRR_ITS ---
PROCEDURE INFORMATION: Exam: XR Left Hip Exam date and time: 02/20/2024 1:37 PM Age: 78 years old Clinical indication: Hip pain; Left hip; Prior surgery; Surgery date: 6+ months; Surgery type: Hip replacement TECHNIQUE: Imaging protocol: Radiologic exam of the left hip. Views: 2 or 3 views hip with pelvis when performed. COMPARISON: CT angio abdomen pelvis [id number] 10/01/2023 8:20 AM FINDINGS: Bones/joints: Left hip prosthesis is noted and the femoral component is dislocated superiorly. Soft tissues: Unremarkable. XR/XR hip LT 2-3V wo/w pel* [id number] IMPRESSION: Left hip prosthesis dislocation
--- NOTE | 2024-02-20 12:45 | ED_ITS ---
HPI - General Adult 2 General: Chief complaint: Extremity Injury, Lower Stated complaint: left hip dislocation Time Seen by Provider: 02/20/24 12:40 History of Present Illness: 78-year-old male with history of previou s left hip arthroplasty. He was getting a bucket down from a shelf bent over states he suddenly found himself laying on the ground with severe left hip pain. He is hold thing his left hip and a similarly flexed position on arrival with severe pain unable to move. He has previously had dislocation of the hip. He denies any other trauma did not strike his head. He has no trauma about the head. He is otherwise awake and alert. Associated symptoms: Deny chest pain, dyspnea or rash Related Data Home Medications Medication Instructions Recorded Confirmed aspirin 81 mg tablet,delayed 81 mg PO DAILY 05/20/19 02/20/24 release (Adult Low Dose Aspirin) atorvastatin 40 mg tablet 40 mg PO DAILY 05/20/19 02/20/24 cholecalciferol (vitamin D3) 25 1,000 unit PO DAILY 05/20/19 02/20/24 mcg (1,000 unit) capsule cinnamon bark 500 mg capsule 2,000 mg PO DAILY 05/20/19 02/20/24 (Cinnamon) diphenoxylate-atropine 2.5 2 tab PO TID 05/20/19 02/20/24 mg-0.025 mg tablet (Lomotil) fluticasone propionate 50 1 spray intranasal BID 05/20/19 02/20/24 mcg/actuation nasal spray,suspension (Flonase Allergy Relief) multivitamin 1 tab PO DAILY 12/22/20 02/20/24 amlodipine 5 mg tablet (Norvasc) 7.5 mg PO DAILY 08/16/22 02/20/24 Previous Rx's Medication Instructions Recorded right cmc brace #1 ea 06/04/22 celecoxib 200 mg capsule (Celebrex) 200 mg PO DAILY PRN pain #30 caps 11/28/22 tramadol 50 mg tablet 50 mg PO Q6H PRN pain 7 days #28 02/20/24 tabs Allergies Allergy/AdvReac Type Severity Reaction Status Date / Time chlorthalidone Allergy Unknown Verified 02/20/24 12:50 lisinopril Allergy ALGY-Anaphy Verified 02/20/24 12:50 laxis metformin Allergy Unknown Verified 02/20/24 12:50 metoprolol Allergy ADR-Drowsy Verified 02/20/24 12:50 Review of Systems 2 Const: Denies: fever(s) or chills Card: Denies: chest pain Resp: Denies: dyspnea GI: Denies: abdominal pain : Denies: dysuria, urinary frequency or urinary urgency Musc: Reports: joint pain; Denies: neck pain or back pain Skin/Breast: Denies: rash PFSH ED 2 PFSH: Medical History Arthritis of carpometacarpal (CMC) joint of right thumb Vitamin B12 deficiency Macular degeneration Chronic kidney disease Benign prostatic hyperplasia Degenerative arthritis Peripheral neuropathy Ulcerative colitis Hyperlipidemia Type 2 diabetes mellitus Lumbar stenosis with neurogenic claudication Retroperitoneal lymphadenopathy AAA (abdominal aortic aneurysm) Hypertension 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, of the knee Surgical History History of revision of total replacement of hip joint Revision of right total hip arthroplasty History of arthroscopic knee surgery Hx of tonsillectomy History of total colectomy History of total replacement of both hip joints Hx of shoulder surgery Arthroscopic right shoulder surgery Hx of arthroscopy of right knee Family History Other Diabetes Lung cancer Social History Smoking and tobacco/nicotine status: former use of tobacco/nicotine Quit status (tobacco/nicotine): has quit using Year quit tobacco: 1972 Former quit date comment: 1 pack per day for 5 years Alcohol intake: never Substance/Drug Use: never Lives independently: Yes Household members: spouse Marital status: Number of children: 3 Pets and animals: No Physical Exam 2 Const: GENERAL APPEARANCE: cooperative ORIENTATION/CONSCIOUSNESS: Yes awake, Yes oriented to person, Yes oriented to place and Yes oriented to time HENMT: COMMON NORMALS: normocephalic, atraumatic and hearing grossly normal bilaterally HEAD & SCALP: normocephalic and atraumatic Resp: COMMON NORMALS: normal respiratory effort, No retractions, No use of accessory muscles and clear to auscultation bilaterally AUSCULTATION: clear to auscultation bilaterally Cardio: COMMON NORMALS: regular rate, regular rhythm and No murmurs present (Cardio) RATE: regular rate RHYTHM: regular rhythm GI: COMMON NORMALS: Soft to palpation and No hepatosplenomegaly present A USCULTATION: Yes normoactive bowel sounds PALPATION: Yes Soft to palpation, No Tenderness to palpation present (GI), No Guarding due to palpation present (GI) and Yes No hepatosplenomegaly present Extremity: COMMON NORMALS: normal to inspection, capillary refill normal, no clubbing, cyanosis or edema, no calf tenderness and no pedal edema Neuro: SENSORIUM/ORIENTATION: Yes oriented to person, Yes oriented to place and Yes oriented to time Skin: COMMON NORMALS: no rashes or lesions noted GENERAL SKIN EXAM: no rashes or lesions noted Procedures Orthopedic Joint Reduction Joint #1: Side: left Joint Reduction Location: hip Analgesia: procedural sedation Technique used: traction/counter-traction Post-reduction neuro exam: intact and no change Post-reduction vascular: intact and no change Post Reduction X-Ray Obtained: Yes Post Reduction X-Ray Results: not reduced Patient Tolerated Procedure: well Additional Comments: Ortho consultation for reduction under general anesthesia Procedural Sedation Indication: fracture/dislocation reduction ASA Class: I Preparation: color television console monitor applied, pulse oximeter, supplemental O2 applied, suction/airway equipment at bedside and IV secured Fentanyl: IV Midazolam: IV Patient Tolerated Procedure: well Complications: hypoventilation (Transient responded quickly to increased oxygen and repositioning of airway) Interventions: oxygen applied and airway repositioned Additional Comments: Patient transient hypopnea and hypoxia relieved by increased oxygen supplementation airway repositioning and verbal stimulation. Course 2 Vital Signs: Vital signs: Vital Signs Temperature 97.1 F L 02/20/24 21:00 Pulse Rate 69 02/20/24 21:00 Respiratory Rate 17 02/20/24 21:00 Blood Pressure 137/68 02/20/24 21:00 Pulse Oximetry 92 02/20/24 21:00 Oxygen Delivery Me thod Room Air 02/20/24 21:00 [facility] - General Adult Medical Decision Making X-ray shows anterior dislocation left hip. Under conscious sedation attempted reduction was unable to reduce we did get it to move some but was not able to get it completely reduced findings largely because we were not able to fully relax the muscles. We had given enough of conscious sedation we had to do some oxygen supplementation and airway positioning. At this point who conservatively given any more it could be due to history of benzo who will likely need full general anesthesia to reduce hip. Discussed with Dr. Castillo is on-call he concurs. He will take the patient to the OR to reduce under general anesthesia Medical Records I reviewed the patient's medical records. Lab Data 02/20/24 17:00 Radiology Impressions Hip/Pelvis X-Ray 02/20/24 12:40 IMPRESSION: Left hip prosthesis dislocation Hip CT 02/20/24 15:35 IMPRESSION: Dislocation of the femoral component of the left hip prosthesis Hip X-Ray 02/20/24 15:41 IMPRESSION: As above Ankle X-Ray 02/20/24 20:18 IMPRESSION: No acute osseous abnormalities. Laboratory Results Sodium 137 mmol/L (136-145) 02/20/24 17:00 Potassium 3.9 mmol/L (3.5-5.1) 02/20/24 17:00 Chloride 99 mmol/L (98-107) 02/20/24 17:00 Carbon Dioxide 28 mmol/L (22-29) 02/20/24 17:00 Anion Gap 13.9 (5-19) 02/20/24 17:00 BUN 14 mg/dL (8-23) 02/20/24 17:00 Creatinine 1.0 mg/dL (0.7-1.2) 02/20/24 17:00 GFR Calculation Not Reportable 02/20/24 17:00 Glucose 98 mg/dL (65-115) 02/20/24 17:00 Calculated Osmolality 284 mOsm/kg (285-295) L 02/20/24 17:00 Calcium 8.8 mg/dL (8.5-10.5) 02/20/24 17:00 All radiology interpretation(s) finalized by discharge Discharge Plan Discharge Patient Disposition: Placed in Observation Clinical Impression: Dislocation of internal left hip prosthesis, initial encounter Condition: Stable Prescriptions: New tramadol 50 mg tablet 50 mg PO Q6H PRN (Reason: pain) 7 Days Qty: 28 0RF Continued diphenoxylate-atropine [Lomotil] 2.5-0.025 mg tablet 2 tab PO TID atorvastatin 40 mg tablet 40 mg PO DAILY aspirin [Adult Low Dose Aspirin] 81 mg tablet,delayed release (DR/EC) 81 mg PO DAILY fluticasone propionate [Flonase Allergy Relief] 50 mcg/actuation spray,suspension 1 spray INTRANASAL BID cinnamon bark [Cinnamon] 500 mg capsule 2,000 mg PO DAILY cholecalciferol (vitamin D3) 1,000 unit capsule 1,000 unit PO DAILY amlodipine [Norvasc] 5 mg tablet 7.5 mg PO DAILY (DME) right cmc brace See Rx Instructions .Route .MEDSUPPLY Qty: 1 0RF Rx Instructions: As directed celecoxib [Celebrex] 200 mg capsule 200 mg PO DAILY PRN (Reason: pain) Qty: 30 0RF multivitamin Tablet 1 tab PO DAILY Discharge Orders: Discharge ED (Routine); Ordered 02/20/24 Ordered By: Asher Castillo Referrals: Amirah Mckeon PA [Primary Care Provider] - Asher Castillo DO [Physician] - (Dr Castillo's clinic will contact you in 2-3 days with a post operative appointment to be seen in his clinic in 2 weeks. If you do not hear from them by Saturday please contact them for an appointment.) Discharge Diet: Advance as tolerated Discharge Activity: Limit activity as instructed, Use walker/crutches as instructed and As per PT/OT instructions Patient Instructions: Opioid Safety, Post Anesthesia Care, Pain Management Activity Restrictions/Additional Instructions: Orthopedic discharge instructions: Patient may weight-bear as tolerated to the left lower extremity while in knee immobilizer Patient should wear knee immobilizer at all times okay to take the immobilizer off to shower or for hygiene however would recommend keeping knee straight at that time. Strict no excessive hip flexion past 90 degrees or excessive hip extension avoid crossing the legs or excessive external rotation of the hip Patient would recommend a hip abduction pillow to sleep and at night Ice as needed for pain and swelling Take pain medication as prescribed Continue with aspirin for blood clot prevention Follow-up in the orthopedic office in 2 weeks Contact orthopedic office for any questions or concerns Coding Level of Care Code ED Tie Inspector for [facility] Terrell
[2024-02-20] MEDS: morphine 4 mg/mL SDV 1 mL IVP (13:24)
[2024-02-20] MEDS: ondansetron 2 mg/ML SDV 2 mL 4 MG IVP (13:24)
[2024-02-20] MEDS: midazolam 1 mg/mL INJ 2 mL 6 MG IVP (15:10)
[2024-02-20] MEDS: fentaNYL 50 mcg/mL INJ 2mL 100 MCG IVP ×2 (15:10→15:22)
[2024-02-20] MEDS: midazolam 1 mg/mL INJ 2 mL (15:22)
--- NOTE | 2024-02-20 15:35 | CTR_ITS ---
PROCEDURE INFORMATION: Exam: CT Left Lower Extremity, Hip Exam date and time: 02/20/2024 5:11 PM Age: 78 years old Clinical indication: Pain; Hip; Left; Prior surgery; Surgery date: 6+ months; Additional info: Dislocation TECHNIQUE: Imaging protocol: CT of the left lower extremity without contrast was performed. Exam focused on the hip. Radiation optimization: All CT scans at this facility use at least one of these dose optimization techniques: automated exposure control; mA and/or kV adjustment per patient size (includes targeted exams where dose is matched to clinical indication); or iterative reconstruction. COMPARISON: CR XR hip LT 1V wo/w pel [id number] 02/20/2024 3:29 PM RADIATION DOSE METRICS: Total DLP (mGy-cm): 572 FINDINGS: Tubes, catheters and devices: A left-sided hip prosthesis is noted and the femoral component is dislocated superior laterally with respect to the acetabular component. There is a 2 cm long curvilinear bone fragment lying superior to the hip joint. This is felt to represent an old fracture fragment. No definite acute bony fracture can be seen. Bones/joints: See Tubes, catheters and devices finding. Soft tissues: Normal. CT/CT hip LT wo con* [id number] IMPRESSION: Dislocation of the femoral component of the left hip prosthesis
--- NOTE | 2024-02-20 15:41 | XRR_ITS ---
PROCEDURE INFORMATION: Exam: XR Left Hip Exam date and time: 02/20/2024 3:29 PM Age: 78 years old Clinical indication: Other: Attempted reduction; Prior surgery; Surgery date: 6+ months; Surgery type: Replacement; Additional info: Post reduction TECHNIQUE: Imaging protocol: Radiologic exam of the left hip. Views: 1 view hip with pelvis when performed. COMPARISON: CR XR hip LT 2-3V wo/w pel* [id number] 02/20/2024 1:37 PM FINDINGS: Bones/joints: A left hip prosthesis is noted in the femoral component remains dislocated superiorly. Soft tissues: Unremarkable. XR/XR hip LT 1V wo/w pel [id number] IMPRESSION: As above
--- NOTE | 2024-02-20 16:17 | P.ANESASSM_ITS ---
Pre-Anesthetic Assessment Height/Weight: Height 1.8 m Weight 86.636 kg Temp Pulse Resp BP Pulse Ox O2 Del Method 98.3 F 68 20 H 115/56 96 Room Air 02/20/24 12:40 02/20/24 14:22 02/20/24 15:10 02/20/24 14:22 02/20/24 15:10 02/20/24 14:22 Closed reduction Familial anesthetic complications: NOne Was Beta Ke taken within 24 hours: N/A Was Clonidine taken within 24 hours: N/A Social No alcohol and No tobacco Exam alert, oriented x 3, clear to auscultation bilaterally and regular rate & rhythm Airway Mallampati: Class III Dentition: chipped and caps CV/HEM Hypertension AAA able to achieve 4 METs Metabolic Diabetes Mellitus Anesthetic Plan ASA status: 3 Anesthesia: General Risk of > 500 ml blood loss (7ml/kg in children): No Medications/Allergies Home Medications Medication Instructions Recorded Confirmed Last Taken Type aspirin 81 mg tablet,delayed 81 mg PO DAILY 05/20/19 02/20/24 02/19/24 History release (Adult Low Dose Aspirin) atorvastatin 40 mg tablet 40 mg PO DAILY 05/20/19 02/20/24 02/19/24 History cholecalciferol (vitamin D3) 25 1,000 unit PO DAILY 05/20/19 02/20/24 1 Day Ago History mcg (1,000 unit) capsule ~06/03/19 cinnamon bark 500 mg capsule 2,000 mg PO DAILY 05/20/19 02/20/24 1 Day Ago History (Cinnamon) ~06/03/19 diphenoxylate-atropine 2.5 2 tab PO TID 05/20/19 02/20/24 02/20/24 History mg-0.025 mg tablet (Lomotil) fluticasone propionate 50 1 spray intranasal BID 05/20/19 02/20/24 1 Day Ago History mcg/actuation nasal ~06/03/19 spray,suspension (Flonase Allergy Relief) multivitamin 1 tab PO DAILY 12/22/20 02/20/24 02/20/24 History right cmc brace #1 ea 06/04/22 02/20/24 Unknown Rx amlodipine 5 mg tablet (Norvasc) 7.5 mg PO DAILY 08/16/22 02/20/24 02/19/24 History celecoxib 200 mg capsule (Celebrex) 200 mg PO DAILY PRN pain #30 caps 11/28/22 02/20/24 02/19/24 Rx Allergies Allergy/AdvReac Type Severity Reaction Status Date / Time chlorthalidone Allergy Unknown Verified 02/20/24 12:50 lisinopril Allergy ALGY-Anaphy Verified 02/20/24 12:50 laxis metformin Allergy Unknown Verified 02/20/24 12:50 metoprolol Allergy ADR-Drowsy Verified 02/20/24 12:50 morphine Allergy ADR-Halluci Verified 02/20/24 12:50 nating [facility] Anesthesia Medical History Arthritis of carpometacarpal (CMC) joint of right thumb Vitamin B12 deficiency Macular degeneration Chronic kidney disease Benign prostatic hyperplasia Degenerative arthritis Peripheral neuropathy Ulcerative colitis Hyperlipidemia Type 2 diabetes mellitus Lumbar stenosis with neurogenic claudication Retroperitoneal lymphadenopathy AAA (abdominal aortic aneurysm) Hypertension 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, of the knee Surgical History History of revision of total replacement of hip joint Revision of right total hip arthroplasty History of arthroscopic knee surgery Hx of tonsillectomy History of total colectomy History of total replacement of both hip joints Hx of shoulder surgery Arthroscopic right shoulder surgery Hx of arthroscopy of right knee Family History Other Diabetes Lung cancer Social History Smoking and tobacco/nicotine status: former use of tobacco/nicotine Quit status (tobacco/nicotine): has quit using Year quit tobacco: 1972 Former quit date comment: 1 pack per day for 5 years Alcohol intake: never Substance/Drug Use: never Lives independently: Yes Household members: spouse Marital status: Number of children: 3 Pets and animals: No Data Anesthesia Cardiac Studies: No Data to Display
--- NOTE | 2024-02-20 17:01 | P.CONIM_ITS ---
Providers/Reason For Consult 2 Consulting Physician/Specialty*: Asher Castillo DO/orthopedic surgery Reason for Consult*: Left hip periprosthetic dislocation Requesting Physician: Dr. Lopez Primary Care Provider: Amirah Mckeon History of Present Illness History of Present Illness Donta Gomes is a 78 year old male who sustained a twist and fall and sustained a left hip periprosthetic dislocation. History reveals this was replaced multiple years ago according to the patient Bella remember the exact time. Review of his history does show that there was a additional left hip periprosthetic dislocation back in 2020 and was reduced by Dr. Corona he had had an uncomplicated course since then. Today he presented had a periprosthetic hip dislocation multiple attempts were made in the emergency department were unsuccessful orthopedics was consulted for evaluation treatment recommendations patient states he has some pain in his ankle and then some in his hip but no other significant discomfort or pain elsewhere appreciated denies any loss of consciousness. Review of Systems 2 General: Reports: 10 or more systems reviewed and unremarkable except in HPI and below Medications/Allergies Home Medications Medication Instructions Recorded Confirmed Last Taken Type aspirin 81 mg tablet,delayed 81 mg PO DAILY 05/20/19 02/20/24 02/19/24 History release (Adult Low Dose Aspirin) atorvastatin 40 mg tablet 40 mg PO DAILY 05/20/19 02/20/24 02/19/24 History cholecalciferol (vitamin D3) 25 1,000 unit PO DAILY 05/20/19 02/20/24 1 Day Ago History mcg (1,000 unit) capsule ~06/03/19 cinnamon bark 500 mg capsule 2,000 mg PO DAILY 05/20/19 02/20/24 1 Day Ago History (Cinnamon) ~06/03/19 diphenoxylate-atropine 2.5 2 tab PO TID 05/20/19 02/20/24 02/20/24 History mg-0.025 mg tablet (Lomotil) fluticasone propionate 50 1 spray intranasal BID 05/20/19 02/20/24 1 Day Ago History mcg/actuation nasal ~06/03/19 spray,suspension (Flonase Allergy Relief) multivitamin 1 tab PO DAILY 12/22/20 02/20/24 02/20/24 History right cmc brace #1 ea 06/04/22 02/20/24 Unknown Rx amlodipine 5 mg tablet (Norvasc) 7.5 mg PO DAILY 08/16/22 02/20/24 02/19/24 History celecoxib 200 mg capsule (Celebrex) 200 mg PO DAILY PRN pain #30 caps 11/28/22 02/20/24 02/19/24 Rx Allergies Allergy/AdvReac Type Severity Reaction Status Date / Time chlorthalidone Allergy Unknown Verified 02/20/24 12:50 lisinopril Allergy ALGY-Anaphy Verified 02/20/24 12:50 laxis metformin Allergy Unknown Verified 02/20/24 12:50 metoprolol Allergy ADR-Drowsy Verified 02/20/24 12:50 PFSH Acute 2 PFSH: Medical History Arthritis of carpometacarpal (CMC) joint of right thumb Vitamin B12 deficiency Macular degeneration Chronic kidney disease Benign prostatic hyperplasia Degenerative arthritis Peripheral neuropathy Ulcerative colitis Hyperlipidemia Type 2 diabetes mellitus Lumbar stenosis with neurogenic claudication Retroperitoneal lymphadenopathy AAA (abdominal aortic aneurysm) Hypertension 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, of the knee Surgical History History of revision of total replacement of hip joint Revision of right total hip arthroplasty History of arthroscopic knee surgery Hx of tonsillectomy History of total colectomy History of total replacement of both hip joints Hx of shoulder surgery Arthroscopic right shoulder surgery Hx of arthroscopy of right knee Family History Other Diabetes Lung cancer Social History Smoking and tobacco/nicotine status: former use of tobacco/nicotine Quit status (tobacco/nicotine): has quit using Year quit tobacco: 1972 Former quit date comment: 1 pack per day for 5 years Alcohol intake: never Substance/Drug Use: never Lives independently: Yes Household members: spouse Marital status: Number of children: 3 Pets and animals: No Vitals/I&O/Wt Last Vital Signs Temp 98.3 F 02/20/24 12:40 Pulse 68 02/20/24 14:22 Resp 20 H 02/20/24 15:10 BP 115/56 02/20/24 14:22 Pulse Ox 96 02/20/24 15:10 O2 Del Method Room Air 02/20/24 14:22 Weight last 48 hrs Weight 191 lb Physical Exam 2 Narrative: Examination of the left lower extremity demonstrates patient is tender to palpation left hip. His left hip is shortened and externally rotated compared to the contralateral extremity. Patient is able to wiggle toes plantarflex and dorsiflex ankle sensations intact light touch distally. He does have some mild tenderness over the lateral ankle ligamentous complex no significant tenderness palpation over the medial or lateral malleolus. Patient is able to tolerate mild gentle hip range of motion and logroll but does have appreciable discomfort at the hip at this time. Distal pulses are palpable left lower extremities warm well-perfused. Secondary survey examination unremarkable for any pathology to the bilateral upper extremity joints and right lower extremity joints. Data 02/20/24 17:00 Xray Ortho: Radiologist's impression: Ordering Provider/Ordering MD: Arpan Lopez DO Date of Service: 02/20/24 Procedure(s): CT hip LT wo con* [id number] Accession Number(s): [id number] Report Number: [id number] PROCEDURE INFORMATION: Exam: CT Left Lower Extremity, Hip Exam date and time: 02/20/2024 5:11 PM Age: 78 years old Clinical indication: Pain; Hip; Left; Prior surgery; Surgery date: 6+ months; Additional info: Dislocation TECHNIQUE: Imaging protocol: CT of the left lower extremity without contrast was performed. Exam focused on the hip. Radiation optimization: All CT scans at this facility use at least one of these dose optimization techniques: automated exposure control; mA and/or kV adjustment per patient size (includes targeted exams where dose is matched to clinical indication); or iterative reconstruction. COMPARISON: CR XR hip LT 1V wo/w pel [id number] 02/20/2024 3:29 PM RADIATION DOSE METRICS: Total DLP (mGy-cm): 572 FINDINGS: Tubes, catheters and devices: A left-sided hip prosthesis is noted and the femoral component is dislocated superior laterally with respect to the acetabular component. There is a 2 cm long curvilinear bone fragment lying superior to the hip joint. This is felt to represent an old fracture fragment. No definite acute bony fracture can be seen. Bones/joints: See Tubes, catheters and devices finding. Soft tissues: Normal. CT/CT hip LT wo con* [id number] IMPRESSION: Dislocation of the femoral component of the left hip prosthesis Ordering Provider/Ordering MD: Arpan Lopez DO Date of Service: 02/20/24 Procedure(s): XR hip LT 2-3V wo/w pel* [id number] Accession Number(s): [id number] Report Number: [id number] PROCEDURE INFORMATION: Exam: XR Left Hip Exam date and time: 02/20/2024 1:37 PM Age: 78 years old Clinical indication: Hip pain; Left hip; Prior surgery; Surgery date: 6+ months; Surgery type: Hip replacement TECHNIQUE: Imaging protocol: Radiologic exam of the left hip. Views: 2 or 3 views hip with pelvis when performed. COMPARISON: CT angio abdomen pelvis [id number] 10/01/2023 8:20 AM FINDINGS: Bones/joints: Left hip prosthesis is noted and the femoral component is dislocated superiorly. Soft tissues: Unremarkable. XR/XR hip LT 2-3V wo/w pel* [id number] IMPRESSION: Left hip prosthesis dislocation Ordering Provider/Ordering MD: Arpan Lopez DO Date of Service: 02/20/24 Procedure(s): XR hip LT 1V wo/w pel [id number] Accession Number(s): [id number] Report Number: [id number] PROCEDURE INFORMATION: Exam: XR Left Hip Exam date and time: 02/20/2024 3:29 PM Age: 78 years old Clinical indication: Other: Attempted reduction; Prior surgery; Surgery date: 6+ months; Surgery type: Replacement; Additional info: Post reduction TECHNIQUE: Imaging protocol: Radiologic exam of the left hip. Views: 1 view hip with pelvis when performed. COMPARISON: CR XR hip LT 2-3V wo/w pel* [id number] 02/20/2024 1:37 PM FINDINGS: Bones/joints: A left hip prosthesis is noted in the femoral component remains dislocated superiorly. Soft tissues: Unremarkable. XR/XR hip LT 1V wo/w pel [id number] IMPRESSION: As above A&P Assessment and plan (1) Dislocation of internal left hip prosthesis, initial encounter: Plan Plan to take to the OR emergently today for left hip closed reduction versus possible open reduction X-rays reviewed Patient's been n.p.o. Anesthesia is been consulted MDM: Patient has had a previous left total hip replacement years ago. In 2020 did have a periprosthetic dislocation reduced by Dr. Corona. He subsequently has a new dislocation today after a twisting of his ankle and fallen. He has not had ankle x-rays I will obtain ankle x-rays in the OR today. At this point in time patient has had multiple attempts at a left hip closed reduction emergency department were unsuccessful orthopedics was consulted for evaluation and treatment recommendations. At this point in time we talked about his treatment options as far as nonoperative and operative invention. At this point time given recurrent hip dislocation would recommend surgical intervention with close reduction versus open reduction. We detailed out the ins and outs procedure risk benefits complication alternatives surgery and through shared decision- making patient elects proceed with surgical intervention. All questions been answered at this time. Risk of surgery include but not limited to make a better make it worse, persistent dislocation, open procedure, possible infection, recurrent instability. Understanding risk of surgery patient like to proceed all questions answered at this time. The patient gets hip reduced close plan will be for immobilizer with the knee weightbearing as tolerated hip precautions and hopefully discharge later this evening. Patient and understand agree with current plan. Questions answered Coding Level of Care Code Acute Code for Chg Fwd Diagnoses Dislocation of internal left hip prosthesis, initial encounter T84.021A Time Spent (min) 45
[2024-02-20 17:31] LABS: Anion Gap 13.9 (5-19); Blood Urea Nitrogen 14 mg/dL (8-23); Calcium 8.8 mg/dL (8.5-10.5); Carbon Dioxide 28 mmol/L (22-29); Chloride 99 mmol/L (98-107); Creatinine Clr Calc Pharmacy 70.9639; Glucose 98 mg/dL (65-115); Osmolality Calculated 284 mOsm/kg (285-295); Potassium 3.9 mmol/L (3.5-5.1); Sodium 137 mmol/L (136-145)
[2024-02-20] MEDS: sodium chloride 0.9% 1,000 ML 30 ML IV (19:20)
--- NOTE | 2024-02-20 20:16 | W.PM.BPON ---
Date of Procedure: 02/20/2024 Surgeon: Asher Castillo DO Shearing Shed Hand(s): None Procedure(s) performed: Left hip periprosthetic dislocation closed reduction Findings of the procedure(s): Patient was found to have a left hip anterior superior periprosthetic hip dislocation. Patient underwent procedure as planned without issues or complications was able to achieve a successful closed reduction of the left hip. Patient was placed in the immobilizer as well as hip abduction pillow and was taken to PACU in stable condition. He will discharge home later today. Understands his hip precautions and can weight-bear as tolerated knee immobilizer will follow-up in 2 weeks. Estimated blood loss: 0 Specimen(s) removed: None Post-operative diagnosis: Left hip periprosthetic dislocation
--- NOTE | 2024-02-20 20:17 | P.OP_ITS ---
Operative Report Date of procedure: February 20, 2024 Pre-op diagnosis: Left periprosthetic hip dislocation Post-op diagnosis: Same Post-op findings: See operative report narrative Procedure done: Left hip closed reduction Implants: None Specimens removed/disposition: None Pathology: None Surgeon: Asher Castillo DO Anesthesia: General Estimated blood loss: None IV fluids: See anesthesia record Complications: None Findings: See operative report narrative Condition: stable Disposition: other (Home) Brief History: Patient is a pleasant 78-year-old gentleman who has a dislocated left periprosthetic hip dislocation. Patient had this total hip replaced years ago. He subsequently had his left lower extremity in a weird position tripping over and felt his hip pop out he presented to the emergency department. He previousl y reviewing the medical record back in 2020 did have a dislocation that was reduced by my partner Dr. Corona. He has done well since this time. At this point we talked about treatment options they tried to reduce this with conscious sedation emergency department unsuccessful and as result orthopedics was consulted. At this point time given persistent hip dislocation would recommend going to the OR urgently today for left hip closed reduction versus possible open reduction. Patient understands the ins and outs procedure the risk benefits complication alternatives surgery and through shared decision making elected proceed with surgical intervention at this time. All questions answered. Procedure: Patient was seen evaluate in the preoperative holding area. Consent was reviewed and signed with patient correct extremities and subsequently marked. Patient was then seen evaluated by anesthesia was good for surgery was taken back to the operative suite patient was kept in supine position transported to standard OR table all bony prominences well-padded patient was brought to secured to the bed. Patient then underwent a CT per the anesthesia part was appropriate anesthetized a final timeout was performed. No antibiotics were given as this was an open procedure. We started off with a conscious sedation. While patient was under conscious sedation I did make multiple attempts however given patient's muscle spasms was unsuccessful I utilized fluoroscopic imaging throughout this. At this point in time I then subsequently had anesthesia placed patient under general anesthesia to allow for paralytics to allow for muscles relax. Once this was completed we then subsequently I performed a reduction maneuver and was successful. By the time I was reducing the hip this was dislocated in a more anterior position and subsequently reduced despite hip flexion distraction over external rotation followed by internal rotation and this had up loud audible palpable clunk. I utilized fluoroscopic imaging to confirm reduction as well as utilize life fluoroscopic imaging to take this to range of motion to ensure patient still had stability in planes of motion which was successful. I did confirm the implant prosthesis was stable as well. This completed my hip reduction and subsequent placed in a knee immobilizer as well as had hip abduction pillow in place. Patient was then awakened from anesthesia and taken PACU in stable condition. Patient tolerated procedure without issues or complication. Disposition: Patient tolerated procedure without issues or complications will discharge home today with his . Patient understands discharge instructions will follow-up in the office in 2 weeks. Patient understands agrees with current plan. Questions answered.
--- NOTE | 2024-02-20 20:18 | XRR_ITS ---
PROCEDURE INFORMATION: Exam: XR Left Ankle Exam date and time: 02/20/2024 8:36 PM Age: 78 years old Clinical indication: Pain; Ankle; Left; Additional info: Ankle pain/sprain TECHNIQUE: Imaging protocol: Radiologic exam of the left ankle. Views: 3 or more views. COMPARISON: CT hip LT wo con* [id number] 02/20/2024 5:11 PM FINDINGS: Bones/joints: Osseous structures are intact. Negative for fracture. Soft tissues: Soft tissue swelling around ankle. XR/XR ankle LT min 3V* [id number] IMPRESSION: No acute osseous abnormalities.
--- NOTE | 2024-02-20 21:20 | ANE.PACU2 ---
Inpatient post-anesthesia follow up: Airway intact: Yes Vital signs: Temperature 97.1 F Pulse Rate 69 Respiratory Rate 17 Blood Pressure 137/68 Pulse Oximetry 92 Oxygen Delivery Me thod Room Air Oxygen Flow Rate Fraction of Inspir ed Oxygen Hydration adequate: Yes Nausea and vomiting: No Pain level: 1 Mental status: Baseline
== END 2024-02-20 21:23 | disposition still patient (30) ==
PROVIDERS: Anesthesiology; Student in an Organized Health Care Education/Training Program; Emergency Provider Family Medicine; PCP Physician Assistant
DX: T84.021A Dislocation of internal left hip prosthesis, initial encounter (principal); Z79.82 Long term (current) use of aspirin; Z87.891 Personal history of nicotine dependence; H35.30 Unspecified macular degeneration; E11.22 Type 2 diabetes mellitus with diabetic chronic kidney disease; I12.9 Hypertensive chronic kidney disease with stage 1 through stage 4 chronic kidney disease, or unspecified chronic kidney disease; N18.9 Chronic kidney disease, unspecified; E78.5 Hyperlipidemia, unspecified
CPT/HCPCS: 27265; 36415; 73501; 73502; 73610; 73700; 76000; 80048; 96361; 96374; 96375; 99152; 99285; J1100; J2250; J2270; J2405; J2704; J3010; J7030

== ENCOUNTER → 2024-03-03 08:00 | Outpatient (BNVA) | payer MEDICARE, SELFPAY | PROVIDERS: PCP Physician Assistant; Visit Provider Podiatrist Foot & Ankle Surgery | DX: E11.42 Type 2 diabetes mellitus with diabetic polyneuropathy (principal); L60.3 Nail dystrophy; I73.9 Peripheral vascular disease, unspecified; S93.492A Sprain of other ligament of left ankle, initial encounter; M25.552 Pain in left hip; T84.021A Dislocation of internal left hip prosthesis, initial encounter; X58.XXXA Exposure to other specified factors, initial encounter | CPT/HCPCS: 11721; 73502; 99024; 99213 ==

== ENCOUNTER → 2024-06-02 08:06 | Outpatient (BNVA) | payer MEDICARE, SELFPAY | PROVIDERS: PCP Physician Assistant; Visit Provider Podiatrist Foot & Ankle Surgery | DX: E11.42 Type 2 diabetes mellitus with diabetic polyneuropathy (principal); L60.3 Nail dystrophy; I73.9 Peripheral vascular disease, unspecified; S93.492A Sprain of other ligament of left ankle, initial encounter; X58.XXXA Exposure to other specified factors, initial encounter | CPT/HCPCS: 11721; 99213 ==

== ENCOUNTER 2024-08-05 14:11 | Emergency (ER) | payer MEDICARE, SELFPAY ==
--- NOTE | 2024-08-05 14:16 | XR_ITS ---
WS: [email or web address] Exam: XR hip LT 2-3V wo/w pel* [id number] Date/Time of Exam: 08/05/2024 2:33 PM Reason For Exam: left hip dislocation Comparison 03/03/2024. There is superior and lateral dislocation of the femoral head prosthesis of the left total hip arthroplasty. No fractures are identified. XR/XR hip LT 2-3V wo/w pel* [id number] IMPRESSION: 1. Superior lateral dislocation of left-sided femoral head prosthesis.
[2024-08-05 14:19] VITALS: BP 130/69; PULSE 72; RESP 16; TEMP 36.7; O2SAT 100; BMI 29.2
--- NOTE | 2024-08-05 14:19 | W.ED.LOWEXIN ---
HPI - Extremity Injury (Lower) General: Chief Complaint: Extremity Injury, Lower Stated Complaint: Hip Dislocation Time Seen by Provider: 08/05/24 14:13 Source: patient and EMS Mode of arrival: EMS Limitations: no limitations History of Present Illness: 78-year-old male has a history of hip dislocations in his left hip. States that he had felt a pop in that hip earlier today and believes it is dislocated. He does have pain he rates a 4 out of 10 denies any other injuries. Has not been able to ambulate on the hip Related Data Home Medications ?Medication ?Instructions ?Recorded ?Confirmed aspirin 81 mg tablet,delayed 81 mg PO DAILY 05/20/19 06/02/24 release (Adult Low Dose Aspirin) atorvastatin 40 mg tablet 40 mg PO DAILY 05/20/19 06/02/24 cholecalciferol (vitamin D3) 25 1,000 unit PO DAILY 05/20/19 06/02/24 mcg (1,000 unit) capsule cinnamon bark 500 mg capsule 2,000 mg PO DAILY 05/20/19 06/02/24 (Cinnamon) diphenoxylate-atropine 2.5 2 tab PO TID 05/20/19 06/02/24 mg-0.025 mg tablet (Lomotil) fluticasone propionate 50 1 spray intranasal BID 05/20/19 06/02/24 mcg/actuation nasal spray,suspension (Flonase Allergy Relief) multivitamin 1 tab PO DAILY 12/22/20 06/02/24 amlodipine 5 mg tablet (Norvasc) 7.5 mg PO DAILY 08/16/22 06/02/24 Previous Rx's ?Medication ?Instructions ?Recorded right cmc brace #1 ea 06/04/22 celecoxib 200 mg capsule (Celebrex) 200 mg PO DAILY PRN pain #30 caps 11/28/22 Allergies Allergy/AdvReac Type Severity Reaction Status Date / Time chlorthalidone Allergy Unknown Verified 06/02/24 08:08 lisinopril Allergy ALGY-Anaphy Verified 06/02/24 08:08 laxis metformin Allergy Unknown Verified 06/02/24 08:08 metoprolol Allergy ADR-Drowsy Verified 06/02/24 08:08 Review of Systems Const: Denies: fever(s), chills, body aches or change in appetite ENMT: Denies: throat pain or dental pain Card: Denies: chest pain Resp: Denies: dyspnea GI: Denies: abdominal pain, nausea, vomiting or diarrhea Musc: Reports: extremity pain; Denies: neck pain or back pain Skin/Breast: Denies: rash Neuro: Denies: headache(s) PFSH ED PFSH: Medical History Arthritis of carpometacarpal (CMC) joint of right thumb Vitamin B12 deficiency Macular degeneration Chronic kidney disease Benign prostatic hyperplasia Degenerative arthritis Peripheral neuropathy Ulcerative colitis Hyperlipidemia Type 2 diabetes mellitus Lumbar stenosis with neurogenic claudication Retroperitoneal lymphadenopathy AAA (abdominal aortic aneurysm) Hypertension 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, of the knee Surgical History History of revision of total replacement of hip joint Revision of right total hip arthroplasty History of arthroscopic knee surgery Hx of tonsillectomy History of total colectomy History of total replacement of both hip joints Hx of shoulder surgery Arthroscopic right shoulder surgery Hx of arthroscopy of right knee Family History Other Diabetes Lung cancer Social History Smoking and tobacco/nicotine status: former use of tobacco/nicotine Quit status (tobacco/nicotine): has quit using Year quit tobacco: 1972 Former quit date comment: 1 pack per day for 5 years Alcohol intake: never Substance/Drug Use: never Lives independently: Yes Household members: spouse Marital status: Number of children: 3 Pets and animals: No Physical Exam Const: COMMON NORMALS: no acute distress, patient oriented x3 and healthy appearing HENMT: COMMON NORMALS: normocephalic and atraumatic HEAD & SCALP: normocephalic and atraumatic Eye: COMMON NORMALS: conjunctivae normal CONJUNCTIVA: Yes conjunctivae normal Neck/C-Spine: COMMON NORMALS: full ROM and supple Chest: COMMONS NORMALS: normal inspection of the chest Resp: COMMON NORMALS: normal respiratory effort Cardio: COMMON NORMALS: regular rate RATE: regular rate Extremity: NARRATIVE EXTREMITY EXAM: Tenderness noted to left hip some shortening and external rotation Neuro: COMMON NORMALS: patient oriented x3, moves all extremities and no focal motor deficits Psych: COMMON NORMALS: mental status grossly normal, Normal thought process present and cooperative THOUGHT PROCESS: Normal thought process present Skin: COMMON NORMALS: no rashes or lesions noted and no wounds GENERAL SKIN EXAM: no rashes or lesions noted Procedures Orthopedic Joint Reduction Joint #1: Time Out Performed: Yes Side: left Joint Reduction Location: hip Analgesia: procedural sedation Technique used: traction/counter-traction Post-reduction neuro exam: intact Post-reduction vascular: intact Post Reduction X-Ray Obtained: Yes Post Reduction X-Ray Results: reduced Splint Applied: Yes Patient Tolerated Procedure: well Procedural Sedation Indication: fracture/dislocation reduction ASA Class: I Preparation: security system technician applied, pulse oximeter and supplemental O2 applied IV Propofol dose (mg): 160 Patient Tolerated Procedure: well Complications: none Course Vital Signs: Vital signs: Vital Signs Temperature 98.1 F 08/05/24 14:19 Pulse Rate 72 08/05/24 14:19 Respiratory Rate 16 08/05/24 14:19 Blood Pressure 130/69 08/05/24 14:19 Pulse Oximetry 100 08/05/24 14:19 Oxygen Delivery Me thod Room Air 08/05/24 14:19 MDM - Extremity Injury (Lower) Medical Decision Making Patient presents with hip dislocation was able to reduce the hip he stable for discharge he is to follow-up with his orthopedics return if worsening Lab Data Radiology Impressions Hip X-Ray 08/05/24 15:00 IMPRESSION: 1. Apparent reduction of previously noted LEFT hip prosthesis dislocation however a lateral view would be necessary for confirmation. All radiology interpretation(s) finalized by discharge Discharge Plan Discharge Patient Disposition: Home Clinical Impression: Dislocation of left hip Condition: Stable Prescriptions: No Action diphenoxylate-atropine [Lomotil] 2.5-0.025 mg tablet 2 tab PO TID atorvastatin 40 mg tablet 40 mg PO DAILY aspirin [Adult Low Dose Aspirin] 81 mg tablet,delayed release (DR/EC) 81 mg PO DAILY fluticasone propionate [Flonase Allergy Relief] 50 mcg/actuation spray,suspension 1 spray INTRANASAL BID cinnamon bark [Cinnamon] 500 mg capsule 2,000 mg PO DAILY cholecalciferol (vitamin D3) 1,000 unit capsule 1,000 unit PO DAILY amlodipine [Norvasc] 5 mg tablet 7.5 mg PO DAILY (DME) right cmc brace See Rx Instructions .Route .MEDSUPPLY Qty: 1 0RF Rx Instructions: As directed celecoxib [Celebrex] 200 mg capsule 200 mg PO DAILY PRN (Reason: pain) Qty: 30 0RF multivitamin Tablet 1 tab PO DAILY Discharge Orders: Discharge ED (Routine); Ordered 08/05/24 Ordered By: Venus Chapman Referrals: Amirah Mckeon PA [Primary Care Provider] - Asher Castillo DO [Physician] - 4-7 days Discharge Diet: Advance as tolerated Discharge Activity: Resume usual activity Patient Instructions: Hip Dislocation (ED) Print Language: Maltese Coding Level of Care Code ED Country Printer for Harris Terrell
--- NOTE | 2024-08-05 15:00 | XR_ITS ---
WS: [email or web address] Exam: XR hip LT 1V wo/w pel [id number] Date/Time of Exam: 08/05/2024 3:05 PM Reason For Exam: post reduction Single AP view of the LEFT hip shows apparent reduction of previously noted total hip arthroplasty femoral head dislocation however lateral view would be necessary for confirmation. Normal soft tissues. Numerous surgical clips in the LEFT pelvis. Partially visualized RIGHT total hip replacement. XR/XR hip LT 1V wo/w pel [id number] IMPRESSION: 1. Apparent reduction of previously noted LEFT hip prosthesis dislocation howev er a lateral view would be necessary for confirmation.
[2024-08-05] MEDS: propofol 10 mg/mL SDV 20 mL 160 MG IVP (15:23)
--- NOTE | 2024-08-05 15:25 | XR_ITS ---
WS: [email or web address] Exam: XR hip LT 2-3V wo/w pel* [id number] Date/Time of Exam: 08/05/2024 3:25 PM Reason For Exam: post reduction Previously noted LEFT hip prosthesis dislocation has been satisfactorily reduced. No fracture identified. The prosthesis appears to be intact. XR/XR hip LT 2-3V wo/w pel* [id number] IMPRESSION: 1. Satisfactory reduction of previously noted LEFT hip prosthesis dislocation.
--- NOTE | 2024-08-05 15:29 | PC.NURSE ---
CONSCIOUS SEDATION: TIMEOUT - 1502 DR. BARRON ADMINISTERED PROPOFOL 60MG IVP ONCE - 1503 DR. BARRON ADMINISTERED PROPOFOL 40MG IVP ONCE - [address] BARRON ADMINISTERED PROPOFOL 60MG IVP ONCE - 1509 VITALS- 1510 HR-71 98% 3 L NC 140/87 VITALS -1515 HR- 66 100% 2 L NC 115/62 A&OX4 WITH EQUAL NONLABORED RESPIRATIONS
--- NOTE | 2024-08-05 15:41 | PC.NURSE ---
PATIENT REFUSED KNEE IMMOBILIZER DUE TO HAVING MULTIPLES AT HOME. PATIENT AGREED TO CRUTCHES
[2024-08-05 15:57] VITALS: BP 115/62; PULSE 65; O2SAT 99
--- NOTE | 2024-08-06 11:23 | DCPLANNER ---
messaged ortho for er f/u
== END 2024-08-05 15:59 | disposition home or self-care (01) ==
PROVIDERS: Emergency Provider Emergency Medicine; PCP Physician Assistant
DX: S73.005A Unspecified dislocation of left hip, initial encounter (principal); X58.XXXA Exposure to other specified factors, initial encounter; E11.22 Type 2 diabetes mellitus with diabetic chronic kidney disease; I12.9 Hypertensive chronic kidney disease with stage 1 through stage 4 chronic kidney disease, or unspecified chronic kidney disease; N18.9 Chronic kidney disease, unspecified; E78.5 Hyperlipidemia, unspecified; Z79.82 Long term (current) use of aspirin; Z87.891 Personal history of nicotine dependence
CPT/HCPCS: 27250; 73501; 73502; 94799; 99152; 99285; J2704

== ENCOUNTER 2024-08-17 09:32 | Outpatient (CLI) | payer MEDICARE, SELFPAY ==
--- NOTE | 2024-08-17 09:38 | CT_ITS ---
WS: [id number] CT NECK TECHNIQUE: Contrast-enhanced CT of the neck with coronal and sagittal reformatted images. CLINICAL INFORMATION: NECK MASS COMPARISON: None. DLP: 234.[address] scans at [facility] use at least one of these dose optimization techniques: automated exposure control; mA and/or kV adjustment per patient size (includes targeted exams where dose is matched to clinical indication); or iterative reconstruction. FINDINGS: Numerous enhancing bilateral parotid and submandibular enhancing nodules. This involves the parotid glands and submandibular glands bilaterally. Largest enhancing nodules measure up to 2 cm. Normal posterior nasopharynx. Normal parapharyngeal fat. No evidence of supraglottic or glottic mass. Normal subglottic airway. 1 or 2 tiny thyroid nodules. Fibrosis in the lung apices. Moderate spondylitic changes cervical spine. Slight reversal of the normal cervical lordosis. Carotid bulb calcification CT/CT neck w con* [id number] IMPRESSION: Numerous enhancing bilateral parotid and submandibular enhancing nodules. Diffe rential considerations include metastatic disease, lymphoma, and Warthin's tumo r. Recommend ENT consultation. Recommend correlation with history of malignancy .
[2024-08-17] MEDS: iohexol 350 mg/mL 500 mL Btl (per mL) IV (09:54)
== END 2024-08-17 09:33 | disposition home or self-care (01) ==
PROVIDERS: PCP Physician Assistant; Visit Provider Physician Assistant
DX: R22.1 Localized swelling, mass and lump, neck (principal); J84.10 Pulmonary fibrosis, unspecified; M47.892 Other spondylosis, cervical region; I65.23 Occlusion and stenosis of bilateral carotid arteries
CPT/HCPCS: 70491

== ENCOUNTER → 2024-08-18 08:03 | Outpatient (BNVA) | payer MEDICARE, SELFPAY | PROVIDERS: PCP Physician Assistant; Visit Provider Student in an Organized Health Care Education/Training Program | DX: T84.021A Dislocation of internal left hip prosthesis, initial encounter (principal); S73.005A Unspecified dislocation of left hip, initial encounter; X58.XXXA Exposure to other specified factors, initial encounter | CPT/HCPCS: 73502 ==

== ENCOUNTER 2024-08-18 09:45 | Outpatient (CLI) | payer MEDICARE, SELFPAY | END 2024-08-18 09:46 | disposition home or self-care (01) | LOC: SPT 09:45 | PROVIDERS: PCP Physician Assistant; Visit Provider Student in an Organized Health Care Education/Training Program | DX: Z47.89 Encounter for other orthopedic aftercare (principal); T84.021D Dislocation of internal left hip prosthesis, subsequent encounter | CPT/HCPCS: 97760; L1686 ==

== ENCOUNTER 2024-08-27 07:43 | Outpatient (CLI) | payer MEDICARE, SELFPAY ==
--- NOTE | 2024-08-27 07:46 | CTR_ITS ---
PROCEDURE INFORMATION: Exam: CT Abdomen And Pelvis With Contrast Exam date and time: 08/27/2024 8:27 AM Clinical indication: Condition or disease; Other: Aaa; Arterial aneurysm; Without rupture; Prior surgery; Surgery date: 6+ months; Surgery type: Colon appy; Additional info: Abdominal aortic aneurysm w/o rupture TECHNIQUE: Imaging protocol: Computed tomography of the abdomen and pelvis with contrast. COMPARISON: CT angiogram of the abdomen and pelvis October 01, 2023 FINDINGS: Tubes, catheters and devices: There are multiple surgical clips in the pelvis. Lungs: 9-10 mm noncalcified, pleural-based nodular density in the left lower lobe, similar in appearance to the prior study. Diaphragm: Small hiatus hernia. Liver: The liver is normal in appearance. No focal liver mass or intrahepatic biliary dilatation. Gallbladder and biliary ducts: Cholelithiasis but no CT evidence of cholecystitis. Pancreas: The pancreas is normal in appearance. No evidence of pancreatic ductal dilatation. Spleen: The spleen is normal in appearance. Adrenal glands: The adrenal glands are normal in appearance. Kidneys and ureters: Normal. No hydronephrosis. Stomach and bowel: The small bowel loops are not thickened and are nondilated. The surgical anastomosis in the region of the sigmoid colon is unremarkable. Appendix: Status post appendectomy Intraperitoneal space: No free fluid in the abdomen or pelvis Vasculature: Stable saccular aneurysm of the infrarenal abdominal aorta which continues to measure about 4.4-4.5 cm. There is a stable plaque ulceration anteriorly. 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 Lymph nodes: New significant bulky retroperitoneal adenopathy. There is a confluence ce group along the left side of the retroperitoneum measuring about 6 x 5.5 x 4.7 cm. There are multiple other enlarged retroperitoneal lymph nodes as well as small lymph nodes in the vangie hepatis. The adenopathy is concerning for metastatic disease. Urinary bladder: Unremarkable as visualized. Reproductive: Unremarkable as visualized. Bones/joints: The pathologic fracture at L2 has worsened when compared to the previous study. There is a new lytic lesion in the L4 vertebral body concerning for metastatic disease. There is an enlarging lytic lesion in the inferior endplate of L3 and T10 probably representing enlarging Schmorl's nodes. Status post bilateral hip arthroplasties. Old bilateral rib fractures. Soft tissues: Small fat containing periumbilical hernia. CT/CT angio abdomen pelvis [id number] IMPRESSION: 1. Stable saccular aneurysm of the infrarenal abdominal aorta which continues to measure about 4.5 cm. No evidence of aneurysm leak or rupture. 2. Bulky retroperitoneal adenopathy highly concerning for metastatic disease. 3. Worsening pathologic fracture of the L2 and new lytic lesion in L4 concerning for metastatic disease. 4. Cholelithiasis but no suggestion of cholecystitis. 5. Stable 9-10 mm noncalcified pleural-based nodule in the left lower lobe, unchanged from prior imaging.
[2024-08-27] MEDS: iohexol 350 mg/mL 500 mL Btl (per mL) IV (08:35)
== END 2024-08-27 07:44 | disposition home or self-care (01) ==
PROVIDERS: PCP Physician Assistant; Visit Provider Physician Assistant
DX: I71.43 Infrarenal abdominal aortic aneurysm, without rupture (principal); M84.48XG Pathological fracture, other site, subsequent encounter for fracture with delayed healing; R93.7 Abnormal findings on diagnostic imaging of other parts of musculoskeletal system; M89.9 Disorder of bone, unspecified; K80.20 Calculus of gallbladder without cholecystitis without obstruction; R91.1 Solitary pulmonary nodule; K44.9 Diaphragmatic hernia without obstruction or gangrene; Z98.890 Other specified postprocedural states; R93.5 Abnormal findings on diagnostic imaging of other abdominal regions, including retroperitoneum; I72.3 Aneurysm of iliac artery; R59.0 Localized enlarged lymph nodes; Z96.89 Presence of other specified functional implants; Z87.81 Personal history of (healed) traumatic fracture; K42.9 Umbilical hernia without obstruction or gangrene
CPT/HCPCS: 74174

== ENCOUNTER → 2024-09-01 08:05 | Outpatient (BNVA) | payer MEDICARE, SELFPAY | PROVIDERS: PCP Physician Assistant; Visit Provider Podiatrist Foot & Ankle Surgery | DX: E11.42 Type 2 diabetes mellitus with diabetic polyneuropathy (principal); L60.3 Nail dystrophy; I73.9 Peripheral vascular disease, unspecified | CPT/HCPCS: 11721 ==

== ENCOUNTER 2024-09-15 14:43 | Oncology outpatient (recurring) (ONCR) | payer MEDICARE, SELFPAY | END 2024-10-10 23:59 | disposition home or self-care (01) | PROVIDERS: PCP Physician Assistant; Visit Provider Internal Medicine Medical Oncology | DX: R59.1 Generalized enlarged lymph nodes (principal); R03.0 Elevated blood-pressure reading, without diagnosis of hypertension; Z87.891 Personal history of nicotine dependence | CPT/HCPCS: 99215 ==

== ENCOUNTER 2024-09-26 18:08 | Emergency (ER) | payer MEDICARE, SELFPAY ==
[2024-09-26 18:22] VITALS: BP 142/78; PULSE 77; RESP 17; TEMP 37.1; O2SAT 98; BMI 27.8
[2024-09-26] MEDS: lidocaine-epi 1% 20 mL INJ 4 ML INJECTION (21:03)
--- NOTE | 2024-09-26 21:32 | W.ED.WOUNDLC ---
HPI - Wound/Laceration General: Chief Complaint: Wound/Laceration Stated Complaint: dr Calabrese wants throat looked at surgery 09/23 Time Seen by Provider: 09/26/24 20:17 Source: patient Mode of arrival: ambulatory Limitations: no limitations History of Present Illness: Patient is a 78-year-old male that presents to the emergency department with bleeding from his surgical site. Patient states he had a lymph node removed on Saturday by Dr. Calabrese. He states this evening he was watching TV when he felt something wet coming from the area and noticed it was bleeding. He denies any injury to the area. He denies any strenuous activity that led to this. He denies any fever or chills. He states the swelling has improved since the surgery. He presents to the emergency department for further evaluation and treatment. Associated symptoms: Denies chills, fever(s), nausea or vomiting Related Data Home Medications ?Medication ?Instructions ?Recorded ?Confirmed aspirin 81 mg tablet,delayed 81 mg PO DAILY 05/20/19 09/15/24 release (Adult Low Dose Aspirin) cholecalciferol (vitamin D3) 25 1,000 unit PO DAILY 05/20/19 09/15/24 mcg (1,000 unit) capsule cinnamon bark 500 mg capsule 2,000 mg PO DAILY 05/20/19 09/15/24 (Cinnamon) diphenoxylate-atropine 2.5 2 tab PO TID 05/20/19 09/15/24 mg-0.025 mg tablet (Lomotil) fluticasone propionate 50 1 spray intranasal BID 05/20/19 09/15/24 mcg/actuation nasal spray,suspension (Flonase Allergy Relief) multivitamin 1 tab PO DAILY 12/22/20 09/15/24 amlodipine 5 mg tablet (Norvasc) 7.5 mg PO DAILY 08/16/22 09/15/24 calcium carbonate 500 mg PO DAILY 08/18/24 09/15/24 atorvastatin 80 mg tablet mg PO 09/15/24 09/15/24 Previous Rx's ?Medication ?Instructions ?Recorded right cmc brace #1 ea 06/04/22 celecoxib 200 mg capsule (Celebrex) 200 mg PO DAILY PRN pain #30 caps 11/28/22 left hip abduction brace #1 ea 08/18/24 Allergies Allergy/AdvReac Type Severity Reaction Status Date / Time chlorthalidone Allergy Unknown Verified 09/15/24 14:48 lisinopril Allergy ALGY-Anaphy Verified 09/15/24 14:48 laxis metformin Allergy Unknown Verified 09/15/24 14:48 metoprolol Allergy ADR-Drowsy Verified 09/15/24 14:48 Review of Systems General: Reports: 10 or more systems reviewed and unremarkable except in HPI and below Const: Denies: fever(s) or chills Eyes: Denies: change in vision or blurry vision ENMT: Denies: throat pain or odynophagia Card: Denies: chest pain or palpitations Resp: Denies: dyspnea, productive cough or non-productive cough GI: Denies: abdominal pain, nausea or vomiting : Denies: flank pain, difficulty urinating or dysuria Musc: Denies: neck pain or back pain Skin/Breast: Reports: other (Bleeding from incision site on the right side of the neck) Neuro: Denies: headache(s), numbness in extremities or weakness in extremities Psych: Denies: anxiety Endo: Denies: polyuria or polydipsia Roney/Lymph: Denies: easy bleeding or petechiae All/Imm: Denies: urticaria or tongue swelling PFSH ED PFSH: Medical History Arthritis of carpometacarpal (CMC) joint of right thumb Vitamin B12 deficiency Macular degeneration Chronic kidney disease Benign prostatic hyperplasia Degenerative arthritis Peripheral neuropathy Ulcerative colitis Hyperlipidemia Type 2 diabetes mellitus Lumbar stenosis with neurogenic claudication Retroperitoneal lymphadenopathy AAA (abdominal aortic aneurysm) Hypertension 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, of the knee Surgical History History of revision of total replacement of hip joint Revision of right total hip arthroplasty History of arthroscopic knee surgery Hx of tonsillectomy History of total colectomy History of total replacement of both hip joints Hx of shoulder surgery Arthroscopic right shoulder surgery Hx of arthroscopy of right knee Family History Other Diabetes Lung cancer Social History Smoking and tobacco/nicotine status: former use of tobacco/nicotine Quit status (tobacco/nicotine): has quit using Year quit tobacco: 1972 Former quit date comment: 1 pack per day for 5 years Alcohol intake: never Substance/Drug Use: never Lives independently: Yes Household members: spouse Marital status: Number of children: 3 Pets and animals: No Physical Exam Const: COMMON NORMALS: no acute distress, patient oriented x3 and alert GENERAL APPEARANCE: cooperative and well kempt ORIENTATION/CONSCIOUSNESS: Yes awake HENMT: COMMON NORMALS: normocephalic, atraumatic, external ears normal and Normal external nose present HEAD & SCALP: normocephalic and atraumatic NOSE: Normal external nose present EXTERNAL EAR: Yes external ears normal Eye: COMMON NORMALS: conjunctivae normal CONJUNCTIVA: Yes conjunctivae normal Neck/C-Spine: GENERAL: No tender and Yes other (Slight bleeding from incision site on the right side of the neck) CERVICAL SPINE: Yes cervical ROM normal Resp: COMMON NORMALS: normal respiratory effort and clear to auscultation bilaterally AUSCULTATION: clear to auscultation bilaterally, no crackles, no rales, no rhonchi and no wheezes Cardio: COMMON NORMALS: regular rate and regular rhythm RATE: regular rate RHYTHM: regular rhythm Back/Pelvis: COMMON NORMALS: no thoracic nor lumbar tenderness Extremity: COMMON NORMALS: normal to inspection and full ROM Neuro: COMMON NORMALS: patient oriented x3 SENSORIUM/ORIENTATION: Yes alert Psych: COMMON NORMALS: mental status grossly normal and cooperative APPEARANCE: Yes grossly normal and Yes well kempt Skin: WOUNDS: Yes surgical site (Small amount of bleeding from incision site on the right anterior neck) Details: sutures Procedures Laceration Laceration 1: Site: neck Side (If applicable): right Size (cm): 0.5 (Total incision is approx 2.5 cm, but bleeding from about 0.25 cm) Description: linear Depth: simple, single layer Local Anesthetic: lidocaine 1% and with epi Amount of anesthesia used (mL): 3 Skin layer closed with: other (Prolene) Size (cm): 4-0 Number of sutures: 2 Technique: simple, interrupted (With Surgicel held against the incision site) Course ED course: I discussed the case with Dr. Ulloa. He recommended discussing the case with Dr. Calabrese. If he is agreeable, he recommended using some Surgicel and putting a stitch through to hold the Surgicel to the bleeding site of the wound and have the patient follow-up outpatient with Dr. Calabrese. Consultations: Consultation #1: I discussed the case with Dr. Calabrese. Since the swelling is improving and there is not any significant arterial bleeding he recommended doing a [id number] stitch to see if we can close it up. I did float the idea of the Surgicel and he thought that that would be a good idea as well. He will follow-up with the patient in clinic but states if we are unable to get the bleeding to stop to give him another call. Time: 20:47 Vital Signs: Vital signs: Vital Signs Temperature 98.7 F 09/26/24 18:22 Pulse Rate 77 09/26/24 18:22 Respiratory Rate 17 09/26/24 18:22 Blood Pressure 142/78 09/26/24 18:22 Pulse Oximetry 98 09/26/24 18:22 Oxygen Delivery Me thod Room Air 09/26/24 18:22 MDM - Wound/Laceration Medical Decision Making Patient tolerated the procedure well with no immediate complications. The wound was no longer bleeding after the application of the stitches and the Surgicel placement. The patient was advised to follow-up with Dr. Calabrese as scheduled on Saturday. I advised that if it starts bleeding again that he use some fresh gauze and apply direct pressure for 20 minutes to see if that will get the bleeding stopped. He was advised to return to the emergency department if he continues to bleed. The patient expressed understanding. Differential Diagnosis Likely laceration (Bleeding from surgical incision) No radiology studies performed this visit Critical Care Time Critical Care Time: Critical Care Time: No Discharge Plan Discharge Patient Disposition: Home Clinical Impression: Postoperative bleeding from incision Condition: Stable Prescriptions: No Action diphenoxylate-atropine [Lomotil] 2.5-0.025 mg tablet 2 tab PO TID aspirin [Adult Low Dose Aspirin] 81 mg tablet,delayed release (DR/EC) 81 mg PO DAILY fluticasone propionate [Flonase Allergy Relief] 50 mcg/actuation spray,suspension 1 spray INTRANASAL BID cinnamon bark [Cinnamon] 500 mg capsule 2,000 mg PO DAILY cholecalciferol (vitamin D3) 1,000 unit capsule 1,000 unit PO DAILY amlodipine [Norvasc] 5 mg tablet 7.5 mg PO DAILY (DME) right cmc brace See Rx Instructions .Route .MEDSUPPLY Qty: 1 0RF Rx Instructions: As directed calcium carbonate 500 mg calcium (1,250 mg) tablet 500 mg PO DAILY (DME) left hip abduction brace See Rx Instructions .Route .MEDSUPPLY Qty: 1 0RF Rx Instructions: As directed atorvastatin 80 mg tablet PO celecoxib [Celebrex] 200 mg capsule 200 mg PO DAILY PRN (Reason: pain) Qty: 30 0RF multivitamin Tablet 1 tab PO DAILY Discharge Orders: Discharge ED (Routine); Ordered 09/26/24 Ordered By: Josh Crane Referrals: Brian Calabrese MD [Physician, Ear, Nose, Throat] Amirah Mckeon PA [Primary Care Provider, Physicians Inserter Promotional Item] Discharge Diet: Usual diet Discharge Activity: Limit activity as instructed Patient Instructions: Postoperative Bleeding (ED), Opioid Safety, Pain Management Activity Restrictions/Additional Instructions: Keep the wound clean and dry. Follow-up with Dr. Calabrese as scheduled on Saturday. If bleeding recurs, hold direct pressure for at least 20 minutes. If the bleeding continues return to the emergency department. Print Language: Arabic Coding Level of Care Code ED Firesetter for Harris Terrell
== END 2024-09-26 21:57 | disposition home or self-care (01) ==
PROVIDERS: Emergency Provider Physician Assistant; PCP Physician Assistant
DX: L76.22 Postprocedural hemorrhage of skin and subcutaneous tissue following other procedure (principal); Z87.891 Personal history of nicotine dependence; E78.5 Hyperlipidemia, unspecified; E11.22 Type 2 diabetes mellitus with diabetic chronic kidney disease; I12.9 Hypertensive chronic kidney disease with stage 1 through stage 4 chronic kidney disease, or unspecified chronic kidney disease; N18.9 Chronic kidney disease, unspecified; Z79.82 Long term (current) use of aspirin
CPT/HCPCS: 12001; 99283; J9999

== ENCOUNTER 2024-10-09 10:46 | Outpatient (CLI) | payer MEDICARE, SELFPAY ==
--- NOTE | 2024-10-09 10:58 | PETR_ITS ---
PROCEDURE INFORMATION: Exam: PET/CT Skull Base to Mid-thigh Exam date and time: 10/09/2024 11:43 AM Age: 78 years old Clinical indication: Condition or disease; Primary cancer: Non-hodgkin lymphoma; Prior surgery; Surgery date: 6+ months; Surgery type: Colon, appy LABS AND CLINICAL REPORTS: Glucose: 135 mg/dl Treatment strategy for malignancy (PET staging): Initial Staging (PI) TECHNIQUE: Imaging protocol: Following at least four-hour fasting and following the injection of radiopharmaceutical, low dose CT images were obtained. Then, PET images were obtained. Attenuation corrected images were constructed using the CT scan. Fused images of PET and CT were reviewed. The standardized uptake values (SUV) reported below are maximum values within a region of interest, expressed in gm/ml. Exam includes orbital meatal line to mid-thigh. SUV normalization method: BodyWeight Radiopharmaceutical: 9.66 mCi F-18 FDG (Fluorodeoxyglucose), IV. Time of imaging post radiopharmaceutical administration: 44 minutes Injection site: RIGHT AC COMPARISON: 1. CT angio abdomen pelvis [id number] 10/01/2023 8:[address] angio abdomen pelvis [id number] 08/27/2024 8:[address] neck w con* [id number] 08/17/2024 9:[address] hip LT wo con* [id number] 02/20/2024 5:11 PM FINDINGS: Brain: Visualized brain has normal physiologic uptake. Salivary glands: Multiple bilateral FDG avid parotid and submandibular gland masses, index anterior superficial right parotid mass measures approximately 2.1 cm on axial image 62 and shows SUV max 12.3. Small amount of air at the right submandibular gland and in the overlying soft tissues, correlate with recent procedure/biopsy. Teeth: Right maxillary 1st premolar periapical lucency with associated FDG uptake showing SUV max 6.8 on axial image 60. Pharynx: No abnormal uptake. Larynx: No abnormal uptake. Lungs, pleura and trachea: No abnormal uptake. Mild dependent atelectasis. Non FDG avid right anterior pleural calcification. Heart: Normal physiologic uptake. Coronary arteries: Heavy coronary artery calcification. Mediastinal space: No abnormal uptake. Liver: No abnormal uptake. Gallbladder and biliary ducts: No abnormal uptake. Cholelithiasis. Pancreas: No abnormal uptake. Spleen: No abnormal uptake. Adrenal glands: No abnormal uptake. Kidneys and ureters: Normal physiologic uptake. Stomach and bowel: Stable postsurgical changes from prior colectomy with distal anastomosis. No abnormal uptake. Reproductive: Diffuse asymmetric right testicular FDG uptake without underlying CT abnormality, SUV max 4.1 on axial image 322. Vasculature: No abnormal uptake. Heavy systemic atherosclerotic calcification with stable infrarenal abdominal aortic aneurysm measuring up to 4.7 cm and right common iliac artery dilatation measuring 2.1 cm. Lymph nodes: FDG avid retroperitoneal lymphadenopathy with index left para-aortic ce conglomerate measuring 6.1 x 4.7 cm on axial image 224 with SUV max 13.4. Skeleton: Degenerative changes along the axial skeletal system and both shoulders. Bilateral total hip arthroplasties and partially imaged right femoral plate and screw fixation. Mild glexh-iaedanh-thzk-left shoulder periarticular FDG uptake is likely inflammatory. FDG uptake about the proximal right femur with underlying soft tissue thickening showing stable CT appearance is also likely benign/inflammatory. Soft tissues: No abnormal uptake in the visualized head, neck, chest, abdomen, pelvis, and extremities. METRICS: Mediastinal blood pool: SUV mean 2.2 Liver uptake: SUV mean 2.8 PET/PET skull to thigh INIT [id number] IMPRESSION: 1. FDG avid retroperitoneal lymphadenopathy compatible with reported lymphoma. Deauville 5. 2. Multiple bilateral FDG avid parotid and submandibular gland masses with small amount of air at the right submandibular gland, query recent procedure/biopsy. Findings may represent lymphomatous involvement, correlate with suspected recent biopsy. 3. Asymmetric right testicular FDG uptake is nonspecific, may be inflammatory or neoplastic. Recommend ultrasound. 4. Right maxillary 1st premolar periapical lucency with associated FDG uptake that is likely inflammatory. 5. Additional chronic and incidental findings as above.
== END 2024-10-09 10:47 | disposition home or self-care (01) ==
PROVIDERS: PCP Physician Assistant; Visit Provider Otolaryngology
DX: C85.92 Non-Hodgkin lymphoma, unspecified, intrathoracic lymph nodes (principal); R93.89 Abnormal findings on diagnostic imaging of other specified body structures; J98.11 Atelectasis; J94.8 Other specified pleural conditions; I25.10 Atherosclerotic heart disease of native coronary artery without angina pectoris; K80.20 Calculus of gallbladder without cholecystitis without obstruction; Z98.890 Other specified postprocedural states; I70.0 Atherosclerosis of aorta; I71.43 Infrarenal abdominal aortic aneurysm, without rupture; I72.8 Aneurysm of other specified arteries; R59.0 Localized enlarged lymph nodes; M47.9 Spondylosis, unspecified; M19.012 Primary osteoarthritis, left shoulder; M19.011 Primary osteoarthritis, right shoulder; Z96.643 Presence of artificial hip joint, bilateral; R91.1 Solitary pulmonary nodule; S32.020D Wedge compression fracture of second lumbar vertebra, subsequent encounter for fracture with routine healing; X58.XXXD Exposure to other specified factors, subsequent encounter; R93.7 Abnormal findings on diagnostic imaging of other parts of musculoskeletal system
CPT/HCPCS: 78815; A9552

== ENCOUNTER → 2024-10-23 07:50 | Outpatient (BNVA) | payer MEDICARE, SELFPAY | PROVIDERS: PCP Physician Assistant; Visit Provider Student in an Organized Health Care Education/Training Program | DX: Z95.828 Presence of other vascular implants and grafts (principal) | CPT/HCPCS: 99204 ==

== ENCOUNTER 2024-10-28 09:54 | Day surgery (SDC) | payer MEDICARE, SELFPAY ==
[2024-10-28] VITALS (7 sets, daily range): BP systolic 84–152; BP diastolic 60–74; PULSE 65–79; RESP 16–22; TEMP 36.1–36.4; O2SAT 95–98; BMI 27.8
--- NOTE | 2024-10-28 09:48 | SC_ITS ---
WS: [id number] C-arm fluoroscopy for insertion of right infusion catheter, 10/28/2024 Clinical Data: Port placement Comparison: Portable chest, 11/07/2023 Findings: Dr. Benedict inserted the right infusion catheter into the superior vena cava. SC/C-arm FL for CVA [id number] Impression: Insertion right infusion catheter.
--- NOTE | 2024-10-28 10:18 | ANES.PREANE2 ---
Pre-Anesthetic Assessment Height/Weight: Height 5 ft 11 in Weight 200 lb Temp Pulse Resp BP Pulse Ox O2 Del Method 97.5 F L 65 18 152/74 98 Room Air 10/28/24 10:08 10/28/24 10:08 10/28/24 10:08 10/28/24 10:08 10/28/24 10:08 10/28/24 10:08 Preop Diagnosis: Follicular lymphoma Operation Date: 10/28/24 11:35 Proposed Procedures p Portacath Placement [id number], Z95.828(Not Applicable) - Domingo Benedict MD Was Beta Ke taken within 24 hours: N/A Was Clonidine taken within 24 hours: N/A Last intake: Intake Last Liquid Date 10/27/24 Last Liquid Time 20:00 Last Solid Date 10/27/24 Last Solid Time 20:00 Social No alcohol and No tobacco Exam alert, oriented x 3, clear to auscultation bilaterally and regular rate & rhythm Airway Submandibular: within normal limits Cervical ROM: within normal limits Mallampati: Class III Dentition: full Anesthetic Plan ASA status: 3 Anesthesia: MAC Other: No prior issues with anesthesia NPO since yesterday evening History of hypertension on amlodipine Patient has follicular lymphoma, plan on starting chemo on Saturday morning Labs reviewed from 10/13/2024 and acceptable for procedure today Plan for MAC anesthesia with local via surgeon Medications/Allergies Home Medications ?Medication ?Instructions ?Recorded ?Confirmed ?Last Taken ?Type aspirin 81 mg tablet,delayed 81 mg PO DAILY 05/20/19 10/28/24 10/28/24 History release (Adult Low Dose Aspirin) cholecalciferol (vitamin D3) 25 1,000 unit PO DAILY 05/20/19 10/27/24 10/27/24 History mcg (1,000 unit) capsule cinnamon bark 500 mg capsule 2,000 mg PO DAILY 05/20/19 10/28/24 10/28/24 History (Cinnamon) diphenoxylate-atropine 2.5 2 tab PO TID 05/20/19 10/28/24 10/28/24 History mg-0.025 mg tablet (Lomotil) fluticasone propionate 50 1 spray intranasal BID 05/20/19 10/27/24 10/26/24 History mcg/actuation nasal spray,suspension (Flonase Allergy Relief) multivitamin 1 tab PO DAILY 12/22/20 10/27/24 10/27/24 History right cmc brace #1 ea 06/04/22 10/23/24 Unknown Rx amlodipine 5 mg tablet (Norvasc) 7.5 mg PO DAILY 08/16/22 10/28/24 10/28/24 History calcium carbonate 500 mg PO DAILY 08/18/24 10/27/24 10/27/24 History left hip abduction brace #1 ea 08/18/24 10/23/24 Unknown Rx atorvastatin 80 mg tablet 40 mg PO DAILY 09/15/24 10/27/24 10/26/24 History allopurinol 300 mg tablet 300 mg PO DAILY #30 tabs 10/14/24 10/27/24 10/27/24 Rx ondansetron HCl 4 mg tablet 4 mg PO Q6H PRN nausea and 10/14/24 10/27/24 Unknown Rx vomiting #30 tabs prochlorperazine maleate 10 mg 10 mg PO Q4H PRN mild nausea #30 10/14/24 10/27/24 Unknown Rx tablet (Compazine) tabs valacyclovir 500 mg tablet 500 mg PO BID #60 tabs 10/14/24 10/28/24 10/28/24 Rx Allergies Allergy/AdvReac Type Severity Reaction Status Date / Time chlorthalidone Allergy Unknown Verified 10/27/24 12:57 lisinopril Allergy ALGY-Anaphy Verified 10/27/24 12:57 laxis metformin Allergy Unknown Verified 10/27/24 12:57 metoprolol Allergy ADR-Drowsy Verified 10/27/24 12:57 PFSH Anesthesia Medical History Arthritis of carpometacarpal (CMC) joint of right thumb Vitamin B12 deficiency Macular degeneration Chronic kidney disease Benign prostatic hyperplasia Degenerative arthritis Peripheral neuropathy Ulcerative colitis Hyperlipidemia Type 2 diabetes mellitus Lumbar stenosis with neurogenic claudication Retroperitoneal lymphadenopathy AAA (abdominal aortic aneurysm) Hypertension 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, of the knee Surgical History History of revision of total replacement of hip joint Revision of right total hip arthroplasty History of arthroscopic knee surgery Hx of tonsillectomy History of total colectomy History of total replacement of both hip joints Hx of shoulder surgery Arthroscopic right shoulder surgery Hx of arthroscopy of right knee Family History Other Diabetes Lung cancer Social History Smoking and tobacco/nicotine status: former use of tobacco/nicotine Quit status (tobacco/nicotine): has quit using Year quit tobacco: 1972 Former quit date comment: 1 pack per day for 5 years Alcohol intake: never Substance/Drug Use: never Lives independently: Yes Household members: spouse Marital status: Number of children: 3 Pets and animals: No
[2024-10-28] MEDS: sodium chloride 0.9% 1,000 ML 30 ML IV (10:34)
--- NOTE | 2024-10-28 11:18 | W.PM.OPSUD ---
Surgery/Procedure H&P Update DATE OF PROCEDURE: October 28, 2024 DATE H&P PERFORMED: 10/23/24 H&P UPDATE INFORMATION: I have reviewed H&P completed within last 30 days, I have examined patient prior to procedure and No changes to prior documentation PREOP DIAGNOSIS: Follicular lymphoma PLANNED PROCEDURE: Operation Date: 10/28/24 11:35 Proposed Procedures p Portacath Placement [id number], Z95.828(Not Applicable) - Domingo Benedict MD
[2024-10-28] MEDS: ceFAZolin 2,000 mg SDV 2000 MG IVP (11:19)
[2024-10-28] MEDS: lidocaine-epi 1% 20 mL INJ INJECTION (11:35)
[2024-10-28] MEDS: heparin, porcine 1,000 unit/mL INJ 10 mL 10000 UNIT IRRIGATION (11:36)
[2024-10-28] MEDS: BUPivacaine 0.25% INJ 10 mL INJECTION (11:36)
--- NOTE | 2024-10-28 11:47 | PM.OP ---
Operative Report Date of procedure: October 28, 2024 Pre-op diagnosis: Lymphoma Post-op diagnosis: same Post-op findings: Tip of catheter at atriocaval junction confirmed with intraoperative fluoroscopy. Procedure done: Port-A-Cath placement Implants: Port-A-Cath Specimens removed/disposition: N/A Pathology: none sent Surgeon: Domingo Benedict MD Button Maker: N/A Anesthesia: MAC Estimated blood loss (mL): 10 Complications: N/A Findings: Tip of catheter at atriocaval junction confirmed with intraoperative fluoroscopy. Condition: stable Disposition: same day Brief History: 78-year-old male presented for Port-A-Cath placement. Discussed risk and benefits and patient agreed to proceed with Port-A-Cath placement. Procedure: Patient was brought into the operating room and a timeout was carried out. Procedure was done under MAC. Patient was placed supine with the arms tucked and in Trendelenburg. Patient was prepped and draped in the usual sterile fashion. Using ultrasound guidance the right internal jugular vein was accessed. A guidewire was then placed down to the atriocaval junction using fluoroscopy. The finder needle was removed and the guidewire was secured. I then turned my attention to creating a pocket over the right chest. Make sure to locally infiltrated using plain lidocaine and bupivacaine at the site of the pocket and throughout the tunnel site. I confirmed adequate hemostasis at the pocket. I then proceeded to place the port that was already preassembled and flushed with heparinized saline and the chest pocket. I tunneled the catheter from the chest to the neck at the site where I accessed the internal jugular vein. I measured and adjusted the length of the catheter so it would reach the atrial caval junction. At this point, I used a dilator to dilate the tract into the internal jugular vein using fluoroscopy. I removed the guidewire and proceeded to thread the central venous catheter through the introducer. In the process, I removed the sheath as a completely pushed the catheter into the internal jugular vein. I then confirmed adequate placement of the catheter by performing intraoperative interpretation of fluoroscopy. The tip of the catheter was confirmed to be placed in the atriocaval junction. There were no kinks noted throughout the trajectory of the catheter. I then proceeded to test the port and was satisfied with its functionality. I proceeded to flushed the catheter without any issues. I then hep-locked the port. Skin was closed using deep dermal 3-0 Vicryl, subcuticular 4-0 Monocryl, and Dermabond. Patient was then transferred to PACU without any complications.
--- NOTE | 2024-10-28 12:38 | ANE.PACU2 ---
Inpatient post-anesthesia follow up: Airway intact: Yes Vital signs: Temperature 97.1 F Pulse Rate 71 Respiratory Rate 17 Blood Pressure 126/67 Pulse Oximetry 96 Oxygen Delivery Me thod Room Air Oxygen Flow Rate Fraction of Inspir ed Oxygen Hydration adequate: Yes Nausea and vomiting: No Pain level: 2 Mental status: Baseline
== END 2024-10-28 12:38 | disposition home or self-care (01) ==
PROVIDERS: PCP Physician Assistant; Visit Provider Student in an Organized Health Care Education/Training Program
PROC: (CPT 36561; principal; 2024-10-28 11:35)
DX: C82.90 Follicular lymphoma, unspecified, unspecified site (principal); Z79.82 Long term (current) use of aspirin; E11.22 Type 2 diabetes mellitus with diabetic chronic kidney disease; I12.9 Hypertensive chronic kidney disease with stage 1 through stage 4 chronic kidney disease, or unspecified chronic kidney disease; N18.9 Chronic kidney disease, unspecified; E78.5 Hyperlipidemia, unspecified; Z87.891 Personal history of nicotine dependence
CPT/HCPCS: 36561; 76000; 77001; C1788; J0690; J1644; J2704; J3010; J3490; J7030; J9999

== ENCOUNTER 2024-11-05 09:00 | Oncology outpatient (recurring) (ONCR) | payer MEDICARE, SELFPAY ==
[2024-10-13 12:57] LABS: Basophils % 0.4 %; Eosinophils # 0.2 10^3/uL (0.0-0.8); Eosinophils % 2.9 %; Hematocrit 35.3 % (37-53); Lymphocytes # 1.2 10^3/uL (0.8-4.8); Lymphocytes % 16.7 %; Mean Corpuscular HGB Conc 31.4 g/dL (30-55); Mean Corpuscular Hemoglobin 26.2 pg (27-33); Mean Corpuscular Volume 83.3 fl (82-101); Mean Platelet Volume 8.5 fL (7.4-10.4); Monocytes # 0.7 10^3/uL (0.2-0.9); Monocytes % 9.6 %; Neutrophils # 5.13 10^3/uL (1.8-7.7); Neutrophils % 70.1 %; Nucleated Red Blood Cells % 0 %; Platelet Count 228 10^3/cmm (157-399); Red Blood Count 4.24 10^6/uL (3.85-5.65); Red Cell Distribution Width 14.8 % (12.1-15.1); White Blood Count 7.31 10^3/uL (3.29-11.43)
[2024-10-13 13:17] LABS: Alanine Aminotransferase 11 U/L (0-41); Albumin Level 3.7 g/dL (3.5-5.2); Alkaline Phosphatase 98 U/L (40-130); Anion Gap 16.3 (5-19); Aspartate Amino Transferase 15 U/L (0-40); Blood Urea Nitrogen 17 mg/dL (8-23); Calcium 9.2 mg/dL (8.5-10.5); Carbon Dioxide 23 mmol/L (22-29); Chloride 101 mmol/L (98-107); Globulin 3.5 g/dL (1.3-4.6); Glucose 94 mg/dL (65-115); Lactate Dehydrogenase 115 U/L (135-225); Osmolality Calculated 283 mOsm/kg (285-295); Potassium 4.3 mmol/L (3.5-5.1); Sodium 136 mmol/L (136-145); Total Bilirubin 0.2 mg/dL (0.15-1.2); Total Protein 7.2 g/dL (6.6-8.7)
[2024-10-13 15:04] LABS: Hepatitis A Antibody IgM Non-Reactive (Nonreactive); Hepatitis B Core AB, Total Non-Reactive (Nonreactive); Hepatitis B Surface AB < 3.5 (11.5-1000); Hepatitis B Surface Antigen Non-Reactive (Nonreactive); Hepatitis C Virus Antibody Non-Reactive (Nonreactive)
--- NOTE | 2024-10-21 08:00 | US_ITS ---
WS: [id number] TESTICULAR ULTRASOUND HISTORY: Follicular lymphoma grade II COMPARISON: PET/CT 10/09/2024 TECHNIQUE: Real-time and color Doppler imaging utilized to perform a testicular ultrasound. Right testicle: 3.6 cm x 2.8 cm x 2.3 cm. Normal size and echogenicity. No mass or torsion. There are a few scattered echogenic foci within the testicle. No infiltrating discrete mass is identified although there is mild heterogeneity. Good color Doppler within the testicle. Slightly increased color Doppler in the RIGHT testicle as compared to the LEFT. No significant hydrocele. Right epididymis: Normal epididymis with no increased vascularity. Left testicle: 3.3 cm x 2.1 cm x 2.0 cm. Normal size and echogenicity. No mass or torsion. Mildly heterogeneous testicle. No discrete identifiable mass. Normal color Doppler is present throughout. Systolic and diastolic velocities are both present. No significant hydrocele. Left epididymis: Normal epididymis with no increased vascularity. US/US scrotum [id number] IMPRESSION: 1. Testicles are normal size with mild diffuse heterogeneity. 2. No discrete identifiable mass within either testicle. 3. There is very slight increased vascularity within the RIGHT testicle as com pared to the LEFT. This may represent a mild orchitis.
[2024-11-04 08:09] LABS: Basophils % 0.4 %; Eosinophils # 0.3 10^3/uL (0.0-0.8); Eosinophils % 2.9 %; Hematocrit 35.1 % (37-53); Lymphocytes # 1.6 10^3/uL (0.8-4.8); Lymphocytes % 17.4 %; Mean Corpuscular HGB Conc 32.2 g/dL (30-55); Mean Corpuscular Volume 80.9 fl (82-101); Mean Platelet Volume 8.1 fL (7.4-10.4); Monocytes # 0.8 10^3/uL (0.2-0.9); Monocytes % 8.4 %; Neutrophils # 6.34 10^3/uL (1.8-7.7); Neutrophils % 70.5 %; Nucleated Red Blood Cells % 0 %; Platelet Count 216 10^3/cmm (157-399); Red Blood Count 4.34 10^6/uL (3.85-5.65); Red Cell Distribution Width 14.6 % (12.1-15.1); White Blood Count 9.01 10^3/uL (3.29-11.43)
[2024-11-04 08:24] LABS: Alanine Aminotransferase 14 U/L (0-41); Albumin Level 3.8 g/dL (3.5-5.2); Alkaline Phosphatase 100 U/L (40-130); Aspartate Amino Transferase 15 U/L (0-40); Blood Urea Nitrogen 13 mg/dL (8-23); Calcium 9.4 mg/dL (8.5-10.5); Carbon Dioxide 25 mmol/L (22-29); Chloride 95 mmol/L (98-107); Glucose 148 mg/dL (65-115); Osmolality Calculated 279 mOsm/kg (285-295); Sodium 133 mmol/L (136-145); Total Bilirubin 0.4 mg/dL (0.15-1.2); Total Protein 7.8 g/dL (6.6-8.7)
[2024-11-04] MEDS: sodium chloride 0.9% 250 ML 75 ML IV (09:25)
[2024-11-04] MEDS: acetaminophen 325 mg Tablet 650 MG PO (09:26)
[2024-11-04] MEDS: dexamethasone 4 mg/mL INJ 5 mL 12 MG IVP (09:31)
[2024-11-04] MEDS: ondansetron 2 mg/ML SDV 2 mL 8 MG IVP (09:32)
[2024-11-04] MEDS: diphenhydrAMINE 50 mg/mL SDV 1mL 25 MG IVP (09:32)
[2024-11-04 10:16] VITALS: BP 135/69; PULSE 73; RESP 18; TEMP 36.6; O2SAT 99
[2024-11-04] MEDS: SODIUM CHLORIDE 0.9% IV ×2 (10:16→14:37)
[2024-11-04] MEDS: RITUXIMAB PVVR IV (10:16)
[2024-11-04 11:24] VITALS: BP 179/68; PULSE 62; RESP 17; TEMP 36.4; O2SAT 95
[2024-11-04 11:55] VITALS: PULSE 65; RESP 17; TEMP 36.1; O2SAT 95
[2024-11-04 13:30] VITALS: BP 135/68; PULSE 70; RESP 17; O2SAT 92
[2024-11-04 14:10] VITALS: BP 125/69; PULSE 68; RESP 17; TEMP 36.4; O2SAT 96
[2024-11-04] MEDS: BENDAMUSTINE IV (14:37)
[2024-11-04 15:00] VITALS: BP 134/68; PULSE 75; TEMP 36.3; O2SAT 96
[2024-11-05 09:11] VITALS: BP 138/78; PULSE 82; TEMP 37.1
[2024-11-05] MEDS: dexamethasone 4 mg/mL INJ 5 mL 12 MG IVP (09:17)
[2024-11-05] MEDS: sodium chloride 0.9% 250 ML 75 ML IV (09:17)
[2024-11-05] MEDS: palonosetron 0.25 mg/5 mL SDV IVP (09:18)
[2024-11-05] MEDS: SODIUM CHLORIDE 0.9% IV (09:36)
[2024-11-05] MEDS: BENDAMUSTINE IV (09:36)
[2024-11-05] MEDS: pegfilgrastim 6 mg/0.6 mL Kit (onpro) SUBCUT (09:53)
[2024-11-05 10:07] VITALS: BP 138/70; PULSE 74; RESP 16; TEMP 36.7; O2SAT 97
== END 2024-11-05 16:33 | disposition home or self-care (01) ==
PROVIDERS: Nurse Practitioner Family; PCP Physician Assistant; Visit Provider Internal Medicine Medical Oncology
DX: Z53.9 Procedure and treatment not carried out, unspecified reason; Z51.11 Encounter for antineoplastic chemotherapy; C82.18 Follicular lymphoma grade II, lymph nodes of multiple sites; Z79.899 Other long term (current) drug therapy
CPT/HCPCS: 36415; 76870; 80053; 83615; 85025; 86705; 86706; 86709; 86803; 87340; 96372; 96375; 96411; 96413; 96415; 99214; 99215; J1100; J1200; J2405; J2469; J2506; J7040; J7050; J9034; J9999; Q5119

== ENCOUNTER → 2024-11-12 08:19 | Outpatient (BNVA) | payer MEDICARE, SELFPAY | PROVIDERS: PCP Physician Assistant; Visit Provider Student in an Organized Health Care Education/Training Program | DX: C82.18 Follicular lymphoma grade II, lymph nodes of multiple sites (principal) | CPT/HCPCS: 99213 ==

== ENCOUNTER → 2024-11-30 07:48 | Outpatient (BNVA) | payer MEDICARE, SELFPAY | PROVIDERS: PCP Physician Assistant; Visit Provider Podiatrist Foot & Ankle Surgery | DX: E11.42 Type 2 diabetes mellitus with diabetic polyneuropathy (principal); L60.3 Nail dystrophy; E11.8 Type 2 diabetes mellitus with unspecified complications; I73.9 Peripheral vascular disease, unspecified | CPT/HCPCS: 11721 ==

== ENCOUNTER 2024-12-03 08:00 | Oncology outpatient (recurring) (ONCR) | payer MEDICARE, SELFPAY ==
[2024-11-11 10:28] LABS: Hematocrit 35.2 % (37-53); Hemoglobin 11.10 g/dL (11.27-16.99); Mean Corpuscular HGB Conc 31.5 g/dL (30-55); Mean Corpuscular Hemoglobin 26.3 pg (27-33); Mean Corpuscular Volume 83.4 fl (82-101); Nucleated Red Blood Cells % 0 %; Platelet Count 184 10^3/cmm (157-399); Red Blood Count 4.22 10^6/uL (3.85-5.65); White Blood Count 15.83 10^3/uL (3.29-11.43)
[2024-11-11 11:00] LABS: Alanine Aminotransferase 11 U/L (0-41); Albumin Level 3.5 g/dL (3.5-5.2); Alkaline Phosphatase 140 U/L (40-130); Anion Gap 16.8 (5-19); Aspartate Amino Transferase 12 U/L (0-40); Blood Urea Nitrogen 13 mg/dL (8-23); Calcium 8.7 mg/dL (8.5-10.5); Carbon Dioxide 25 mmol/L (22-29); Chloride 101 mmol/L (98-107); Creatinine Clr Calc Pharmacy 80.3532; Globulin 3.3 g/dL (1.3-4.6); Glucose 211 mg/dL (65-115); Osmolality Calculated 294 mOsm/kg (285-295); Potassium 3.8 mmol/L (3.5-5.1); Slide Review Slide Review Perform; Sodium 139 mmol/L (136-145); Total Protein 6.8 g/dL (6.6-8.7)
[2024-11-17 07:39] LABS: Hematocrit 33.6 % (37-53); Hemoglobin 11.00 g/dL (11.27-16.99); Mean Corpuscular HGB Conc 32.7 g/dL (30-55); Mean Corpuscular Hemoglobin 26.7 pg (27-33); Mean Corpuscular Volume 81.6 fl (82-101); Nucleated Red Blood Cells % 0 %; Platelet Count 159 10^3/cmm (157-399); Red Blood Count 4.12 10^6/uL (3.85-5.65); White Blood Count 10.92 10^3/uL (3.29-11.43)
[2024-11-17 07:56] LABS: Alanine Aminotransferase 11 U/L (0-41); Albumin Level 3.5 g/dL (3.5-5.2); Alkaline Phosphatase 137 U/L (40-130); Anion Gap 18.0 (5-19); Aspartate Amino Transferase 17 U/L (0-40); Blood Urea Nitrogen 12 mg/dL (8-23); Calcium 9.3 mg/dL (8.5-10.5); Carbon Dioxide 22 mmol/L (22-29); Chloride 95 mmol/L (98-107); Creatinine Clr Calc Pharmacy 72.3179; Globulin 3.9 g/dL (1.3-4.6); Glucose 129 mg/dL (65-115); Osmolality Calculated 273 mOsm/kg (285-295); Potassium 4.0 mmol/L (3.5-5.1); Sodium 131 mmol/L (136-145); Total Protein 7.4 g/dL (6.6-8.7)
[2024-11-17 10:35] LABS: Ferritin 238 ng/mL (30-400); Iron 29 ug/dL (59-158); Total Iron Binding Capacity 330 mcg/dl; Unsaturated Iron Binding 301 ug/dL (112-347)
[2024-11-24 09:05] LABS: Hematocrit 32.9 % (37-53); Hemoglobin 10.40 g/dL (11.27-16.99); Mean Corpuscular HGB Conc 31.6 g/dL (30-55); Mean Corpuscular Hemoglobin 26.5 pg (27-33); Mean Corpuscular Volume 83.7 fl (82-101); Nucleated Red Blood Cells % 0 %; Platelet Count 230 10^3/cmm (157-399); Red Blood Count 3.93 10^6/uL (3.85-5.65); White Blood Count 6.32 10^3/uL (3.29-11.43)
[2024-11-24 09:22] LABS: Alanine Aminotransferase 12 U/L (0-41); Albumin Level 3.5 g/dL (3.5-5.2); Alkaline Phosphatase 105 U/L (40-130); Anion Gap 15.8 (5-19); Aspartate Amino Transferase 14 U/L (0-40); Blood Urea Nitrogen 8 mg/dL (8-23); Calcium 8.7 mg/dL (8.5-10.5); Carbon Dioxide 23 mmol/L (22-29); Chloride 98 mmol/L (98-107); Creatinine Clr Calc Pharmacy 89.1831; Globulin 3.4 g/dL (1.3-4.6); Glucose 200 mg/dL (65-115); Osmolality Calculated 280 mOsm/kg (285-295); Potassium 3.8 mmol/L (3.5-5.1); Sodium 133 mmol/L (136-145); Total Protein 6.9 g/dL (6.6-8.7)
[2024-12-01 09:35] LABS: Hematocrit 33.5 % (37-53); Hemoglobin 10.80 g/dL (11.27-16.99); Mean Corpuscular HGB Conc 32.2 g/dL (30-55); Mean Corpuscular Hemoglobin 27.3 pg (27-33); Mean Corpuscular Volume 84.8 fl (82-101); Nucleated Red Blood Cells % 0 %; Platelet Count 169 10^3/cmm (157-399); Red Blood Count 3.95 10^6/uL (3.85-5.65); White Blood Count 8.20 10^3/uL (3.29-11.43)
[2024-12-01 10:01] LABS: Alanine Aminotransferase 12 U/L (0-41); Albumin Level 3.6 g/dL (3.5-5.2); Alkaline Phosphatase 98 U/L (40-130); Anion Gap 15.3 (5-19); Aspartate Amino Transferase 14 U/L (0-40); Blood Urea Nitrogen 13 mg/dL (8-23); Calcium 9.0 mg/dL (8.5-10.5); Carbon Dioxide 25 mmol/L (22-29); Chloride 100 mmol/L (98-107); Creatinine Clr Calc Pharmacy 79.6266; Globulin 3.4 g/dL (1.3-4.6); Glucose 238 mg/dL (65-115); Magnesium 1.3 mg/dL (1.7-2.3); Osmolality Calculated 290 mOsm/kg (285-295); Potassium 4.3 mmol/L (3.5-5.1); Sodium 136 mmol/L (136-145); Total Protein 7.0 g/dL (6.6-8.7); Uric Acid 3.6 mg/dL (3.4-7.0)
[2024-12-02 08:10] VITALS: BP 130/69; PULSE 66; RESP 16; TEMP 36.6; O2SAT 99
[2024-12-02] MEDS: dexamethasone 4 mg/mL INJ 5 mL 12 MG IVP (08:31)
[2024-12-02] MEDS: diphenhydrAMINE 50 mg/mL SDV 1mL 25 MG IVP (08:37)
[2024-12-02] MEDS: ondansetron 2 mg/ML SDV 2 mL 8 MG IVP (08:39)
[2024-12-02] MEDS: SODIUM CHLORIDE 0.9% IV ×2 (09:08→12:27)
[2024-12-02] MEDS: RITUXIMAB PVVR IV (09:08)
[2024-12-02 09:46] VITALS: BP 121/67; PULSE 58; RESP 16; TEMP 36.3; O2SAT 95
[2024-12-02 10:16] VITALS: BP 126/65; PULSE 63; RESP 16; TEMP 36.6; O2SAT 95
[2024-12-02 10:48] VITALS: BP 131/73; PULSE 60; RESP 16; TEMP 36.2; O2SAT 97
[2024-12-02] MEDS: BENDAMUSTINE IV (12:27)
[2024-12-02 12:58] VITALS: BP 125/66; PULSE 74; RESP 17; TEMP 36.5; O2SAT 96
[2024-12-03 07:57] VITALS: BP 129/71; PULSE 79; TEMP 36.8; O2SAT 97
[2024-12-03] MEDS: dexamethasone 4 mg/mL INJ 5 mL 12 MG IVP (08:26)
[2024-12-03] MEDS: BENDAMUSTINE IV (09:00)
[2024-12-03] MEDS: SODIUM CHLORIDE 0.9% IV (09:00)
[2024-12-03] MEDS: pegfilgrastim 6 mg/0.6 mL Kit (onpro) SUBCUT (09:30)
[2024-12-03 09:36] VITALS: BP 118/69; PULSE 67; RESP 16; TEMP 36.3; O2SAT 96
== END 2024-12-03 23:59 | disposition home or self-care (01) ==
PROVIDERS: Nurse Practitioner; Nurse Practitioner Family; PCP Physician Assistant; Visit Provider Internal Medicine
DX: Z53.9 Procedure and treatment not carried out, unspecified reason; Z51.11 Encounter for antineoplastic chemotherapy; C82.18 Follicular lymphoma grade II, lymph nodes of multiple sites; Z79.52 Long term (current) use of systemic steroids; Z79.899 Other long term (current) drug therapy
CPT/HCPCS: 36415; 36591; 80053; 82728; 83540; 83550; 83615; 83735; 84100; 84550; 85025; 96366; 96375; 96377; 96413; 96415; 99213; 99214; J1100; J1200; J2405; J2469; J2506; J7040; J7050; J9034; J9999; Q5119

== ENCOUNTER 2024-12-31 08:00 | Oncology outpatient (recurring) (ONCR) | payer MEDICARE, SELFPAY ==
[2024-12-14 09:52] LABS: Hematocrit 34.4 % (37-53); Hemoglobin 11.20 g/dL (11.27-16.99); Mean Corpuscular HGB Conc 32.6 g/dL (30-55); Mean Corpuscular Hemoglobin 27.1 pg (27-33); Mean Corpuscular Volume 83.3 fl (82-101); Nucleated Red Blood Cells % 0 %; Platelet Count 150 10^3/cmm (157-399); Red Blood Count 4.13 10^6/uL (3.85-5.65); White Blood Count 7.98 10^3/uL (3.29-11.43)
[2024-12-14 10:08] LABS: Alanine Aminotransferase 13 U/L (0-41); Albumin Level 3.5 g/dL (3.5-5.2); Alkaline Phosphatase 133 U/L (40-130); Anion Gap 14.2 (5-19); Aspartate Amino Transferase 18 U/L (0-40); Blood Urea Nitrogen 10 mg/dL (8-23); Calcium 8.7 mg/dL (8.5-10.5); Carbon Dioxide 23 mmol/L (22-29); Chloride 97 mmol/L (98-107); Creatinine Clr Calc Pharmacy 79.8031; Globulin 3.4 g/dL (1.3-4.6); Glucose 245 mg/dL (65-115); Osmolality Calculated 277 mOsm/kg (285-295); Potassium 4.2 mmol/L (3.5-5.1); Sodium 130 mmol/L (136-145); Total Protein 6.9 g/dL (6.6-8.7)
[2024-12-29 08:12] LABS: Hematocrit 34.9 % (37-53); Hemoglobin 11.40 g/dL (11.27-16.99); Mean Corpuscular HGB Conc 32.7 g/dL (30-55); Mean Corpuscular Hemoglobin 28.0 pg (27-33); Mean Corpuscular Volume 85.7 fl (82-101); Nucleated Red Blood Cells % 0 %; Platelet Count 164 10^3/cmm (157-399); Red Blood Count 4.07 10^6/uL (3.85-5.65); White Blood Count 5.69 10^3/uL (3.29-11.43)
[2024-12-29 08:33] LABS: Alanine Aminotransferase 12 U/L (0-41); Albumin Level 3.8 g/dL (3.5-5.2); Alkaline Phosphatase 102 U/L (40-130); Anion Gap 14.9 (5-19); Aspartate Amino Transferase 15 U/L (0-40); Blood Urea Nitrogen 11 mg/dL (8-23); Calcium 8.8 mg/dL (8.5-10.5); Carbon Dioxide 25 mmol/L (22-29); Chloride 101 mmol/L (98-107); Creatinine Clr Calc Pharmacy 65.5820; Globulin 2.9 g/dL (1.3-4.6); Glucose 165 mg/dL (65-115); Osmolality Calculated 287 mOsm/kg (285-295); Potassium 3.9 mmol/L (3.5-5.1); Sodium 137 mmol/L (136-145); Total Protein 6.7 g/dL (6.6-8.7)
[2024-12-30 08:17] VITALS: BP 117/61; PULSE 60; TEMP 36.5; O2SAT 96
[2024-12-30] MEDS: diphenhydrAMINE 50 mg/mL SDV 1mL 25 MG IVP (08:44)
[2024-12-30] MEDS: ondansetron 2 mg/ML SDV 2 mL 8 MG IVP (08:51)
[2024-12-30] MEDS: dexamethasone 4 mg/mL INJ 5 mL 12 MG IVP (08:57)
[2024-12-30] MEDS: RITUXIMAB PVVR IV (09:36)
[2024-12-30] MEDS: SODIUM CHLORIDE 0.9% IV ×2 (09:36→13:10)
[2024-12-30 09:50] VITALS: BP 113/66; PULSE 65; TEMP 36.1; O2SAT 97
[2024-12-30 10:40] VITALS: BP 108/63; PULSE 62; RESP 17; TEMP 36.1; O2SAT 97
[2024-12-30 11:20] VITALS: BP 116/65; PULSE 76; RESP 16; TEMP 36.1; O2SAT 97
[2024-12-30] MEDS: BENDAMUSTINE IV (13:10)
[2024-12-30 13:30] VITALS: BP 120/74; PULSE 78; RESP 18; TEMP 36.4; O2SAT 98
[2024-12-31 08:05] VITALS: BP 128/71; PULSE 78; TEMP 36.5; O2SAT 97
[2024-12-31] MEDS: dexamethasone 4 mg/mL INJ 5 mL 12 MG IVP (08:32)
[2024-12-31] MEDS: SODIUM CHLORIDE 0.9% IV (09:30)
[2024-12-31] MEDS: BENDAMUSTINE IV (09:30)
[2024-12-31 09:52] VITALS: BP 145/67; PULSE 72; RESP 18; TEMP 36.6; O2SAT 97
[2024-12-31] MEDS: pegfilgrastim 6 mg/0.6 mL Kit (onpro) SUBCUT (09:58)
== END 2024-12-31 23:59 | disposition home or self-care (01) ==
PROVIDERS: Internal Medicine Medical Oncology; PCP Physician Assistant; Visit Provider Internal Medicine
DX: Z51.11 Encounter for antineoplastic chemotherapy; C82.18 Follicular lymphoma grade II, lymph nodes of multiple sites; Z79.52 Long term (current) use of systemic steroids; Z79.899 Other long term (current) drug therapy; Z53.9 Procedure and treatment not carried out, unspecified reason
CPT/HCPCS: 36591; 80053; 83615; 85025; 96368; 96375; 96377; 96413; 96415; 99214; J1100; J1200; J2405; J2469; J2506; J7040; J7050; J9034; J9999; Q5119

== ENCOUNTER 2025-01-28 07:48 | Oncology outpatient (recurring) (ONCR) | payer MEDICARE, SELFPAY ==
--- NOTE | 2025-01-22 12:30 | PETR_ITS ---
PROCEDURE INFORMATION: Exam: PET/CT Skull Base to Mid-thigh Exam date and time: 01/22/2025 1:18 PM Age: 79 years old Clinical indication: Condition or disease; Primary cancer: Lymphoma, prior surgery; Surgery date: 6+ months; Surgery type: Colon, appy LABS AND CLINICAL REPORTS: Glucose: 119 mg/dl Treatment strategy for malignancy (PET staging): Restaging (PS) TECHNIQUE: Imaging protocol: Following at least four-hour fasting and following the injection of radiopharmaceutical, low dose CT images were obtained. Then, PET images were obtained. Attenuation corrected images were constructed using the CT scan. Fused images of PET and CT were reviewed. The standardized uptake values (SUV) reported below are maximum values within a region of interest, expressed in gm/ml. Exam includes orbital meatal line to mid-thigh. SUV normalization method: BodyWeight Radiopharmaceutical: 10.18 mCi F-18 FDG (Fluorodeoxyglucose), IV. Time of imaging post radiopharmaceutical administration: 45 minutes Injection site: right ac COMPARISON: PT PET skull to thigh INIT [id number] 10/09/2024 11:43 AM FINDINGS: Tubes, catheters and devices: Right chest port terminates at the SVC with short-segment linear uptake along the right brachiocephalic portion (SUV max 3.8), axial images 86-92. Brain: Visualized brain has normal physiologic uptake. Salivary glands: Resolved bilateral FDG avid parotid and submandibular gland masses. Pharynx: No abnormal uptake. Larynx: No abnormal uptake. Lungs, pleura and trachea: No abnormal uptake. Mild dependent atelectasis. Non FDG avid right anterior pleural calcification. Stable 1 cm subpleural basal left lower lobe nodule without FDG avidity is likely benign, axial image 144. Heart: Normal physiologic uptake. Coronary arteries: Heavy coronary artery calcification. Mediastinal space: No abnormal uptake. Liver: No abnormal uptake. Gallbladder and biliary ducts: No abnormal uptake. Cholelithiasis. Pancreas: No abnormal uptake. Spleen: No abnormal uptake. Adrenal glands: No abnormal uptake. Kidneys and ureters: Normal physiologic uptake. Stomach and bowel: Stable postsurgical changes from prior colectomy with distal anastomosis. No abnormal uptake. Vasculature: No abnormal uptake. Heavy systemic atherosclerotic calcification with stable infrarenal abdominal aortic aneurysm measuring up to 4.7 cm and right common iliac artery dilatation measuring 2.1 cm. Lymph nodes: Decreased size and FDG uptake of left para-aortic lymphadenopathy measuring 3.2 cm on axial image 189 with SUV max 4.6, previously 6.1 x 4.7 cm with SUV max 13.4. Remaining retroperitoneal lymphadenopathy has resolved. Skeleton: Stable moderate compression deformity of the L2 vertebral body without suspicious abnormal uptake. Degenerative changes along the axial skeletal system and both shoulders. Bilateral total hip arthroplasties and partially imaged right femoral plate and screw fixation. Decreased FDG uptake about the proximal right femur with underlying soft tissue thickening showing stable CT appearance likely indicating decreased inflammation. Soft tissues: No abnormal uptake in the visualized head, neck, chest, abdomen, pelvis, and extremities. [id number]-left gluteal muscle fatty atrophy. METRICS: Mediastinal blood pool: SUV mean 2.3 Liver uptake: SUV mean 2.8 PET/PET skull to thigh INIT [id number] IMPRESSION: 1. Deauville 4 partial treatment response with decreased size and metabolic activity of left para-aortic lymphadenopathy. Resolution of remaining retroperitoneal lymphadenopathy as well as multiple bilateral FDG avid parotid and submandibular gland masses. 2. Linear FDG uptake along right brachiocephalic vein chest port catheter may be inflammatory, possibly thrombosis. 3. Additional chronic and incidental findings as above.
[2025-01-26 08:25] LABS: Hematocrit 36.0 % (37-53); Hemoglobin 11.80 g/dL (11.27-16.99); Mean Corpuscular HGB Conc 32.8 g/dL (30-55); Mean Corpuscular Hemoglobin 28.4 pg (27-33); Mean Corpuscular Volume 86.7 fl (82-101); Nucleated Red Blood Cells % 0 %; Platelet Count 140 10^3/cmm (157-399); Red Blood Count 4.15 10^6/uL (3.85-5.65); White Blood Count 6.52 10^3/uL (3.29-11.43)
[2025-01-26 08:44] LABS: Alanine Aminotransferase 13 U/L (0-41); Albumin Level 3.9 g/dL (3.5-5.2); Alkaline Phosphatase 105 U/L (40-130); Anion Gap 15.8 (5-19); Aspartate Amino Transferase 17 U/L (0-40); Blood Urea Nitrogen 13 mg/dL (8-23); Calcium 9.0 mg/dL (8.5-10.5); Carbon Dioxide 23 mmol/L (22-29); Chloride 101 mmol/L (98-107); Globulin 2.9 g/dL (1.3-4.6); Glucose 157 mg/dL (65-115); Osmolality Calculated 285 mOsm/kg (285-295); Potassium 3.8 mmol/L (3.5-5.1); Sodium 136 mmol/L (136-145); Total Protein 6.8 g/dL (6.6-8.7)
[2025-01-27 08:19] VITALS: BP 136/71; PULSE 66; RESP 18; TEMP 36.6; O2SAT 97
--- NOTE | 2025-01-27 08:22 | PC.PHAR ---
ON 01/26/25 I RECEIVED A HANDWRITTEN NOT FROM DR EDWARDS THAT I AM TO APPROVE HIS 01/27&01/28 TREATMENT. I WILL PROCEED WITH APPROVAL ONCE PATIENT ARRIVES AND NURSES REVIEW PER PROTOCOL.
[2025-01-27] MEDS: dexamethasone 4 mg/mL INJ 5 mL 12 MG IVP (09:00)
[2025-01-27] MEDS: diphenhydrAMINE 50 mg/mL SDV 1mL 25 MG IVP (09:05)
[2025-01-27] MEDS: ondansetron 2 mg/ML SDV 2 mL 8 MG IVP (09:07)
[2025-01-27 10:04] VITALS: BP 109/66; PULSE 64; RESP 18; TEMP 36.2; O2SAT 98
[2025-01-27] MEDS: SODIUM CHLORIDE 0.9% IV ×2 (10:04→13:08)
[2025-01-27] MEDS: RITUXIMAB PVVR IV (10:04)
[2025-01-27 10:39] VITALS: BP 115/62; PULSE 58; RESP 18; TEMP 36.2; O2SAT 96
[2025-01-27 11:11] VITALS: BP 119/68; PULSE 71; RESP 18; TEMP 36.1; O2SAT 99
[2025-01-27 11:42] VITALS: BP 125/72; PULSE 64; RESP 18; TEMP 36.2; O2SAT 98
[2025-01-27 12:58] VITALS: BP 128/71; PULSE 65; RESP 17; TEMP 35.9; O2SAT 97
[2025-01-27] MEDS: BENDAMUSTINE IV (13:08)
[2025-01-28 07:58] VITALS: BP 127/61; PULSE 74; RESP 16; TEMP 36.7; O2SAT 98
[2025-01-28] MEDS: dexamethasone 4 mg/mL INJ 5 mL 12 MG IVP (08:10)
[2025-01-28] MEDS: SODIUM CHLORIDE 0.9% IV (08:40)
[2025-01-28] MEDS: BENDAMUSTINE IV (08:40)
[2025-01-28] MEDS: pegfilgrastim 6 mg/0.6 mL Kit (onpro) SUBCUT (09:25)
== END 2025-01-28 23:59 | disposition home or self-care (01) ==
PROVIDERS: Nurse Practitioner Family; PCP Physician Assistant; Visit Provider Internal Medicine
DX: Z51.11 Encounter for antineoplastic chemotherapy (principal); C82.18 Follicular lymphoma grade II, lymph nodes of multiple sites; Z79.899 Other long term (current) drug therapy; Z79.52 Long term (current) use of systemic steroids
CPT/HCPCS: 36591; 78815; 80053; 83615; 85025; 96375; 96377; 96409; 96411; 96413; 96415; 99214; A9552; J1100; J1200; J2405; J2469; J2506; J7040; J7050; J9034; J9999; Q5119

== ENCOUNTER → 2025-02-02 07:14 | Outpatient (BNVA) | payer MEDICARE, SELFPAY | PROVIDERS: PCP Physician Assistant; Visit Provider Podiatrist Foot & Ankle Surgery | DX: E11.42 Type 2 diabetes mellitus with diabetic polyneuropathy (principal); L60.3 Nail dystrophy; I73.9 Peripheral vascular disease, unspecified; E11.8 Type 2 diabetes mellitus with unspecified complications | CPT/HCPCS: 11721 ==

== ENCOUNTER 2025-02-10 12:36 | Emergency (ER) | payer MEDICARE, SELFPAY ==
[2025-02-10 12:38] VITALS: BP 139/65; PULSE 76; RESP 18; TEMP 36.7; O2SAT 97; BMI 29.4
--- NOTE | 2025-02-10 12:39 | XRR_ITS ---
PROCEDURE INFORMATION: Exam: XR Left Hip Exam date and time: 02/10/2025 12:44 PM Age: 79 years old Clinical indication: Injury or trauma; Fall; Blunt trauma (contusions or hematomas); Prior surgery; Surgery date: 6+ months; Surgery type: Left hip TECHNIQUE: Imaging protocol: Radiologic exam of the left hip. Views: 2 or 3 views hip with pelvis when performed. COMPARISON: CT angio abdomen pelvis [id number] 08/27/2024 8:27 AM FINDINGS: Tubes, catheters and devices: There are surgical clips projecting over the left pelvis. Bones/joints: There is dislocation of the femoral component of a total hip prosthesis from the acetabular component. No acute fracture is detected. A well-defined corticated calcific density is seen projecting lateral to the acetabular roof, also present on a prior CT scan. Diffuse osteopenia is present. Soft tissues: Unremarkable. XR/XR hip LT 2-3V wo/w pel* [id number] IMPRESSION: Prosthetic hip dislocation as described.
--- NOTE | 2025-02-10 12:40 | W.ED.LOWEXIN ---
HPI - Extremity Injury (Lower) General: Chief Complaint: Extremity Injury, Lower Stated Complaint: Hip out of place Source: patient and EMS Mode of arrival: EMS Limitations: no limitations History of Present Illness: 79-year-old male had a history of a hip replacement he states he believes in 2004 the left hip states he has had multiple dislocations of that left hip prostheses since then. He states that today he was rolling up a hose in the left hip and when out needed fell. He states he did hit his elbow has abrasion but denies any pain denies hitting his head does have externally rotated left leg states that he feels like his hip is dislocated again rates his pain a 4 out of 10 Related Data Home Medications ?Medication ?Instructions ?Recorded ?Confirmed aspirin 81 mg tablet,delayed 81 mg PO DAILY 05/20/19 02/02/25 release (Adult Low Dose Aspirin) cholecalciferol (vitamin D3) 25 1,000 unit PO DAILY 05/20/19 02/02/25 mcg (1,000 unit) capsule cinnamon bark 500 mg capsule 2,000 mg PO DAILY 05/20/19 02/02/25 (Cinnamon) diphenoxylate-atropine 2.5 2 tab PO TID 05/20/19 02/02/25 mg-0.025 mg tablet (Lomotil) fluticasone propionate 50 1 spray intranasal BID 05/20/19 02/02/25 mcg/actuation nasal spray,suspension (Flonase Allergy Relief) multivitamin 1 tab PO DAILY 12/22/20 02/02/25 amlodipine 5 mg tablet (Norvasc) 7.5 mg PO DAILY 08/16/22 02/02/25 calcium carbonate 500 mg PO DAILY 08/18/24 02/02/25 atorvastatin 80 mg tablet 40 mg PO DAILY 09/15/24 02/02/25 amoxicillin 500 mg capsule mg PO 12/29/24 02/02/25 cyanocobalamin (vitamin B-12) mcg IM 12/29/24 02/02/25 1,000 mcg/mL injection solution Previous Rx's ?Medication ?Instructions ?Recorded right cmc brace #1 ea 06/04/22 left hip abduction brace #1 ea 08/18/24 ondansetron HCl 4 mg tablet 4 mg PO Q6H PRN nausea and 10/14/24 vomiting #30 tabs prochlorperazine maleate 10 mg 10 mg PO Q4H PRN mild nausea #30 10/14/24 tablet (Compazine) tabs valacyclovir 500 mg tablet 500 mg PO BID #60 tabs 10/14/24 sulfamethoxazole 800 1 tab PO BID 7 days #14 tabs 11/12/24 mg-trimethoprim 160 mg tablet (Bactrim DS) allopurinol 300 mg tablet 300 mg PO DAILY #30 tabs 02/02/25 ferrous gluconate 324 mg (37.5 mg 324 mg PO DAILY #30 tabs 02/04/25 iron) tablet Allergies Allergy/AdvReac Type Severity Reaction Status Date / Time chlorthalidone Allergy Unknown Verified 02/02/25 07:17 lisinopril Allergy ALGY-Anaphy Verified 02/02/25 07:17 laxis metformin Allergy Unknown Verified 02/02/25 07:17 metoprolol Allergy ADR-Drowsy Verified 02/02/25 07:17 Review of Systems Musc: Reports: extremity pain PFSH ED PFSH: Medical History Arthritis of carpometacarpal (CMC) joint of right thumb Vitamin B12 deficiency Macular degeneration Chronic kidney disease Benign prostatic hyperplasia Degenerative arthritis Peripheral neuropathy Ulcerative colitis Hyperlipidemia Type 2 diabetes mellitus Lumbar stenosis with neurogenic claudication Retroperitoneal lymphadenopathy AAA (abdominal aortic aneurysm) Hypertension 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, of the knee Surgical History History of revision of total replacement of hip joint Revision of right total hip arthroplasty History of arthroscopic knee surgery Hx of tonsillectomy History of total colectomy History of total replacement of both hip joints Hx of shoulder surgery Arthroscopic right shoulder surgery Hx of arthroscopy of right knee Family History Other Diabetes Lung cancer Social History Smoking and tobacco/nicotine status: former use of tobacco/nicotine Quit status (tobacco/nicotine): has quit using Year quit tobacco: 1972 Former quit date comment: 1 pack per day for 5 years Alcohol intake: never Substance/Drug Use: never Lives independently: Yes Household members: spouse Marital status: Number of children: 3 Pets and animals: No Physical Exam Const: COMMON NORMALS: no acute distress, patient oriented x3 and healthy appearing HENMT: COMMON NORMALS: normocephalic and atraumatic HEAD & SCALP: normocephalic and atraumatic Eye: COMMON NORMALS: conjunctivae normal CONJUNCTIVA: Yes conjunctivae normal Neck/C-Spine: COMMON NORMALS: full ROM and supple Chest: COMMONS NORMALS: normal inspection of the chest Resp: COMMON NORMALS: normal respiratory effort, No retractions, No use of accessory muscles and clear to auscultation bilaterally AUSCULTATION: clear to auscultation bilaterally Cardio: COMMON NORMALS: regular rate, regular rhythm and No murmurs present (Cardio) RATE: regular rate RHYTHM: regular rhythm Extremity: NARRATIVE EXTREMITY EXAM: Abrasion noted to left elbow no deformity or tenderness does have rotation of left leg and shortening distal pulses sensation intact Neuro: COMMON NORMALS: patient oriented x3, moves all extremities and no focal motor deficits Psych: COMMON NORMALS: mental status grossly normal, Normal thought process present and cooperative THOUGHT PROCESS: Normal thought process present Skin: COMMON NORMALS: no rashes or lesions noted and no wounds GENERAL SKIN EXAM: no rashes or lesions noted Procedures Orthopedic Joint Reduction Joint #1: Time Out Performed: Yes Side: left Joint Reduction Location: hip Analgesia: procedural sedation Technique used: traction/counter-traction Post-reduction neuro exam: intact Post-reduction vascular: intact Post Reduction X-Ray Obtained: Yes Post Reduction X-Ray Results: reduced Patient Tolerated Procedure: well Additional Comments: start time 1313 end time 1320 Procedural Sedation Indication: fracture/dislocation reduction ASA Class: II Time of Last PO Intake: 09:00 Preparation: rn cardiac rehab applied and pulse oximeter IV Propofol dose (mg): 100 Patient Tolerated Procedure: well Complications: none Additional Comments: start time 1313 end time 1320 Course Vital Signs: Vital signs: Vital Signs Temperature 98.1 F 02/10/25 12:38 Pulse Rate 68 02/10/25 13:25 Respiratory Rate 18 02/10/25 12:38 Blood Pressure 104/58 02/10/25 13:25 Pulse Oximetry 96 02/10/25 13:25 Oxygen Delivery Me thod Nasal Cannula 02/10/25 13:25 Oxygen Flow Rate 2 02/10/25 13:25 MDM - Extremity Injury (Lower) Medical Decision Making Patient present presents here with left hip injury differential includes hip dislocation versus fracture x-ray does show dislocations there is no signs of a fracture. He was put under procedural sedation did use 100 mg of propofol start time was 1313 and time was 1320. No complications during the sedation was able to reduce his hip with traction countertraction. X-ray showed the successful hip reduction. He is now awake and alert and feels much improved. Did place in a knee immobilizer he is to weight-bear as tolerated he is to follow-up with his orthopedist Dr. Castillo patient understands and agrees to plan. Distal pulses sensation intact after the relocation Medical Records I reviewed the patient's medical records. Lab Data I reviewed the patient's lab results. Radiology Impressions Hip/Pelvis X-Ray 02/10/25 12:39 IMPRESSION: Prosthetic hip dislocation as described. All radiology interpretation(s) finalized by discharge Discharge Plan Discharge Patient Disposition: Home Clinical Impression: Dislocation of internal left hip prosthesis, initial encounter Condition: Stable Prescriptions: No Action diphenoxylate-atropine [Lomotil] 2.5-0.025 mg tablet 2 tab PO TID aspirin [Adult Low Dose Aspirin] 81 mg tablet,delayed release (DR/EC) 81 mg PO DAILY fluticasone propionate [Flonase Allergy Relief] 50 mcg/actuation spray,suspension 1 spray INTRANASAL BID cinnamon bark [Cinnamon] 500 mg capsule 2,000 mg PO DAILY cholecalciferol (vitamin D3) 1,000 unit capsule 1,000 unit PO DAILY amlodipine [Norvasc] 5 mg tablet 7.5 mg PO DAILY (DME) right cmc brace See Rx Instructions .Route .MEDSUPPLY Qty: 1 0RF Rx Instructions: As directed calcium carbonate 500 mg calcium (1,250 mg) tablet 500 mg PO DAILY (DME) left hip abduction brace See Rx Instructions .Route .MEDSUPPLY Qty: 1 0RF Rx Instructions: As directed amoxicillin 500 mg capsule PO cyanocobalamin (vitamin B-12) 1,000 mcg/mL solution IM atorvastatin 80 mg tablet 40 mg PO DAILY sulfamethoxazole-trimethoprim [Bactrim DS] 800-160 mg tablet 1 tab PO BID 7 Days Qty: 14 0RF ondansetron HCl 4 mg tablet 4 mg PO Q6H PRN (Reason: nausea and vomiting) Qty: 30 3RF prochlorperazine maleate [Compazine] 10 mg tablet 10 mg PO Q4H PRN (Reason: mild nausea) Qty: 30 3RF valacyclovir 500 mg tablet 500 mg PO BID Qty: 60 5RF Rx Instructions: Continue 3 months post treatment for prevention of viral infection allopurinol 300 mg tablet 300 mg PO DAILY Qty: 30 3RF ferrous gluconate 324 mg (37.5 mg iron) tablet 324 mg PO DAILY Qty: 30 0RF multivitamin Tablet 1 tab PO DAILY Discharge Orders: Discharge ED (Routine); Ordered 02/10/25 Ordered By: Venus Chapamn Referrals: Amirah Mckeon PA [Primary Care Provider, Physicians Associate Professor Of Biostatistics] Asher Castillo DO [Physician, Orthopedics] - 4-7 days Discharge Diet: Advance as tolerated Discharge Activity: Resume usual activity Patient Instructions: Hip Dislocation (ED) Print Language: Persian Coding Level of Care Code ED Hand Molder Meat for Harris Terrell
--- OUTSIDE RECORDS SUMMARY | 2025-02-10 12:41 | XMS_ITS | Data Portability ---
Author Organization [facility], [facility] Address [address] [address] Care Team Providers Care [facility] Name Role Phone AMIRAH BAÑUELOS Primary Care Provider Unavailabl e Assessment No assessment recorded. Plan of Treatment Reminders Order Date Submit Date Provider Last Modified By Organization Details Last Modified Time Details Appointments OFFICE VISIT 20 2024 08:20A M AMIRAH BAÑUELOS PA-C Not available Not available Not available Lab None recorded. Referral None recorded. Procedures None recorded. Surgeries None recorded. Imaging None recorded. Medication Orders cyanocoba sharee (vit B-12) 1,000 mcg/mL injection solution 2024 025 Not available 12/15/2024 21:42:24 Patient TargetsNo targets recorded. Patient InstructionsNo instructions recorded. Reason for Referral None Reported. Problems Name Problem SNOMED Code Status Onset Date Resolution Date Notes Provider Name and Address Organization Details Recorded Time Wedge fracture of lumbar vertebra 867685846 Active 2021 COMPRESS ION FRACTURE OF L2 VERTEBRA WITH ROUTINE HEALING, SUBSEQUE NT ENCOUNTE R; Recorded 04/24/20 22 6:56AM by Julia Huang LPN, Office Visit; Promoted ; acuity set as *; JULIA james [facility] 5 20:39:11 Large prostate 877768990 Active 2021 BPH (BENIGN PROSTATI C HYPERPLA ELSA); Recorded 04/24/20 22 8:53AM by Amirah Bañuelos PA-C, Office Visit; Promoted ; acuity set as *; JULIA james, [facility] 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 3 09:12:01 Vitamin B deficien cy 82023315 Active 2022 JULIA HUANG null, [facility] 5 20:39:03 Chronic low back pain 822512563 Active 2022 JULIA HUANG null, [facility] 5 20:38:12 Abdomina l aortic aneurysm without rupture 54570092 Active 2022 JULIA HUANG null, [facility] 5 20:38:09 Ulcerati ve pancolit is 698440435 Active 2022 JULIA HUANG null, [facility] 5 20:38:58 Prediabe jaret 378236514 Active 2022 JULIA HUANG null, [facility] 5 20:38:54 Hyperlip idemia 90278077 Active 2022 JULIA RENATACHAPINCITO [facility] 5 20:38:20 [facility] hyperten hosea 82453020 Active 2022 JULIA james, [facility] 5 20:38:15 Iron deficien cy anemia 27368255 Active 2023 JULIAKIRAN RIVERAJESSA [facility] 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 Dr. Nima DORADO JULIAKIRAN HUANG [facility], [facility] 19:13:52 Notes:pt brings in own meds and is given cyancobalmin 1000mcg IM in the left deltoid, she has no reaction at this time.lot # expires , [facility] # IS _[id number]_. KM/dh Problem Notes None recorded. Procedures Surgical History Date Name Laterality Status Provider Name and Address Organization Details Recorded Time 4 Psa screening completed AMIRAH BAÑUELOS PA-C [address] [place], [address], [facility], [place].[facility] 04/21/2024 10:09:47 4 Incision/Draina ge-Simple completed MERLE SILVA [address] [place], [address], [facility], [place] 10/14/2023 09:09:59 2 ophthalmic examination and evaluation completed JULIA HUANG [facility], [place] 04/18/2023 07:46:11 2 bone density scan completed JULIA MIKEBIA [facility], [place] 04/18/2023 07:45:57 Imaging Results None recorded. Procedure Notes None recorded. Medical Equipment None Reported. Allergies Allergen ID Allergen Name Allergen Category Reaction Reaction Severity Criticality Documentation Date Start Date Code Code System Note Provider Name and Address Organization Details Recorded Time 183 lisinopri l medicatio n Not available Not available Not available 07/31/2022 10059 [facility] 3 14:15:11 184 Toprol medicatio n Not available Not available Not available 07/31/2022 84305 5 RxNorm JULIA james [facility] 3 14:15:21 185 morphine medicatio n Not available Not available Not available 07/31/2022 7052 [facility] 3 14:15:30 97630 morphine sulfate medicatio n Not available Not available Not available 12/08/2022 56437 RxNorm Comme nt: Recor ded 04/24 6:56A 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, 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, 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 ; Promo bhaskar; Signi chrissy ce: *; Reaso n: Drug aller gy; ; Not Available [facility] 3 02:28:44 Medications Name Sig Start Date Stop Date Status Note LastModified by Organization Details LastModified Time celecoxib 200 mg capsule TAKE 1 CAPSULE BY MOUTH EVERY DAY NEEDED FOR PAIN 10/20 completed Not Available Not Available Not Available amoxicill in 500 mg capsule TAKE 1 CAPSULE BY MOUTH 3 TIMES A DAY UNTIL GONE active Not Available Not Available No t Available atorvasta tin 80 mg tablet TAKE 1/2 TABLET BY MOUTH EVERY DAY AT BEDTIME active Not Available Not Available No t Available metoprolo l succinate ER 50 mg tablet,ex tended release 24 hr TAKE 1 TABLET BY MOUTH EVERY DAY 10/23 completed Not Available Not Available Not Available ondansetr on HCl 4 mg tablet DISSOLVE 1 TABLET BY MOUTH EVERY 6 HOURS NEEDED FOR NAUSEA AND VOMITING 2024 active Not Available Not Available Not Avai lable diphenoxy late-atro pine 2.5 mg-0.025 mg tablet TAKE 2 TABLETS BY MOUTH 3 TIMES DAILY NEEDED. active Not Available Not Available No t Available chlorthal idone 25 mg tablet TAKE 1 TABLET BY MOUTH EVERY DAY 10/20 completed Not Available Not Available Not Available amlodipin e 5 mg tablet TAKE 1 AND 1/2 TABLETS BY MOUTH DAILY active Not Available Not Available No t Available prochlorp erazine maleate 10 mg tablet TAKE 1 TABLET BY MOUTH EVERY 4 HOURS NEEDED FOR MILD NAUSEA 2024 active Not Available Not Available Not Avai lable valacyclo vir 500 mg tablet PLEASE SEE ATTACHED FOR DETAILED DIRECTIO NS active Not Available Not Available No t Available sulfameth oxazole 800 mg-trimet hoprim 160 mg tablet TAKE 1 TABLET BY MOUTH TWICE A DAY FOR 7 DAYS 12/25 completed Not Available Not Available Not Available tramadol 50 mg tablet TAKE 1 TABLET BY MOUTH EVERY 6 HOURS NEEDED FOR PAIN FOR 7 DAYS 04/21 completed Not Available Not Available Not Available amoxicill in 500 mg tablet TAKE 4 TABLETS BY MOUTH 1 HOUR PRIOR TO DENTAL APPOINTM ENT 01/27 completed Not Available Not Available Not Available betametha sone acetate and sodium phos 6 mg/mL suspensio n for injection Take 6 mg every day by injectio n route for 1 day. 07/30 completed Not Available Not Available Not Available cephalexi n 500 mg capsule TAKE 1 CAPSULE BY MOUTH THREE TIMES A DAY FOR 7 DAYS 10/23 completed Not Available Not Available Not Available cyanocoba sharee (vit B-12) 1,000 mcg/mL injection solution INJECT 1ML INTO THE MUSCLE EVERY 4 WEEKS active Not Available Not Available No t Available allopurin ol 300 mg tablet TAKE 1 TABLET BY MOUTH DAILY active Not Available Not Available No t Available mupirocin 2 % topical ointment APPLY TO AFFECTED AREA TWICE A DAY DIRECTED active Not Available Not Available No t Available ondansetr on 4 mg disintegr ating tablet DISSOLVE 1 TAB ON TONGUE EVERY 8 HOURS FOR NAUSEA AND VOMITING POSTOP FOR 3 DAYS 10/20 completed Not Available Not Available Not Available fluticaso ne propionat e 50 mcg/actua tion nasal spray,olu pension SPRAY 1 SPRAY IN EACH NOSTRIL TWICE DAILY active Not Available Not Available No t Available doxycycli ne hyclate 100 mg tablet TAKE 1 TABLET BY MOUTH TWICE A DAY FOR 7 DAYS 10/20 completed Not Available Not Available Not Available amoxicill in 875 mg-potass ium clavulana te 125 mg tablet TAKE 1 TABLET BY MOUTH EVERY 12 HOURS FOR 7 DAYS 10/05 completed Not Available Not Available Not Available Flonase two times daily 10/13 completed vo KM/dh; 17478; Recorded 07/18/19 23 12:40PM by Julia Huang LPN (Authori isabel through Amirah Bañuelos PA-C), Refill Request; Refill Quantity : 1; Applicat or; Not Available Not Available Not Available calcium daily active 0; Recorded 04/24/20 22 6:56AM by Julia Huang LPN, Office Visit; Not Available Not Available Not Available Lipitor at bedtime 10/23 completed vo KM/dh; 0; Recorded 05/15/19 23 2:12PM by Julia Huang LPN, Annotati on/Adden dum; Not Available Not Available Not Available zinc 07/30 completed 0; Recorded 04/24/20 22 6:56AM by Julia Huang LPN, Office Visit; Not Available Not Available Not Available Aspirin EC daily active 0; Recorded 04/24/20 22 6:56AM by Julia Huang LPN, Office Visit; Not Available Not Available Not Available Lomotil three times daily prn 10/23 completed Recorded 05/16/19 23 7:51AM by Brandon Hirsch MD, Refill Request; Refill Quantity : 540; Tablet; Not Available Not Available Not Available Multivita mins daily active 0; Recorded 04/24/20 22 6:56AM by Julia Huang LPN, Office Visit; Not Available Not Available Not Available amlodipin e besylate (bulk) daily 10/13 completed vo KM/ will cut 10s in half; 05909; Recorded 06/12/19 23 2:12PM by Julia Huang LPN (Authori isabel through Amirah Bañuelos PA-C), Annotati on/Adden dum; Mail Order Quantity : 90 Tablet; Mail Order Days: 90 Days; Refill Quantity : 135; Tablet; Not Available Not Available Not Available ferrous gluconate 324 mg (37.5 mg iron) tablet TAKE 1 TABLET BY MOUTH EVERY DAY active Not Available Not Available No t Available Vitals Date Recorded Body height Body mass index (BMI) Body weight Oxygen saturation Oxygen saturation in Arterial blood by Pulse oximetry Heart rate Respiratory rate Body temperature Systolic And Diastolic Provider Name and Address Organization Details Last Updated DateTime 5 180.34 cm 29.3 kg/m2 50430.4 g 98 % 98 % 76 /min 18 /min 97.9 [degF] 136/80 mm[Hg] JULIA HUANG [facility] 5 09:16:09 Date Recorded Body height Body temperature Heart rate Oxygen saturation Oxygen saturation in Arterial blood by Pulse oximetry Provider Name and Address Organization Details Last Updated DateTime 5 180.34 cm 97.7 [degF] 75 /min 96 % 96 % [facility] 5 08:56:49 Social History Question Answer Notes LastModified by Organizat ion Details LastModified Time Tobacco Smoking Status [facility] 10/14/2023 08:29:55 When Did You Quit Smoking? 16+yearssinc elastcigaret te [email or web address] Information not available 04/21/2024 What Was The Date Of Your Most Recent Tobacco Screening? 04/21/2024 [email or web address] Information not available 04/21/2024 Sex: Unknown Functional Status None recorded. Mental Status None recorded. Family History Nothing Reported. Medical History No medical history recorded. Immunizations Vaccine Type Date Status Note Provider Nam e and Address Organization Details Recorded Time Tdap 3 completed AMIRAH BAÑUELOS PA-C [address] [place], [address], [facility] 10/23/2022 10:29:27 zoster live 8 completed Not Available [facility] 05/30/2023 08:55:18 Influenza, split virus, trivalent, preservative 3 completed Not Available [facility] 05/30/2023 08:55:18 Influenza, split virus, trivalent, preservative 4 completed Not Available [facility] 05/30/2023 08:55:18 zoster recombinant 9 completed AMIRAH BAÑUELOS PA-C [address] [place], [address], [facility] 10/23/2022 09:43:46 zoster recombinant 8 completed AMIRAH BAÑUELOS PA-C [address] [place], [address], [facility] 10/23/2022 09:43:47 pneumococcal polysaccharide PPV23 8 completed AMIRAH BAÑUELOS PA-C [address] [place], [address], [facility] 10/23/2022 09:43:47 Pneumococcal conjugate PCV 13 7 completed AMIRAH BAÑUELOS PA-C [address] [place], [address], [facility] 10/23/2022 09:43:47 Past Encounters Encounter ID Performer Location Encounter Start Date Encounter Closed Date Diagnosis/Indication Diagnosis SNOMED-CT Code Diagnosis ICD10 Code Diagnosis IMO Codes Diagnosis Note [id number] AMIRAH BAÑUELOS PA-C [facility] ([facility]) [address] [place] [address] 07/31/2022 08:59:09 09/04/2022 16:05:19 Cobalamin deficiency 075523574 E53.8 [id number] AMIRAH BAÑUELOS PA-C [facility] ([facility]) [address] [place] [phone] 09/11/2022 08:56:52 09/11/2022 19:15:32 Cobalamin deficiency 002513687 E53.8 Vitamin B deficiency 479 77959 E53.8 [id number] AMIRAH BAÑUELOS PA-C [facility] ([facility]) [address] [place] [phone] 10/23/2022 09:05:21 10/23/2022 11:34:45 Essential hypertension 84688276 I10 Hyperlipidemia 60285588 E78.5 Administra tion of diphtheria, pertussis, and tetanus vaccine 823776676 Z23 Prediabetes 749866141 R7 3.03 will get A1C in November Ulcerative pancolitis 44 5485086 K51.00 hx of pancolecto my. stable Abdominal aortic aneurysm without rupture 61457707 I71.40 Dr. Balderas monitors Adult [facility] th examination 461611572 Z00.00 CCA form filled out during today's office visit Reduced mobility 5214379 Z74.09 back pain chronic Chronic low back pain 27 5113100 M54.50 History of colectomy 427 829875 [place]90.49 [place] [id number] AMIRAH BAÑUELOS PA-C [facility] ([facility]) [address] [place] [phone] 12/04/2022 08:54:15 12/04/2022 11:40:09 Cobalamin deficiency 217564457 E53.8 [id number] AMIRAH BAÑUELOS PA-C [facility] ([facility]) [address] [place] [phone] 01/15/2023 09:04:11 01/15/2023 18:29:19 Cobalamin deficiency 488119781 E53.8 [id number] Brian Morton MD [facility] ([facility]) [address] [place] [phone] 03/08/2023 08:56:05 03/17/2023 04:04:02 Cobalamin deficiency 699768630 E53.8 [id number] AMIRAH BAÑUELOS PA-C [facility] ([facility]) [address] [place] [phone] 5 04/23/2023 09:01:56 04/23/2023 12:00:37 Cobalamin deficiency 767577780 E53.8 pt brings in his own medicine cyanobalam in 1000mcg is given IM in the left deltoid he tolerates it well exp11/10/19 25 lot [id number]. [facility] Essential hypertension 95070956 I10 Benign pro static hyperplasia 631846195 N40.0 Prediabetes 090088201 R7 3.03 [id number] Vel Bejarano DO [facility] ([facility]) [address] [place] [id number] 5 05/30/2023 08:54:47 05/30/2023 12:14:22 Cobalamin deficiency 482064287 E53.8 [id number] AMIRAH BAÑUELOS PA-C [facility] ([facility]) [address] [place] [id number] 5 07/09/2023 08:51:28 07/09/2023 09:32:51 Cobalamin deficiency 833631740 E53.8 pt brings in his own medicine cyanobalam in 1000mcg is given IM in the left deltoid he tolerates it well exp 12/09/2024 lot [id number]. [facility] [id number] AMIRAH BAÑUELOS PA-C [facility] ([facility]) [address] [place] [id number] 5 08/20/2023 08:56:01 08/20/2023 16:49:54 Cobalamin deficiency 723273014 E53.8 pt brings in his own medicine cyanobalam in 1000mcg is given IM in the right deltoid he tolerates it well exp 12/09/2024 lot [id number]. [facility] [id number] AMIRAH BAÑUELOS PA-C [facility] ([facility]) [address] [place] [id number] 5 09/27/2023 08:49:06 09/27/2023 09:26:43 Cobalamin deficiency 121749438 E53.8 pt brings in his own medicine cyanobalam in 1000mcg is given IM in the left deltoid he tolerates it well exp 5 lot [id number] formerly named [facility] [phone]- 01. [facility] [id number] MERLE SILVA [facility] ([facility]) [address] [place], [place] [phone] 5 10/14/2023 08:23:02 10/14/2023 09:13:20 Traumatic hematoma 360277351 T14.8XXA Keep pressure dressing in place for next 24 hours. Take cephalexin as prescribed .F/u if you develop elbow pain, skin erythema, fever, or symptoms not improving. [id number] AMIRAH BAÑUELOS PA-C [facility] ([facility]) [address] [place] [id number] 5 10/24/2023 09:03:27 10/24/2023 09:59:37 Cobalamin deficiency 405264899 E53.8 pt brings in his own medicine cyanobalam in 1000mcg is given IM in the left deltoid he tolerates it well exp 5 lot [id number] formerly named [facility] 64369-056- 01. / Fatigue 87400457 R53.83 Preventive dental procedure 26887333 Z01.20 Hyperglycemia 19249167 R 73.9 Essential hypertension 54356401 I10 Chronic ul cerative colitis 812741066 K51.00 CCA form filled out during today's office visit Abdominal aortic aneurysm without rupture 13330507 I71.40 Dr. Balderas monitors Hyperlipidemia 45555913 E78.5 Chronic low back pain 27 7285919 M54.50 Impaired mobility 624932 05 Z74.09 [id number] AMIRAH BAÑUELOS PA-C [facility] ([facility]) [address] [place] [phone] 5 12/24/2023 08:56:33 01/15/2024 04:07:17 Cobalamin deficiency 410062288 E53.8 pt brings in his own medicine cyanobalam in 1000mcg is given IM in the left deltoid he tolerates it well exp 5 lot [id number] formerly named [facility] [phone]- 01. [facility] [id number] AMIRAH BAÑUELOS PA-C [facility] ([facility]) [address] [place] [address] 5 01/21/2024 08:55:04 01/21/2024 10:21:48 Cobalamin deficiency 203969575 E53.8 pt brings in his own medicine cyanobalam in 1000mcg is given IM in the left deltoid he tolerates it will exp 5 lot [id number] formerly named [facility] [phone]- 01. [facility] [id number] AMIRAH BAÑUELOS PA-C [facility] ([facility]) [address] [place] [address] 5 01/28/2024 09:48:31 01/28/2024 10:31:30 Myositis 75834431 M60.9 x1 cc of betameth and 2 cc of lidocaine1 cc placed in 3 locations Pain of ri ght shoulder joint 7720225057 6087457 M25.356 [id number] AMIRAH BAÑUELOS PA-C [facility] ([facility]) [address] [place] [address] 5 02/25/2024 08:53:40 02/25/2024 10:21:43 Vitamin B deficiency 12269773 E53.8 pt brings in own meds and is given cyancobalm in 1000mcg IM in the left deltoid, she has no reaction at this time.lot #_[id number] EXP 05/12/[address] [facility] [phone]- [phone] [facility] [id number] AMIRAH BAÑUELOS PA-C [facility] ([facility]) [address] [place] [address] 5 03/18/2024 08:54:31 04/05/2024 04:16:36 Cobalamin deficiency 171121087 E53.8 pt brings in his own medicine cyanobalam in 1000mcg is given IM in the right deltoid he tolerates it will exp 5 lot [id number] formerly named [facility] [address]921- 01. [facility] [id number] AMIRAH BAÑUELOS PA-C [facility] ([facility]) [address] [place] [address] 5 04/14/2024 08:49:25 04/14/2024 11:51:16 Cobalamin deficiency 884691759 E53.8 pt brings in his own medicine cyanobalam in 1000mcg is given IM in the left deltoid he tolerates it will exp lot [id number] formerly named [facility] [phone]- 01. [facility] [id number] AMIRAH BAÑUELOS PA-C [facility] ([facility]) [address] [place] [id number] 5 04/21/2024 09:10:07 04/21/2024 10:12:19 Adult health examination 254836697 Z00.00 Essential hypertension 16912967 I10 Hyperlipidemia 76665666 E78.5 Prediabetes 767794836 R7 3.03 Cobalamin deficiency 190 706294 E53.8 Benign pro static hyperplasia 087345361 N40.0 History of total colectomy 5487938682 54367 Z90.49 due to chrones disease in the . does well with the bentyl Recurrent falls 63610377 2 R29.6 offered PT referal to work on balance and strengthen ing of the legs. He has some home exercises that he says he will start again [id number] AMIRAH BAÑUELOS PA-C [facility] ([facility]) [address] [place] [id number] 5 05/12/2024 08:40:34 05/12/2024 11:18:41 Cobalamin deficiency 006235238 E53.8 pt brings in his own meds, he is given cyanocobal odonnell 1000mcg/ml in the right deltoid he tolerates it well and has no reaction at this time. [id number] 05- lot [id number] EXP [facility] [id number] AMIRAH BAÑUELOS PA-C [facility] ([facility]) [address] [place] [id number] 5 06/09/2024 08:58:43 06/09/2024 10:37:49 Cobalamin deficiency 096263835 E53.8 pt brings in his own meds, he is given cyanocobal odonnell 1000mcg/ml in the right deltoid he tolerates it well and has no reaction at this time. [id number] 05- lot [id number] EXP [facility] [id number] AMIRAH BAÑUELOS PA-C [facility] ([facility]) [address] [place] [phone] 5 07/07/2024 08:55:52 07/07/2024 09:58:34 Cobalamin deficiency 016750247 E53.8 pt brings in his own meds, he is given cyanocobal odonnell 1000mcg/ml in the right deltoid he tolerates it well and has no reaction at this time. [id number] 05- lot [id number] EXP [facility] [id number] AMIRAH BAÑUELOS PA-C [facility] ([facility]) [address] [place] [phone] 5 07/30/2024 09:35:16 07/30/2024 10:58:13 Cobalamin deficiency 127020071 E53.8 pt brings in his own meds, he is given cyanocobal odonnell 1000mcg/ml in the left deltoid he tolerates it well and has no reaction at this time. [id number] - lot [id number] EXP [facility] Abdominal aortic aneurysm without rupture 18211727 I71.40 Lymphadenopathy 86139139 R59.1 messenteri c Ulcerative colitis 07687 004 K51.00 hx total colectomy in [place] . Hyperlipidemia 21316079 E78.5 Essential hypertension 94410284 I10 Chronic low back pain 27 6036440 M54.50 Prediabetes 012533962 R7 3.03 Iron defic iency anemia 26502635 D50.9 Mass of neck 751709771 R 22.1 parotid hard and swollen 4 cm non tender with nodes > 2 cm in the ant cervical chain x 2 [id number] AMIRAH BAÑUELOS PA-C [facility] ([facility]) [address] [place] [id number] 08/25/2024 08:51:55 09/08/2024 17:35:30 [id number] AMIRAH BAÑUELOS PA-C [facility] ([facility]) [address] [place] [phone] 5 09/04/2024 09:02:07 09/09/2024 07:43:07 Preoperative procedure [id number] Z01.495 [id number] AMIRAH BAÑUELOS PA-C [facility] ([facility]) [address] [place] [phone] 5 09/08/2024 08:47:04 09/08/2024 14:43:32 Cobalamin deficiency [id number] E53.8 pt brings in his own meds, he is given cyanocobal odonnell 1000mcg/ml in the left deltoid he tolerates it well and has no reaction at this time. [id number] 05 lot [id number] EXP [facility] [id number] AMIRAH BAÑUELOS PA-C [facility] (formerly [facility] [address] [place] [phone] 5 10/13/2024 08:47:24 10/13/2024 10:42:35 Cobalamin deficiency [id number] E53.8 pt brings in his own meds, he is given cyanocobal odonnell 1000mcg/ml in the right deltoid he tolerates it well and has no reaction at this time. [id number] 09-10 lot [id number] EXP august/2025 [facility] [id number] AMIRAH BAÑUELOS PA-C [facility] (formerly [facility] [address] [place] [phone] 5 10/20/2024 09:08:45 10/20/2024 10:29:17 Cobalamin deficiency [id number] E53.8 pt brings in his own meds, he is given cyanocobal odonnell 1000mcg/ml in the right deltoid he tolerates it well and has no reaction at this time. 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 will start chemo soon. managed by Dr. Herring at [facility].Locati on neck and abdomen with mets to bone. [id number] AMIRAH BAÑUELOS PA-C [facility] ([facility]) [address] [place] [phone] 11/12/2024 08:45:03 11/12/2024 10:09:42 [id number] Song Capellan MD [facility] ([facility]) [address] [place] [phone] 12/15/2024 08:56:17 12/15/2024 09:18:08 Vitamin B deficiency [id number] E53.9 [id number] AMIRAH BAÑUELOS PA-C [facility] ([facility]) [address] [place] [phone] 01/19/2025 08:41:11 01/19/2025 09:59:45 Cobalamin deficiency [id number] E53.8 pt brings in his own meds, he is given cyanocobal odonnell 1000mcg/ml in the right deltoid he tolerates it well and has no reaction at this time. [id number] - lot [id number] EXP KM/ Health Concerns Section Related Observation LastModified by Organization Detai ls LastModified Time None Recorded Concern Status LastModified by Organization Details LastModified Time None Recorded Advance Directives Directive None Recorded Payers Insurance Date Sequence Insurance Name Policy Number Policy Ulloa Covered Member ID Ulloa Member ID Guarantor Name 01/20/2025 1 [employer] (MEDICARE REPLACEMENT/ ADVANTAGE - PPO) [id number] Donta Gomes [id number] Donta Gomes Notes Date Note Type Note Provider Name and Address Organization Details Recorded Time 10/21/19 25 text/htm l HypertensionReported by PatientHPIFor quality, patient reportspressure. For context, patient reportsexertionandpositional. For associated symptoms, patient reportsfatigueanddecreased exercise tolerance. For severity, patient reportsgrade 1 (130-139/80-89). For duration, patient reportshas noted for years. For onset/timing, patient reportsgradual onset. For alleviating factors, patient reportsmedication. For self care, patient reportsblood pressure goal: 120/70. Non hodgkin lymphoma will start [place], pegfilgrast and neulasta AMIRAH BAÑUELOS PA-C [address] [place] [address], [phone], [facility] 10/20/2024 10:11:19
[2025-02-10] MEDS: morphine 4 mg/mL SDV 1 mL IVP (12:59)
[2025-02-10] MEDS: ondansetron 2 mg/ML SDV 2 mL 4 MG IVP (12:59)
[2025-02-10 13:13] VITALS: BP 108/66; PULSE 77; O2SAT 98
[2025-02-10] MEDS: propofol 10 mg/mL SDV 20 mL 100 MG IVP (13:13)
--- NOTE | 2025-02-10 13:17 | XRR_ITS ---
PROCEDURE INFORMATION: Exam: XR Left Hip Exam date and time: 02/10/2025 1:20 PM Age: 79 years old Clinical indication: Device placement; Other: Hip; Prior surgery; Surgery date: 6+ months TECHNIQUE: Imaging protocol: Radiologic exam of the left hip. Views: 1 view hip with pelvis when performed. 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 No acute fracture is detected. Soft tissues: Unremarkable. 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
[2025-02-10 13:20] VITALS: PULSE 77; O2SAT 96
[2025-02-10 13:25] VITALS: BP 104/58; PULSE 68; O2SAT 96
[2025-02-10 13:37] VITALS: BP 108/69; PULSE 67; RESP 16; O2SAT 98
[2025-02-10 13:38] VITALS: BP 108/69; PULSE 69; O2SAT 96
--- NOTE | 2025-02-10 13:46 | DCPLANNER ---
Message sent to Ortho for referral/ follow up Patient present presents here with left hip injury differential includes hip dislocation versus fracture x-ray does show dislocations there is no signs of a fracture. He was put under procedural sedation did use 100 mg of propofol start time was 1313 and time was 1320. No complications during the sedation was able to reduce his hip with traction countertraction. X-ray showed the successful hip reduction. He is now awake and alert and feels much improved. Did place in a knee immobilizer he is to weight-bear as tolerated he is to follow-up with his orthopedist Dr. Castillo patient understands and agrees to plan. Distal pulses sensation intact after the relocation
== END 2025-02-10 13:53 | disposition home or self-care (01) ==
PROVIDERS: Emergency Provider Emergency Medicine; PCP Physician Assistant
DX: T84.021A Dislocation of internal left hip prosthesis, initial encounter (principal); Z79.82 Long term (current) use of aspirin; Z87.891 Personal history of nicotine dependence; E11.22 Type 2 diabetes mellitus with diabetic chronic kidney disease; I12.9 Hypertensive chronic kidney disease with stage 1 through stage 4 chronic kidney disease, or unspecified chronic kidney disease; N18.9 Chronic kidney disease, unspecified; E78.5 Hyperlipidemia, unspecified; W19.XXXA Unspecified fall, initial encounter
CPT/HCPCS: 27265; 73501; 73502; 94799; 96374; 96375; 99152; 99285; E0114; J2270; J2405; J2704

== ENCOUNTER 2025-02-24 07:42 | Oncology outpatient (recurring) (ONCR) | payer MEDICARE, SELFPAY ==
[2025-02-23 08:10] LABS: Hematocrit 37.6 % (37-53); Hemoglobin 12.70 g/dL (11.27-16.99); Mean Corpuscular HGB Conc 33.8 g/dL (30-55); Mean Corpuscular Hemoglobin 29.6 pg (27-33); Mean Corpuscular Volume 87.6 fl (82-101); Nucleated Red Blood Cells % 0 %; Platelet Count 139 10^3/cmm (157-399); Red Blood Count 4.29 10^6/uL (3.85-5.65); White Blood Count 4.84 10^3/uL (3.29-11.43)
[2025-02-23 08:25] LABS: Alanine Aminotransferase 10 U/L (0-41); Albumin Level 4.1 g/dL (3.5-5.2); Alkaline Phosphatase 117 U/L (40-130); Anion Gap 17.9 (5-19); Aspartate Amino Transferase 14 U/L (0-40); Blood Urea Nitrogen 11 mg/dL (8-23); Calcium 9.1 mg/dL (8.5-10.5); Carbon Dioxide 23 mmol/L (22-29); Chloride 97 mmol/L (98-107); Globulin 2.8 g/dL (1.3-4.6); Glucose 161 mg/dL (65-115); Osmolality Calculated 281 mOsm/kg (285-295); Potassium 3.9 mmol/L (3.5-5.1); Sodium 134 mmol/L (136-145); Total Protein 6.9 g/dL (6.6-8.7)
[2025-02-23 09:50] LABS: Ferritin 152 ng/mL (30-400); Iron 41 ug/dL (59-158); Total Iron Binding Capacity 357 mcg/dl; Unsaturated Iron Binding 316 ug/dL (112-347)
[2025-02-24 08:12] VITALS: BP 121/68; PULSE 66; RESP 16; TEMP 36.6; O2SAT 98
[2025-02-24] MEDS: dexamethasone 4 mg/mL INJ 5 mL 12 MG IVP (08:36)
[2025-02-24] MEDS: diphenhydrAMINE 50 mg/mL SDV 1mL 25 MG IVP (08:39)
[2025-02-24] MEDS: ondansetron 2 mg/ML SDV 2 mL 8 MG IVP (08:42)
[2025-02-24] MEDS: SODIUM CHLORIDE 0.9% IV ×2 (09:03→12:02)
[2025-02-24] MEDS: RITUXIMAB PVVR IV (09:03)
[2025-02-24 09:38] VITALS: BP 119/71; PULSE 59; RESP 16; TEMP 35.9; O2SAT 95
[2025-02-24 10:08] VITALS: BP 118/72; PULSE 63; RESP 16; TEMP 35.9; O2SAT 98
[2025-02-24 10:49] VITALS: BP 112/60; PULSE 62; RESP 17; TEMP 35.9; O2SAT 98
[2025-02-24 11:52] VITALS: BP 113/67; PULSE 62; RESP 17; TEMP 36.1; O2SAT 96
[2025-02-24] MEDS: BENDAMUSTINE IV (12:02)
[2025-02-24 12:18] VITALS: BP 118/67; PULSE 63; RESP 16; TEMP 35.8; O2SAT 96
== END 2025-02-24 23:59 | disposition home or self-care (01) ==
PROVIDERS: Internal Medicine Medical Oncology; Nurse Practitioner; PCP Physician Assistant; Visit Provider Internal Medicine
DX: Z51.11 Encounter for antineoplastic chemotherapy (principal); Z51.12 Encounter for antineoplastic immunotherapy; C82.18 Follicular lymphoma grade II, lymph nodes of multiple sites; Z79.52 Long term (current) use of systemic steroids; Z79.899 Other long term (current) drug therapy
CPT/HCPCS: 36591; 80053; 82728; 83540; 83550; 83615; 85025; 96411; 96413; 96415; 99214; J1100; J1200; J2405; J7040; J7050; J9034; J9999; Q5119

== ENCOUNTER 2025-02-25 07:43 | Oncology outpatient (recurring) (ONCR) | payer MEDICARE, SELFPAY ==
[2025-02-25 08:00] VITALS: BP 113/65; PULSE 90; RESP 16; TEMP 36.6; O2SAT 98
[2025-02-25] MEDS: dexamethasone 4 mg/mL INJ 5 mL 12 MG IVP (08:11)
[2025-02-25] MEDS: SODIUM CHLORIDE 0.9% IV (08:33)
[2025-02-25] MEDS: BENDAMUSTINE IV (08:33)
[2025-02-25] MEDS: pegfilgrastim 6 mg/0.6 mL Kit (onpro) SUBCUT (08:53)
== END 2025-02-25 23:59 | disposition home or self-care (01) ==
LOC: ONCMED 07:44
PROVIDERS: PCP Physician Assistant; Visit Provider Internal Medicine
DX: Z51.11 Encounter for antineoplastic chemotherapy (principal); C82.18 Follicular lymphoma grade II, lymph nodes of multiple sites; Z79.899 Other long term (current) drug therapy; Z79.52 Long term (current) use of systemic steroids
CPT/HCPCS: 96375; 96377; 96413; J1100; J2469; J2506; J7050; J9034; J9999

== ENCOUNTER → 2025-03-02 08:08 | Outpatient (BNVA) | payer MEDICARE, SELFPAY | PROVIDERS: PCP Physician Assistant; Visit Provider Student in an Organized Health Care Education/Training Program | DX: T84.021A Dislocation of internal left hip prosthesis, initial encounter (principal); X58.XXXA Exposure to other specified factors, initial encounter | CPT/HCPCS: 73502; 99213 ==

== ENCOUNTER 2025-03-25 07:46 | Oncology outpatient (recurring) (ONCR) | payer MEDICARE, SELFPAY ==
[2025-03-23 08:00] LABS: Hematocrit 36.5 % (37-53); Hemoglobin 12.00 g/dL (11.27-16.99); Mean Corpuscular HGB Conc 32.9 g/dL (30-55); Mean Corpuscular Hemoglobin 29.3 pg (27-33); Mean Corpuscular Volume 89.2 fl (82-101); Nucleated Red Blood Cells % 0 %; Platelet Count 144 10^3/cmm (157-399); Red Blood Count 4.09 10^6/uL (3.85-5.65); White Blood Count 5.37 10^3/uL (3.29-11.43)
[2025-03-23 08:16] LABS: Alanine Aminotransferase 12 U/L (0-41); Albumin Level 4.0 g/dL (3.5-5.2); Alkaline Phosphatase 126 U/L (40-130); Anion Gap 16.9 (5-19); Aspartate Amino Transferase 17 U/L (0-40); Blood Urea Nitrogen 13 mg/dL (8-23); Calcium 8.9 mg/dL (8.5-10.5); Carbon Dioxide 22 mmol/L (22-29); Chloride 101 mmol/L (98-107); Creatinine Clr Calc Pharmacy 72.6166; Globulin 2.6 g/dL (1.3-4.6); Glucose 146 mg/dL (65-115); Osmolality Calculated 285 mOsm/kg (285-295); Potassium 3.9 mmol/L (3.5-5.1); Sodium 136 mmol/L (136-145); Total Protein 6.6 g/dL (6.6-8.7)
[2025-03-24 07:53] VITALS: BP 143/75; PULSE 80; RESP 17; TEMP 35.9; O2SAT 97
[2025-03-24] MEDS: diphenhydrAMINE 50 mg/mL SDV 1mL 25 MG IVP (08:17)
[2025-03-24] MEDS: ondansetron 2 mg/ML SDV 2 mL 8 MG IVP (08:27)
[2025-03-24] MEDS: dexamethasone 4 mg/mL INJ 5 mL 12 MG IVP (08:32)
[2025-03-24 09:13] VITALS: BP 120/63; PULSE 65; RESP 16; TEMP 36.2; O2SAT 96
[2025-03-24] MEDS: SODIUM CHLORIDE 0.9% IV ×2 (09:13→12:04)
[2025-03-24] MEDS: RITUXIMAB PVVR IV (09:13)
[2025-03-24 09:45] VITALS: BP 117/76; PULSE 68; RESP 16; TEMP 36.4; O2SAT 96
[2025-03-24 10:15] VITALS: BP 124/69; PULSE 66; RESP 16; TEMP 36.2; O2SAT 97
[2025-03-24 10:45] VITALS: BP 125/68; PULSE 67; RESP 16; TEMP 36.6; O2SAT 97
[2025-03-24] MEDS: BENDAMUSTINE IV (12:04)
[2025-03-24 12:30] VITALS: BP 122/82; PULSE 73; RESP 17; TEMP 35.9; O2SAT 96
[2025-03-25 08:05] VITALS: BP 133/69; PULSE 84; RESP 16; TEMP 36.9; O2SAT 95
[2025-03-25] MEDS: dexamethasone 4 mg/mL INJ 5 mL 12 MG IVP (08:10)
[2025-03-25] MEDS: BENDAMUSTINE IV (08:58)
[2025-03-25] MEDS: SODIUM CHLORIDE 0.9% IV (08:58)
[2025-03-25] MEDS: pegfilgrastim 6 mg/0.6 mL Kit (onpro) SUBCUT (09:20)
[2025-03-25 09:30] VITALS: BP 137/71; PULSE 71; RESP 16; TEMP 36.7; O2SAT 97
== END 2025-03-25 23:59 | disposition home or self-care (01) ==
PROVIDERS: Nurse Practitioner; PCP Physician Assistant; Visit Provider Internal Medicine
DX: Z51.11 Encounter for antineoplastic chemotherapy (principal); C82.18 Follicular lymphoma grade II, lymph nodes of multiple sites; Z79.899 Other long term (current) drug therapy; Z79.52 Long term (current) use of systemic steroids
CPT/HCPCS: 36591; 80053; 83615; 85025; 96375; 96377; 96411; 96413; 96415; 99214; J1100; J1200; J2405; J2469; J2506; J7040; J7050; J9034; J9999; Q5119

== ENCOUNTER → 2025-04-12 07:44 | Outpatient (BNVA) | payer MEDICARE, SELFPAY | PROVIDERS: PCP Physician Assistant; Visit Provider Podiatrist Foot & Ankle Surgery | DX: E11.42 Type 2 diabetes mellitus with diabetic polyneuropathy (principal); L60.3 Nail dystrophy; L84 Corns and callosities; I73.9 Peripheral vascular disease, unspecified; E11.8 Type 2 diabetes mellitus with unspecified complications | CPT/HCPCS: 11056; 11721 ==

== ENCOUNTER 2025-04-20 07:30 | Oncology outpatient (recurring) (ONCR) | payer MEDICARE, SELFPAY ==
--- NOTE | 2025-04-16 08:36 | PETR_ITS ---
PROCEDURE INFORMATION: Exam: PET/CT Skull Base to Mid-thigh Exam date and time: 04/16/2025 9:22 AM Age: 79 years old Clinical indication: Condition or disease; Primary cancer: Follicular lymphoma; Prior surgery; Surgery date: 6+ months; Surgery type: Colon, appy LABS AND CLINICAL REPORTS: Glucose: 173 mg/dl Treatment strategy for malignancy (PET staging): Restaging (PS) TECHNIQUE: Imaging protocol: Following at least four-hour fasting and following the injection of radiopharmaceutical, low dose CT images were obtained. Then, PET images were obtained. Attenuation corrected images were constructed using the CT scan. Fused images of PET and CT were reviewed. The standardized uptake values (SUV) reported below are maximum values within a region of interest, expressed in gm/ml. Exam includes orbital meatal line to mid-thigh. SUV normalization method: BodyWeight Radiopharmaceutical: 10.5 mCi F-18 FDG (Fluorodeoxyglucose), IV. Time of imaging post radiopharmaceutical administration: 47 minutes Injection site: 173 COMPARISON: PT PET skull to thigh INIT [id number] 01/22/2025 FINDINGS: Tubes, catheters and devices: Port catheter placed via the right internal jugular vein terminates in the superior vena cava. Brain: On the nondedicated limited brain images there is no abnormal distribution of the radiotracer in the hutchinson and white matter. Pharynx: Normal distribution of the radiotracer in nasopharyngeal, and oropharyngeal structures. Larynx: Normal distribution of the radiotracer in laryngeal structures. Lungs, pleura and trachea: No abnormal uptake. No lung nodules or masses. No pleural effusion. Heart: Normal physiologic uptake. Stable mild cardiomegaly. Severe coronary artery calcifications present. No pericardial effusion. Mediastinal space: No abnormal uptake. Liver: Normal size without abnormal radiotracer uptake. Gallbladder and biliary ducts: No abnormal uptake. Stable small calcified gallstones. Pancreas: Normal distribution of radiotracer. Spleen: Normal size without abnormal radiotracer uptake. Adrenal glands: No abnormal uptake. No nodules. Kidneys and ureters: Normal physiologic uptake. No hydronephrosis. Stomach and bowel: New diffusely increased uptake within the gastric body measuring up to 8.1 SUV and increased activity in multiple loops of small bowel in the right than left abdomen with no corresponding CT abnormality is likely benign. Stable changes after subtotal colectomy Vasculature: No abnormal uptake. 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 Lymph nodes: Left para-aortic lymphadenopathy on axial image 218 decreased from 3.2 x 3 cm/4.6 SUV to 2.6 x 2.3 cm/2.5 SUV in keeping with response to treatment. Skeleton: Stable changes post bilateral hip replacement. Persistent increased uptake (up to 5.7 SUV, previously 7 SUV) adjacent to proximal and distal ends of the right hip prosthesis suggestive of benign finding. Benign increased synovial uptake in both shoulders. Stable changes after bilateral rotator cuff repair surgery. 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 Stable moderate chronic compression of L2. Soft tissues: No abnormal uptake in the visualized head, neck, chest, abdomen, pelvis, and extremities. METRICS: Mediastinal blood pool: Max SUV of 2.7, mean SUV of 2.1 Liver uptake: Max SUV of 3.3, mean SUV of 2.6 PET/PET skull to thigh SUBS [id number] IMPRESSION: There is complete metabolic response to treatment with no evidence of FDG avid malignancy. The response score is 2 based on Deauville 5 point scale. Small volume residual retroperitoneal lymphadenopathy decreased in size and decreased in uptake from 4.6 SUV on the prior exam on 01/22/2025 to 2.5 SUV on the current exam below the maximal mediastinal blood pool uptake. Persistent benign increased uptake adjacent to both ends of the right hip prosthesis.
[2025-04-20 07:38] LABS: Hematocrit 33.2 % (37-53); Hemoglobin 11.30 g/dL (11.27-16.99); Mean Corpuscular HGB Conc 34.0 g/dL (30-55); Mean Corpuscular Hemoglobin 30.1 pg (27-33); Mean Corpuscular Volume 88.5 fl (82-101); Nucleated Red Blood Cells % 0 %; Platelet Count 102 10^3/cmm (157-399); Red Blood Count 3.75 10^6/uL (3.85-5.65); White Blood Count 5.85 10^3/uL (3.29-11.43)
[2025-04-20 07:56] LABS: Alanine Aminotransferase 12 U/L (0-41); Albumin Level 3.9 g/dL (3.5-5.2); Alkaline Phosphatase 124 U/L (40-130); Anion Gap 16.0 (5-19); Aspartate Amino Transferase 18 U/L (0-40); Blood Urea Nitrogen 15 mg/dL (8-23); Calcium 9.1 mg/dL (8.5-10.5); Carbon Dioxide 23 mmol/L (22-29); Chloride 98 mmol/L (98-107); Globulin 2.5 g/dL (1.3-4.6); Glucose 121 mg/dL (65-115); Osmolality Calculated 278 mOsm/kg (285-295); Potassium 4.0 mmol/L (3.5-5.1); Sodium 133 mmol/L (136-145); Total Protein 6.4 g/dL (6.6-8.7)
== END 2025-05-12 23:59 | disposition home or self-care (01) ==
PROVIDERS: PCP Physician Assistant; Visit Provider Nurse Practitioner
DX: C82.18 Follicular lymphoma grade II, lymph nodes of multiple sites; Z87.891 Personal history of nicotine dependence; Z79.899 Other long term (current) drug therapy; Z53.9 Procedure and treatment not carried out, unspecified reason
CPT/HCPCS: 36591; 78815; 80053; 83615; 85025; 99214; A9552